=== PATIENT | female | born 1955 | race Asian ===

== ENCOUNTER 2021-03-16 08:28 | Outpatient (REF) | payer OTHER, SELFPAY ==
[2021-03-16 09:38] LABS: Alanine Aminotransferase 42 U/L (0-31); Albumin Level 4.1 g/dL (3.5-5.0); Alkaline Phosphatase 98 U/L (39-117); Anion Gap 12 (12-20); Aspartate Amino Transferase 25 U/L (5-31); Bilirubin Total 0.9 mg/dL (0.0-1.0); Blood Urea Nitrogen 12 mg/dL (9-16); Carbon Dioxide 26 mmol/L (22-29); Chloride 107 mmol/L (96-108); Estimated Glomerular Filt Rate > 60; Glucose Random 122 mg/dL (60-115); Sodium 141 mmol/L (135-145); Total Protein 7.2 g/dL (6.5-8.0)
== END 2021-03-16 08:29 | disposition home or self-care (01) ==
LOC: HO.LAB 08:28
PROVIDERS: PCP Internal Medicine; Visit Provider Internal Medicine
DX: E78.00 Pure hypercholesterolemia, unspecified (principal); Z68.27 Body mass index [BMI] 27.0-27.9, adult
CPT/HCPCS: 36415; 80053

== ENCOUNTER 2021-11-16 06:42 | Outpatient (REF) | payer OTHER, SELFPAY ==
[2021-11-16 07:27] LABS: COVID-19 Test Negative (Negative)
== END 2021-11-16 06:43 | disposition home or self-care (01) ==
LOC: HO.LAB 06:42
PROVIDERS: PCP Internal Medicine; Visit Provider Internal Medicine
DX: Z20.822 Contact with and (suspected) exposure to COVID-19 (principal)
CPT/HCPCS: 36415; 87635

== ENCOUNTER 2022-04-22 07:44 | Outpatient (REF) | payer OTHER, SELFPAY ==
[2022-04-22 08:05] LABS: MANUAL DIFF FLAG NO
[2022-04-22 08:18] LABS: Basophils Absolute Auto 0.1 X10*3/uL (0.0-0.2); Basophils Percent Auto 1.2 % (0-2); Eosinophils Absolute Auto 0.1 X10*3/uL (0.0-0.4); Eosinophils Percent Auto 1.4 % (0-4); Hematocrit 41.2 % (37.0-47.0); Hemoglobin 13.6 g/dl (12.0-16.0); Imm Gran Abs Auto 0.03 X10*3/uL (0.00-0.03); Imm Gran Pct Auto 0.3 % (0.0-0.4); Lymphocytes Absolute Auto 2.6 X10*3/uL (1.2-4.9); Lymphocytes Percent Auto 28.2 % (20-40); Mean Corpuscular Hemoglobin 30.5 pg (27.0-33.0); Mean Corpuscular Volume 92.4 fL (80.0-98.0); Monocytes Absolute Auto 0.7 X10*3/uL (0.1-1.2); Monocytes Percent Auto 7.6 % (2-11); Neutrophils Absolute Auto 5.6 x10*3/uL (2.0-8.3); Neutrophils Percent Auto 61.3 % (45-73); Platelet Count 310 X10*3/uL (160-400); Red Blood Count 4.46 X10*6/uL (4.20-5.50); Red Cell Distribution Width 12.7 % (11.0-16.0); White Blood Count 9.2 X10*3/uL (4.8-10.8)
[2022-04-22 08:46] LABS: Alanine Aminotransferase 19 U/L (0-31); Albumin Level 4.3 g/dL (3.5-5.0); Alkaline Phosphatase 87 U/L (39-117); Anion Gap 12 (12-20); Aspartate Amino Transferase 22 U/L (5-31); Bilirubin Total 0.9 mg/dL (0.0-1.0); Blood Urea Nitrogen 17 mg/dL (9-16); Calcium 9.9 mg/dL (8.4-10.2); Carbon Dioxide 31 mmol/L (22-29); Chloride 103 mmol/L (96-108); Cholesterol 149 mg/dL; Estimated Glomerular Filt Rate > 60; Glucose Random 111 mg/dL (60-115); HDL Cholesterol 51 mg/dL; LDL Cholesterol Calculated 87 mg/dl; Potassium 4.7 mmol/L (3.3-5.1); Sodium 141 mmol/L (135-145); Total Protein 7.7 g/dL (6.5-8.0); Triglycerides 59 mg/dL
== END 2022-04-22 07:45 | disposition home or self-care (01) ==
LOC: HO.LAB 07:44
PROVIDERS: PCP Internal Medicine; Visit Provider Internal Medicine
DX: E78.00 Pure hypercholesterolemia, unspecified (principal); K21.9 Gastro-esophageal reflux disease without esophagitis; R30.0 Dysuria; R35.0 Frequency of micturition
CPT/HCPCS: 36415; 80053; 80061; 85025

== ENCOUNTER 2022-10-07 09:57 | Outpatient (REF) | payer OTHER, SELFPAY ==
--- NOTE | ~2022-10-07 | MM_ITS ---
EXAMINATION: MM SCREENING DIGITAL BREAST TOMOSYNTHESIS, BILATERAL CLINICAL INFORMATION: Screening. Asymptomatic. COMPARISON: Outside mammography 02/18/2021, 09/11/2019, 08/07/2018, 08/02/2018 ([facility]). TECHNIQUE: Digital breast tomosynthesis is performed in both the craniocaudal and mediolateral oblique views along with computer-aided detection (CAD). Synthesized 2D images are generated from the tomosynthesis. Additional left MLO view is provided. FINDINGS: There are scattered areas of fibroglandular density (ACR BI-RADS breast composition Category b). There are no significant masses, abnormal calcifications, or other abnormalities. Parenchymal pattern is similar to prior studies. There is no developing density or architectural abnormality. The axilla and skin contours are unremarkable. No significant changes. MM/MM tomosynthesis screening BI IMPRESSION: No mammographic evidence of malignancy. ASSESSMENT: BI-RADS 1: Negative RECOMMENDATION: Routine annual mammography screening. This patient's information was entered into a reminder system with a target due date for their next mammogram.
== END 2022-10-07 09:58 | disposition home or self-care (01) ==
LOC: HO.MAMMO 09:57
PROVIDERS: PCP Internal Medicine; Visit Provider Internal Medicine
DX: Z12.31 Encounter for screening mammogram for malignant neoplasm of breast (principal)
CPT/HCPCS: 77063; 77067

== ENCOUNTER 2023-03-23 08:17 | Outpatient (REF) | payer OTHER, SELFPAY ==
[2023-03-23 08:50] LABS: Alanine Aminotransferase 22 U/L (0-31); Albumin Level 4.1 g/dL (3.5-5.0); Alkaline Phosphatase 88 U/L (39-117); Anion Gap 12 (12-20); Aspartate Amino Transferase 21 U/L (5-31); Bilirubin Total 0.9 mg/dL (0.0-1.0); Blood Urea Nitrogen 13 mg/dL (9-16); Calcium 9.1 mg/dL (8.4-10.2); Carbon Dioxide 28 mmol/L (22-29); Chloride 108 mmol/L (96-108); Estimated Glomerular Filt Rate > 60; Glucose Random 125 mg/dL (60-115); Potassium 4.5 mmol/L (3.3-5.1); Sodium 143 mmol/L (135-145); Total Protein 7.1 g/dL (6.5-8.0)
== END 2023-03-23 08:18 | disposition home or self-care (01) ==
LOC: HO.LAB 08:17
PROVIDERS: PCP Internal Medicine; Visit Provider Internal Medicine
DX: Z00.00 Encounter for general adult medical examination without abnormal findings (principal); E78.00 Pure hypercholesterolemia, unspecified; Z86.010 Personal history of colon polyps
CPT/HCPCS: 36415; 80053

== ENCOUNTER 2023-10-14 10:00 | Outpatient (REF) | payer OTHER, SELFPAY | END 2023-10-14 10:01 | disposition home or self-care (01) | LOC: HO.MAMMO 10:00 | PROVIDERS: PCP Internal Medicine; Visit Provider Internal Medicine | DX: Z12.31 Encounter for screening mammogram for malignant neoplasm of breast (principal) | CPT/HCPCS: 77063; 77067 ==

== ENCOUNTER → 2023-10-14 10:30 | Outpatient (BNV) | payer OTHER, SELFPAY | PROVIDERS: PCP Internal Medicine; Visit Provider Radiology Diagnostic Radiology | DX: Z12.31 Encounter for screening mammogram for malignant neoplasm of breast (principal) | CPT/HCPCS: 77063; 77067 ==

== ENCOUNTER 2024-03-13 07:42 | Outpatient (REF) | payer OTHER, SELFPAY ==
[2024-03-13 07:54] LABS: MANUAL DIFF FLAG NO
[2024-03-13 08:46] LABS: Basophils Absolute Auto 0.1 X10*3/uL (0.0-0.2); Basophils Percent Auto 1.4 % (0-2); Eosinophils Absolute Auto 0.1 X10*3/uL (0.0-0.4); Eosinophils Percent Auto 1.6 % (0-4); Hematocrit 42.6 % (37.0-47.0); Imm Gran Abs Auto 0.02 X10*3/uL (0.00-0.03); Imm Gran Pct Auto 0.3 % (0.0-0.4); Lymphocytes Percent Auto 28.2 % (20-40); Mean Corpuscular HGB Conc 32.9 g/dl (31.0-35.0); Mean Corpuscular Hemoglobin 29.7 pg (27.0-33.0); Mean Corpuscular Volume 90.4 fL (80.0-98.0); Mean Platelet Volume 8.9 fL (9.4-12.3); Monocytes Absolute Auto 0.5 X10*3/uL (0.1-1.2); Monocytes Percent Auto 7.5 % (2-11); Neutrophils Absolute Auto 4.3 x10*3/uL (2.0-8.3); Platelet Count 303 X10*3/uL (160-400); Red Blood Count 4.71 X10*6/uL (4.20-5.50); Red Cell Distribution Width 12.9 % (11.0-16.0); White Blood Count 7.1 X10*3/uL (4.8-10.8)
[2024-03-13 09:44] LABS: Alanine Aminotransferase 32 U/L (0-31); Albumin Level 4.4 g/dL (3.5-5.0); Alkaline Phosphatase 102 U/L (39-117); Anion Gap 12 (12-20); Aspartate Amino Transferase 32 U/L (5-31); Bilirubin Total 0.9 mg/dL (0.0-1.0); Blood Urea Nitrogen 12 mg/dL (9-16); Calcium 9.7 mg/dL (8.4-10.2); Carbon Dioxide 29 mmol/L (22-29); Chloride 105 mmol/L (96-108); Cholesterol 142 mg/dL (<200); Estimated Glomerular Filt Rate > 60; Glucose Random 118 mg/dL (60-115); HDL Cholesterol 54 mg/dL (>40); LDL Cholesterol Calculated 78 mg/dL (<100); Sodium 142 mmol/L (135-145); Total Protein 8.1 g/dL (6.5-8.0); Triglycerides 52 mg/dL (<150)
== END 2024-03-13 07:43 | disposition home or self-care (01) ==
LOC: HO.LAB 07:42
PROVIDERS: PCP Internal Medicine; Visit Provider Internal Medicine
DX: Z13.31 Encounter for screening for depression (principal); E78.00 Pure hypercholesterolemia, unspecified; R05.9 Cough, unspecified; Z86.010 Personal history of colon polyps
CPT/HCPCS: 36415; 80053; 80061; 85025

== ENCOUNTER 2024-09-19 07:45 | Outpatient (REF) | payer OTHER, SELFPAY ==
[2024-09-19 08:55] LABS: Estimated Average Glucose 143 mg/dL; Hemoglobin A1C 161.7742 umol/L; Hemoglobin A1c % 6.6 % (<6.0); Total Hemoglobin (HGBA1C) 3331.7713 umol/L
[2024-09-19 09:20] LABS: Alanine Aminotransferase 27 U/L (0-31); Albumin Level 3.9 g/dL (3.5-5.0); Alkaline Phosphatase 105 U/L (39-117); Anion Gap 10 (12-20); Aspartate Amino Transferase 27 U/L (5-31); Bilirubin Total 0.5 mg/dL (0.0-1.0); Blood Urea Nitrogen 10 mg/dL (9-16); Calcium 9.1 mg/dL (8.4-10.2); Carbon Dioxide 28 mmol/L (22-29); Chloride 109 mmol/L (96-108); Cholesterol 137 mg/dL (<200); Estimated Glomerular Filt Rate > 60; Glucose Random 117 mg/dL (60-115); HDL Cholesterol 48 mg/dL (>40); LDL Cholesterol Calculated 78 mg/dL (<100); Potassium 3.7 mmol/L (3.3-5.1); Sodium 143 mmol/L (135-145); Total Protein 7.4 g/dL (6.5-8.0); Triglycerides 57 mg/dL (<150)
== END 2024-09-19 07:46 | disposition home or self-care (01) ==
LOC: HO.LAB 07:45
PROVIDERS: PCP Internal Medicine; Visit Provider Internal Medicine
DX: E78.00 Pure hypercholesterolemia, unspecified (principal); R73.01 Impaired fasting glucose; Z68.26 Body mass index [BMI] 26.0-26.9, adult
CPT/HCPCS: 36415; 80053; 80061; 83036

== ENCOUNTER 2024-11-19 08:43 | Outpatient (REF) | payer OTHER, SELFPAY | END 2024-11-19 08:44 | disposition home or self-care (01) | LOC: HO.MAMMO 08:43 | PROVIDERS: Visit Provider Internal Medicine | DX: Z12.31 Encounter for screening mammogram for malignant neoplasm of breast (principal) | CPT/HCPCS: 77063; 77067 ==

== ENCOUNTER → 2024-11-19 08:45 | Outpatient (BNV) | payer OTHER, SELFPAY | PROVIDERS: Visit Provider Internal Medicine | DX: Z12.31 Encounter for screening mammogram for malignant neoplasm of breast (principal) | CPT/HCPCS: 77063; 77067 ==

== ENCOUNTER 2024-12-23 08:30 | Outpatient (REF) | payer OTHER, SELFPAY ==
[2024-12-23 09:27] LABS: Estimated Average Glucose 143 mg/dL; Hemoglobin A1C 173.8706 umol/L; Hemoglobin A1c % 6.6 % (<6.0); Total Hemoglobin (HGBA1C) 3616.3305 umol/L
[2024-12-23 09:40] LABS: Alanine Aminotransferase 27 U/L (0-31); Albumin Level 3.9 g/dL (3.5-5.0); Alkaline Phosphatase 95 U/L (39-117); Anion Gap 11 (12-20); Aspartate Amino Transferase 30 U/L (5-31); Bilirubin Total 0.8 mg/dL (0.0-1.0); Blood Urea Nitrogen 13 mg/dL (9-16); Calcium 9.1 mg/dL (8.4-10.2); Carbon Dioxide 25 mmol/L (22-29); Chloride 109 mmol/L (96-108); Estimated Glomerular Filt Rate > 60; Glucose Random 104 mg/dL (60-115); Potassium 3.9 mmol/L (3.3-5.1); Sodium 141 mmol/L (135-145)
[2024-12-23 10:02] LABS: Creatinine Urine 257.73 mg/dL; Microalbum/Creatinine Ratio Ur 5.8 ug/mg cr (<30)
--- OUTSIDE RECORDS SUMMARY | 2024-12-23 12:44 | XMS_ITS | Clinical Summary ---
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 Name Role Phone Unavailable Primary Care Provider Unavailabl e Social History Tobacco Use Types Packs/Day Years Used Date Smoking Tobacco: Never Assessed Sex and Gender Information Value Date Recorded Sex Assigned at Not on file Gender Identity Not on file Sexual Orientation Not on file Plan of Treatment Health Maintenance Due Date Last Done Comments DTaP,Tdap,and Td Vaccines (1 - Tdap) 1976 Zoster Vaccines (1 of 2) 2007 Pneumococcal Vaccine: 65+ Years (1 of 1 - PCV) 2022 Breast Cancer Screening 02/18/2023 02/19/20 21, 09/11/2019, 08/02/2018 COVID-19 Vaccine ( - 2023-2 5 season) 2024 Influenza Vaccine (#1) 2024 RSV Immunization Patients 60 + Years Old (1 - 1-dose 75+ series) 2032 HIB Vaccines Aged Out No longer eligi ble based on patient's age to complete this topic HPV Vaccines Aged Out No longer eligi ble based on patient's age to complete this topic Hepatitis A Vaccines Aged Out No long er eligible based on patient's age to complete this topic Hepatitis B Vaccines Aged Out No long er eligible based on patient's age to complete this topic IPV Vaccines Aged Out No longer eligi ble based on patient's age to complete this topic MMR Vaccines Aged Out No longer eligi ble based on patient's age to complete this topic Meningococcal ACWY Vaccine Aged Out N o longer eligible based on patient's age to complete this topic RSV Immunization Patients Under 20 months Aged Out No longer eligible b ased on patient's age to complete this topic Varicella Vaccines Aged Out No longer eligible based on patient's age to complete this topic Procedures Procedure Name Priority Date/Time Associated Diagnosis Comments [place] SCREENING DIGITAL Routine 02/18/2021 4:48 PM EDT Encounter for screening mammogram for malignant neoplasm of breast from Last 3 Months or Most Recently Relevant to Health Maintenance Results * [facility] [place] SCREENING DIGITAL (02/18/2021 4:48 PM EDT) Anatomical Region Laterality Modality Mammography 02/18/2021 3:13 PM EDT Narrative 02/18/2021 4:48 PM EDT [facility] Diagnostic Imaging Department [address] [place] [address] Patient: ??ADALNENA ?/Age/Sex: 1955 - 65 - F Unit#: ??[id number] ? Location/Status: ??SPDIMAM/REG CLI ? Mnemonic/Ordering Site: ??DIGSC/SPMAM Ordering Physician: ??KARLA GUERRERO MD [facility] Screening Digital - 02/18/21 - 9280 INDICATION: SCREENING COMPARISON: [facility] mammograms dating back to ?? 08/17/2015 TECHNIQUE: CC and MLO views of the breasts were obtained, using full field digital mammography with 3D tomosynthesis views in the MLO projection. Computer aided detection with the Network Game Interaction 7.2-H was employed. FINDINGS: The breasts contain scattered fibroglandular tissues. No suspicious masses, suspicious microcalcifications, or areas of architectural distortion are identified. ?? There are no secondary signs of breast malignancy. IMPRESSION: ??No specific mammographic evidence of breast malignancy. Lack of an imaging correlate should not deter or delay biopsy of a clinically significant palpable finding. BI-RADS ??- Category 1: Negative 3341F, 7025F Annual screening mammography is recommended. Patient entered into a reminder system with a target date for the next mammogram. (G0202 / [id number]) , ??[id number] Dictating Physician: ??GARY MANUEL MD Electronically Signed by: ??GARY MANUEL MD Dic Date/Time: ??02/18/211645 Sign date/Time: ??02/18/21 1648 Procedure Note Gary Manuel MD - 11/15/2022 [facility] Diagnostic Imaging Department [address] [place] [id number] Patient: ADALNENA /Age/Sex: 1955 - 65 - F Unit#: [id number] Location[facility] Mn[facility]onic/Ordering Site: [facility] Ordering Physician: KARLA GUERRERO MD [place] Screening Digital - 02/18/21 - 1550 INDICATION: SCREENING COMPARISON: [facility] mammograms dating back to 08/17/2015 TECHNIQUE: CC and MLO views of the breasts were obtained, using full field digital mammography with 3D tomosynthesis views in the MLO projection. Computer aided detection with the Network Game Interaction 7.2-H was employed. FINDINGS: The breasts contain scattered fibroglandular tissues. No suspicious masses, suspicious microcalcifications, or areas ofarchitectural distortion are identified. There are no secondary signs of breastmalignancy. IMPRESSION: No specific mammographic evidence of breast malignancy. Lack of an imaging correlate should not deter or delay biopsy of aclinically significant palpable finding. BI-RADS - Category 1: Negative 3341F, 7025F Annual screening mammography is recommended. Patient entered into a reminder system with a target date for the next mammogram. G0202 / [id number] , [id number] Dictating Physician: GARY MANUEL MD Electronically Signed by: GARY MANUEL MD Dic Date/Time: 02/18/21 1646 Sign date/Time: 02/18/21 1648 Karla Guerrero MD IMG BI PROCEDURES from Last 3 Months or Most Recently Relevant to Health Maintenance
== END 2024-12-23 08:31 | disposition home or self-care (01) ==
LOC: HO.LAB 08:30
PROVIDERS: PCP Internal Medicine; Visit Provider Internal Medicine
DX: Z00.00 Encounter for general adult medical examination without abnormal findings (principal); E11.9 Type 2 diabetes mellitus without complications; E78.00 Pure hypercholesterolemia, unspecified; Z86.0101 Personal history of adenomatous and serrated colon polyps
CPT/HCPCS: 36415; 80053; 82043; 82570; 83036

== ENCOUNTER 2024-12-29 18:55 | Inpatient (IN) | payer OTHER, SELFPAY ==
--- NOTE | ~2024-12-29 | CT_ITS ---
CLINICAL HISTORY: fevers, cough, crackles LLL CT chest without contrast Comparison: CR - XR CHEST 1V - 12/29/24 19:55 EST Findings: The heart size is normal. The visualized thyroid and mediastinum are unremarkable. There are small scattered opacities in both mid to lower lungs. Most evident in the anterior segment right upper lobe. No pleural effusion. Prior granulomatous disease. The upper abdomen is unremarkable. No acute fractures. IMPRESSION: Multifocal lung opacities suggesting pneumonia. This document has been electronically signed by: Sole Arenas MD on 12/30/2024 00:18:45
--- NOTE | ~2024-12-29 | XR_ITS ---
CLINICAL HISTORY: Coughing. Pneumonia? 1 view chest x-ray Comparison: CR/SR - CHEST 1 VIEW - 02/15/20 10:08 EDT Findings: No consolidation or effusion. Heart size is normal. No acute fracture. IMPRESSION: 1. No acute findings. This document has been electronically signed by: Andrés Bernabe MD on 12/29/2024 20:32:57
--- NOTE | 2024-12-29 18:58 | ECG_ITS ---
Test Reason : CP Blood Pressure : */* mmHG Vent. Rate : 120 BPM Atrial Rate : 120 BPM P-R Int : 130 ms QRS Dur : 78 ms QT Int : 320 ms P-R-T Axes : 74 39 43 degrees QTcB Int : 452 ms Sinus tachycardia Otherwise normal ECG When compared with ECG of 15-Feb-2020 10:02, No significant change was found Referred By: Generic ED Physician Electronically Signed By: Destin Mortesnen
[2024-12-29 19:38] VITALS: BP 125/39; PULSE 114; RESP 20; TEMP 37.7; O2SAT 95; BMI 24.0
--- NOTE | 2024-12-29 19:42 | ED_ITS ---
HPI - General Adult General Chief complaint: Upper Respiratory Symptoms Stated complaint: fever/coughing blood/congested/chest pain Time Seen by Provider: 12/29/24 22:41 Source: patient and family Mode of arrival: ambulatory Limitations: no limitations History of Present Illness ED Provider: NEMESIO KAT narrative: 69 yo female with PMH of HLD who has been sick for about 10 days with a cough that will not go away, poor appetite, nausea, weakness, BPs lower than usual at home, then for 48 hours persistent fevers to 101. She was around someone sick two weeks ago but her illness is much worse. She has no other PMH. She denies abdominal pain, dysuria, she does have loose stools. She traveled to [place] in October but was fine on returning. She came tonight as she does not seem to be getting better. MD complaint: fevers/cough Onset (ago): day(s) (10) Location: chest Radiation: non-radiation Severity: moderate Relieving factors: none Exacerbating factors: other (exertion, coughing) Associated symptoms: cough, fever/chills, headaches, loss of appetite, malaise, nausea/vomiting and weakness Treatments prior to arrival: none Related Data Home Medications ?Medication ?Instructions ?Recorded ?Confirmed benzonatate 100 mg capsule 100 mg PO TID 12/30/24 12/30/24 Allergies Allergy/AdvReac Type Severity Reaction Status Date / Time iron [IRON] Allergy Intermediate STOMACH Verified 12/29/24 19:41 UPSET ondansetron [From Zofran] Allergy Rash Verified 12/29/24 19:41 Review of Systems 2 Review of Systems: Constitutional : pos Fever, pos Chills ENT/Mouth : No Hoarseness, No sore throat, No Rhinorrhea Eyes: No Redness, No Discharge, No Vision Changes Cardiovascular : pos Chest Pain, positive SOB Respiratory : positive Cough, No Sputum, positive Wheezing, Gastrointestinal : No Nausea, No Vomiting, No Diarrhea, No abdominal Pain Genitourinary : No Dysuria, No Hematuria Musculoskeletal : No joint pain, pos Myalgias Skin : No rash Neuro : pos Weakness, No Numbness, No Headache All other systems reviewed and are negative PMFSH Past Medical History Attestation statement: The following information was validated with the patient. Source: old records reviewed Medical History Hyperlipidemia Social History Social History Patient Tobacco Use Status: Never used Tobacco Smoked in Last 30 Days: No Use of substances other than those prescribed or required for medical reasons: No Advance Directives: No Advance Directives Information Provided: Yes Nutrition Risks: No Nutritional Risk Physical Exam ED Vital Signs: Vital Signs - 24 hr 12/29/24 19:38 12/29/24 22:34 12/29/24 22:34 Temperature 99.9 F 98.5 F Pulse Rate 114 H 82 Respiratory Rate 20 16 Blood Pressure 125/39 L 90/43 L Pulse Oximetry 95 95 95 Oxygen Delivery Method Room Air Room Air Room Air 12/29/24 23:39 12/29/24 23:51 12/30/24 00:31 Temperature 98.0 F 98.1 F 97.9 F Pulse Rate 82 79 79 Respiratory Rate 18 20 18 Blood Pressure 114/56 L 112/61 116/62 Pulse Oximetry 96 96 96 Oxygen Delivery Method Room Air Room Air Room Air 12/30/24 01:02 12/30/24 01:11 Temperature Pulse Rate 86 89 Respiratory Rate 20 19 Blood Pressure 115/68 125/68 Pulse Oximetry 97 97 Oxygen Delivery Method Room Air Room Air BMI result Body Mass Index 24.0 Appearance: Alert. Oriented X3. No acute distress. Eyes: Pupils equal, round and reactive to light. ENT: Pharynx normal. Neck: Normal inspection. Neck supple. CVS: tachycardic heart rate and rhythm. Pulses normal. Respiratory: No respiratory distress. Breath sounds crackles right and left bases Abdomen: Soft and non-tender. Skin: Skin warm and dry. Normal skin color. Extremities: No lower extremity edema. Neuro: Oriented X 3. No motor deficit. No sensory deficit. CN2-12 intact Course Course Course Narrative: RmE: 69-year-old female presents to ED for cough, body aches, fever and chills. Patient also presents states lost voice. Symptoms for the past 3 days. Son Was sick 1st. SARs strep chest x-ray ordered. EKG ordered at triage. Medications Administered Generic Name Dose Route Start Last Admin Trade Name Freq PRN Reason Stop Dose Admin Benzonatate 100 mg 12/30/24 02:05 12/30/24 08:15 Benzonatate 100 Mg Capsule PO 100 mg TID RONA Administration Enoxaparin Sodium 40 mg 12/30/24 09:00 12/30/24 08:15 Enoxaparin Sodium 40 Mg/0.4 Ml Syringe SUBCUT 40 mg DAILY RONA Administration Guaifenesin/Dextromethorphan 1 tab 12/30/24 02:05 12/30/24 08:15 Guaifenesin Dm 600/30 1 Tab Tab.Er.12h PO 1 tab BID RONA Administration Sodium Chloride 3 ml 12/30/24 08:00 12/30/24 08:15 0.9 % Sodium Chloride Flush 3 Ml Syringe IVFLUSH 3 ml QSHIFT RONA Administration Discontinued Medications Generic Name Dose Route Start Last Admin Trade Name Freq PRN Reason Stop Dose Admin Acetaminophen 975 mg 12/29/24 19:42 12/29/24 19:44 Acetaminophen 325 Mg Tablet PO 12/29/24 19:43 975 mg ONCE ONE Administration Ceftriaxone Sodium 1 gm 12/29/24 22:58 12/29/24 23:22 Ceftriaxone Sodium 1 Gm Vial IVPUSH 12/29/24 22:59 1 gm ONCE ONE Administration Lactated Ringer's 1,564.89 mls @ 1,564.89 mls/hr 12/29/24 22:58 12/30/24 00:59 Lr 30 ml/kg infuse over 1 hr (1564.89 ml) 12/29/24 23:57 Infused IV Infusion .Q1H ONE Acetaminophen 1,000 mg in 100 mls @ 400 mls/hr 12/29/24 22:58 12/29/24 23:38 Ofirmev IV 12/29/24 23:12 Infused ONCE ONE Infusion Azithromycin 500 mg/ Sodium 250 mls @ 125 mls/hr 12/29/24 23:47 12/30/24 02:11 Chloride IV 12/30/24 01:46 Infused ONCE ONE Infusion Medical Decision Making Medical Decision Making MDM Narrative: 69 yo female with PMH of HLD here with c/o cough fevers, congestion and clinically I am concerned for pneumonia will obtain sepsis workup start on IVF 30cc/kg bolus, IV ceftriaxone and IV azithromycin, CT chest for better look of lungs, anticipate admission. Differential Diagnosis Differential Diagnoses: The differential diagnosis associated with the presentation includes viral panel, pneumonia, dehydration Admission/Observation Consideration of admission/observation: Escalation of care including admission/observation considered admit for further workup and treatment Consult Healthcare Provider Management of the patient was discussed with: Hospitalist will admit Lab Data MDM Lab Attestation statement: I reviewed the patient's lab results. 12/30/24 04:28 12/30/24 04:28 Labs: Lab Results 12/29/24 12/29/24 Range/Units 20:17 23:12 WBC 18.9 H (4.8-10.8) X10*3/uL RBC 4.34 (4.20-5.50) X10*6/uL Hgb 12.7 (12.0-16.0) g/dl Hct 37.5 (37.0-47.0) % MCV 86.4 (80.0-98.0) fL MCH 29.3 (27.0-33.0) pg MCHC 33.9 (31.0-35.0) g/dl RDW 13.0 (11.0-16.0) % Plt Count 341 (160-400) X10*3/uL MPV 8.6 L (9.4-12.3) fL Immature Gran % (Auto) 0.5 H (0.0-0.4) % Neut % (Auto) 84.4 H (45-73) % Lymph % (Auto) 8.2 L (20-40) % [place] % (Auto) 6.4 (2-11) % Eos % (Auto) 0.1 (0-4) % Baso % (Auto) 0.4 (0-2) % Lymph # (Auto) 1.6 (1.2-4.9) X10*3/uL [place] # (Auto) 1.2 (0.1-1.2) X10*3/uL Eos # (Auto) 0.0 (0.0-0.4) X10*3/uL Baso # (Auto) 0.1 (0.0-0.2) X10*3/uL Abs Immat Gran (auto) 0.09 H (0.00-0.03) X10*3/uL Absolute Neuts (auto) 16.0 H (2.0-8.3) x10*3/uL Absolute Nucleated RBC 0.000 (0.0-0.012) X10*3/uL Nucleated RBC % (auto) 0.0 (0.0-0.2) /100WBC Sodium 134 L (135-145) mmol/L Potassium 3.9 (3.3-5.1) mmol/L Chloride 101 (96-108) mmol/L Carbon Dioxide 22 (22-29) mmol/L Anion Gap 15 (12-20) BUN 8 L (9-16) mg/dL Creatinine 0.87 (0.5-1.4) mg/dL Estim Creat Clear Calc 45.0 Estimated GFR > 60 Random Glucose 228 H (60-115) mg/dL Lactic Acid 1.8 (0.5-2.0) mmol/L Calcium 9.1 (8.4-10.2) mg/dL Magnesium 1.9 (1.6-2.6) mg/dL Total Bilirubin 1.0 (0.0-1.0) mg/dL Direct Bilirubin 0.4 (0.0-0.5) mg/dL AST 99 H (5-31) U/L ALT 102 H (0-31) U/L Alkaline Phosphatase 141 H (39-117) U/L Troponin I High Sens < 2.7 (<3.5-17.0) ng/L C-Reactive Protein 12.17 H (< or = 0.50) mg/dL Total Protein 8.1 H (6.5-8.0) g/dL Albumin 3.7 (3.5-5.0) g/dL Lipase 14 (8-78) U/L Procalcitonin 1.36 ng/mL Urine Color Dark Yellow Urine Appearance Clear Urine pH 5.5 (5.0-9.0) Ur Specific [place] 1.025 (1.005-1.025) Urine Protein Trace (Neg-Trace) mg/dL Urine Glucose (UA) Negative (Negative) mg/dL Urine Ketones 40 (Negative) mg/dL Urine Blood Moderate (2+) H (Negative) Urine Nitrite Negative (Negative) Ur Leukocyte Esterase Trace H (Negative) Urine RBC >20 H (0-2) /HPF Urine WBC 0-5 (0-5) /HPF Ur Squamous Epith Cells 3-5 (0-2) /HPF Urine Bacteria None Seen (None Seen) Hyaline Casts 3-5 (0-2) /LPF Influenza Type A (PCR) NEGATIVE (Negative) Influenza Type B (PCR) NEGATIVE (Negative) RSV RNA Qual (PCR) NEGATIVE (Negative) SARS-CoV-2 RNA (RT-PCR) NEGATIVE (Negative) S. pyogenes GrpA NAMITA Negative (Negative) Independent Interpretation I performed an independent interpretation of an: EKG, Plain X-Ray (opacities noted) and CT Scan (multifocal pneumonia) Interpretation: Rate: Rhythm: [place]: Normal P waves. Normal CLIFF. Normal QRS complex. ST T wave : qTC: prior studies: The study has been interpreted contemporaneously by me. . Radiology Impression Discussion of test interpretation with radiology: I have reviewed the radiologist's reading. Independent Historian Clinical information obtained from an independent historian. History obtained from or confirmed by: Other (daughter) External Record Review External record reviewed: Outpatient record Discharge Plan Discharge Clinical Impression: Multifocal pneumonia, Nausea Elevated WBC count Qualifiers: Leukocytosis type: unspecified Qualified Code(s): D72.829 - Elevated white blood cell count, unspecified Patient Disposition: Admitted As Inpatient Interventions: Admission Worksheet (ED) Last Done: 12/30/24 09:07
[2024-12-29] MEDS: Acetaminophen 325 MG TABLET 975 MG PO (19:44)
[2024-12-29 20:35] LABS: IDNOW Serial# 08D9AD1C; Strep A Nucleic Acid Negative (Negative)
[2024-12-29 21:04] LABS: Influenza A PCR NEGATIVE (Negative); Influenza B PCR NEGATIVE (Negative); Resp Syncy Virus RNA Qual PCR NEGATIVE (Negative); SARS COV2 PCR INHOUSE NEGATIVE (Negative)
[2024-12-29 22:34] VITALS: BP 90/43; PULSE 82; RESP 16; TEMP 36.9; O2SAT 95
[2024-12-29 23:22] LABS: MANUAL DIFF FLAG NO
[2024-12-29] MEDS: cefTRIAXone sodium 1 GM VIAL IVPUSH (23:22)
[2024-12-29] MEDS: Lactated Ringers 1,564.89 ML 1564.89 ML IV (23:23)
[2024-12-29] MEDS: Acetaminophen 1,000 MG/100 ML PIGGYBACK 400 MG IV (23:23)
[2024-12-29 23:26] LABS: Appearance Urine Clear; Color Urine Dark Yellow; Glucose Urine UA Negative (Negative); Leukocyte Esterase Urine Trace (Negative); Nitrite Urine Negative (Negative); PH 5.5 (5.0-9.0); Specific Gravity - Urine 1.025 (1.005-1.025); UMIC TRIGGER UACC YES; Urine Blood Moderate (2+) (Negative); Urine Ketones 40 mg/dL (Negative); Urine Protein Trace mg/dL (Neg-Trace)
[2024-12-29 23:28] LABS: Bacteria Urine None Seen (None Seen); Basophils Absolute Auto 0.1 X10*3/uL (0.0-0.2); Basophils Percent Auto 0.4 % (0-2); Eosinophils Percent Auto 0.1 % (0-4); Hematocrit 37.5 % (37.0-47.0); Hemoglobin 12.7 g/dl (12.0-16.0); Imm Gran Abs Auto 0.09 X10*3/uL (0.00-0.03); Imm Gran Pct Auto 0.5 % (0.0-0.4); Lymphocytes Absolute Auto 1.6 X10*3/uL (1.2-4.9); Lymphocytes Percent Auto 8.2 % (20-40); Mean Corpuscular HGB Conc 33.9 g/dl (31.0-35.0); Mean Corpuscular Hemoglobin 29.3 pg (27.0-33.0); Mean Corpuscular Volume 86.4 fL (80.0-98.0); Mean Platelet Volume 8.6 fL (9.4-12.3); Monocytes Absolute Auto 1.2 X10*3/uL (0.1-1.2); Monocytes Percent Auto 6.4 % (2-11); Neutrophils Percent Auto 84.4 % (45-73); Platelet Count 341 X10*3/uL (160-400); RBC Urine >20 /HPF (0-2); Red Blood Count 4.34 X10*6/uL (4.20-5.50); WBC Urine 0-5 /HPF (0-5); White Blood Count 18.9 X10*3/uL (4.8-10.8)
[2024-12-29 23:39] VITALS: BP 114/56; PULSE 82; RESP 18; TEMP 36.7; O2SAT 96
[2024-12-29 23:39] LABS: Lactic Acid 1.8 mmol/L (0.5-2.0)
[2024-12-29 23:45] LABS: Alanine Aminotransferase 102 U/L (0-31); Albumin Level 3.7 g/dL (3.5-5.0); Alkaline Phosphatase 141 U/L (39-117); Anion Gap 15 (12-20); Aspartate Amino Transferase 99 U/L (5-31); Bilirubin Direct 0.4 mg/dL (0.0-0.5); Blood Urea Nitrogen 8 mg/dL (9-16); C Reactive Protein 12.17 mg/dL (< or = 0.50); Calcium 9.1 mg/dL (8.4-10.2); Carbon Dioxide 22 mmol/L (22-29); Chloride 101 mmol/L (96-108); Estimated Glomerular Filt Rate > 60; Glucose Random 228 mg/dL (60-115); Lipase 14 U/L (8-78); Magnesium 1.9 mg/dL (1.6-2.6); Potassium 3.9 mmol/L (3.3-5.1); Sodium 134 mmol/L (135-145); Total Protein 8.1 g/dL (6.5-8.0)
[2024-12-29 23:46] LABS: Troponin-I High Sensitivity < 2.7 ng/L (<3.5-17.0)
[2024-12-29 23:51] VITALS: BP 112/61; PULSE 79; RESP 20; TEMP 36.7; O2SAT 96
[2024-12-30] VITALS (8 sets, daily range): BP systolic 101–125; BP diastolic 50–68; PULSE 64–89; RESP 17–20; TEMP 36.6–37.3; O2SAT 93–97
[2024-12-30] LABS: Procalcitonin 1.36 ng/mL
[2024-12-30] MEDS: Azithromycin 500 MG in 0.9 % Sodium Chloride 250 ML 125 MG IV ×2 (00:11→20:57)
--- NOTE | 2024-12-30 00:30 | P.HPHOSP_ITS ---
History of Present Illness Date of Service: 12/30/24 Chief Complaint: weakness, SOB A 69 years old lady with PMH of HLD who presented to the hospital with shortness of breath, cough and fever for the last 2-3 days. The patient reports being sick for almost 10 days now with upper respiratory infection that did not resolved and for the last 2 days she started spiking fever and feels weak with no energy. No chest pain, palpitations, nausea, vomiting, diarrhea or urinary symptoms. In ED found to have low BP, elevated WBCs of 18k with CT scan showing multifocal pneumonia. Admitted for further work up and treatment. Review of Systems 2 Review of Systems: having fever, chills andweakness No chest pain, palpitation reporting shortness of breath or coughing No abdominal pain, nausea or vomiting No urinary symptoms No any rash or wounds PMFSH Medical History Hyperlipidemia Social History Patient Tobacco Use Status: Never used Tobacco Smoked in Last 30 Days: No Use of substances other than those prescribed or required for medical reasons: No Advance Directives: No Advance Directives Information Provided: Yes Meds Allergies Allergy/AdvReac Type Severity Reaction Status Date / Time iron [IRON] Allergy Intermediate STOMACH Verified 12/29/24 19:41 UPSET ondansetron [From Zofran] Allergy Rash Verified 12/29/24 19:41 Active Medications: Current Medications Azithromycin 500 mg/ Sodium (Chloride) 250 mls @ 125 mls/hr IV ONCE ONE Stop: 12/30/24 01:46 Last Admin: 12/30/24 00:11 Dose: 125 mls/hr Physical Exam 2 Vital Signs and Narrative: Vital Signs: Last Vital Signs Temp 98.1 F 12/29/24 23:51 Pulse 79 12/29/24 23:51 Resp 20 12/29/24 23:51 BP 112/61 12/29/24 23:51 Pulse Ox 96 12/29/24 23:51 O2 Del Method Room Air 12/29/24 23:51 BMI result Body Mass Index 24.0 Const: Other: Constitutional : Awake, interactive, not in distress Neck : Normal inspection, Supple Cardiovascular : RRR, no JVP, no lower extremity edema Respiratory : decreased bilateral air entry at basis with bilateral crackles, no wheezes Gastrointestinal: soft, lax, Normal bowel sounds, Non tender Skin : Warm, Dry Neurological : Alert & oriented x3, No focal deficit Results Labs 12/29/24 23:12 12/29/24 23:12 Labs: Laboratory Results - last 24 hr 12/29/24 12/29/24 20:17 23:12 MCV 86.4 MCH 29.3 MCHC 33.9 RDW 13.0 Plt Count 341 MPV 8.6 L Immature Gran % (Auto) 0.5 H Neut % (Auto) 84.4 H Lymph % (Auto) 8.2 L [place] % (Auto) 6.4 Eos % (Auto) 0.1 Baso % (Auto) 0.4 Lymph # (Auto) 1.6 [place] # (Auto) 1.2 Eos # (Auto) 0.0 Baso # (Auto) 0.1 Abs Immat Gran (auto) 0.09 H Absolute Neuts (auto) 16.0 H Absolute Nucleated RBC 0.000 Nucleated RBC % (auto) 0.0 Anion Gap 15 Estim Creat Clear Calc 45.0 Estimated GFR > 60 Random Glucose 228 H Lactic Acid 1.8 Calcium 9.1 Magnesium 1.9 Total Bilirubin 1.0 Direct Bilirubin 0.4 AST 99 H ALT 102 H Alkaline Phosphatase 141 H Troponin I High Sens < 2.7 C-Reactive Protein 12.17 H Total Protein 8.1 H Albumin 3.7 Lipase 14 Procalcitonin 1.36 Urine Color Dark Yellow Urine Appearance Clear Urine pH 5.5 Ur Specific [place] 1.025 Urine Protein Trace Urine Glucose (UA) Negative Urine Ketones 40 Urine Blood Moderate (2+) H Urine Nitrite Negative Ur Leukocyte Esterase Trace H Urine RBC >20 H Urine WBC 0-5 Ur Squamous Epith Cells 3-5 Urine Bacteria None Seen Hyaline Casts 3-5 Influenza Type A (PCR) NEGATIVE Influenza Type B (PCR) NEGATIVE RSV RNA Qual (PCR) NEGATIVE SARS-CoV-2 RNA (RT-PCR) NEGATIVE S. pyogenes GrpA NAMITA Negative Assessment and Plan (1) Elevated WBC count: Qualifiers: Leukocytosis type: unspecified Qualified Code(s): D72.829 - Elevated white blood cell count, unspecified Status: Acute (2) Multifocal pneumonia: Status: Acute (3) Sepsis: Status: Acute Plan A 69 years old lady with PMH of HLD who presented to the hospital with shortness of breath, cough and fever for the last 2-3 days. Sepsis 2/2 post viral multifocal pneumonia negative for Flu,RSV and Covid Has Leukocytosis, tachycardia and infx pending blood cultures Continue Azithromycin and Ceftriaxone Cough medicine Transaminitis likely 2/2 Sepsis or recent viral illness to monitor HLD continue Statin DVT PPx Lovenox The patient will need 2 overnight hospital stay for treatment of sepsis with IV antibiotics pending final blood cultures Quality Stroke Does the patient have a stroke diagnosis?: No VTE Prior VTE?: No VTE Risk Level:: Medical - moderate - high VTE Device Contraindication: Treatment Not Indicated VTE Drug Contraindication: N/A - Med Ordered
[2024-12-30] MEDS: Benzonatate 100 MG CAPSULE PO ×3 (02:40→20:57)
[2024-12-30] MEDS: guaiFENesin DM 600/30 1 TAB TAB.ER.12H PO ×3 (02:41→20:56)
[2024-12-30 05:00] LABS: Mean Corpuscular HGB Conc 34.4 g/dl (31.0-35.0); Mean Corpuscular Hemoglobin 29.7 pg (27.0-33.0); Mean Corpuscular Volume 86.5 fL (80.0-98.0); Mean Platelet Volume 8.7 fL (9.4-12.3); Platelet Count 304 X10*3/uL (160-400); White Blood Count 17.8 X10*3/uL (4.8-10.8)
[2024-12-30 05:14] LABS: Anion Gap 12 (12-20); Blood Urea Nitrogen 7 mg/dL (9-16); Calcium 8.6 mg/dL (8.4-10.2); Carbon Dioxide 23 mmol/L (22-29); Chloride 110 mmol/L (96-108); Creatinine Clr Calc Pharmacy 62.1; Estimated Glomerular Filt Rate > 60; Glucose Random 108 mg/dL (60-115); Potassium 3.8 mmol/L (3.3-5.1); Sodium 141 mmol/L (135-145)
[2024-12-30] MEDS: 0.9 % Sodium Chloride Flush 3 ML SYRINGE IVFLUSH ×2 (08:15→20:56)
[2024-12-30] MEDS: Enoxaparin Sodium 40 MG/0.4 ML SYRINGE SUBCUT (08:15)
--- NOTE | 2024-12-30 08:57 | PHA.MEDREC ---
Pharmacy Consult ? Medication Reconciliation Pharmacy has completed the medication reconciliation, spoke to patient at bedside with son. Pt said she used to take atorvastatin 20mg but had a visit with the prescriber and the provider took her off of it. Said she is only taking benzonatate scheduled, not prn.
--- NOTE | 2024-12-30 09:18 | P.PNIM_ITS ---
Subjective Subjective Date of Service: 12/30/24 Interval History: Improved Physical Exam 2 Vital Signs: Vital Signs: Last Vital Signs Temp 97.9 F 12/30/24 08:22 Pulse 64 12/30/24 08:22 Resp 20 12/30/24 08:22 BP 125/62 12/30/24 08:22 Pulse Ox 96 12/30/24 08:22 O2 Del Method Room Air 12/30/24 08:22 BMI result Body Mass Index 24.0 General: AO X 3, no acute distress Resp: CTA bilateral, no accessory muscles used CVS: S1,S2,RRR GI: soft, non tender, non distended Neuro: motor grossly intact, alert Psych: appropriate affect, appropriate insight Objective Data Active Medications Acetaminophen (Acetaminophen 325 Mg Tablet) 650 mg PO Q6H PRN PRN Reason: Pain, Mild 1-3,fever,headache Benzonatate (Benzonatate 100 Mg Capsule) 100 mg PO TID [facility] Last Admin: 12/30/24 08:15 Dose: 100 mg Documented By: JORGE Calcium Carbonate (Calcium Carbonate 750 Mg Tab.Chew) 750 mg PO Q4H PRN PRN Reason: Heartburn Ceftriaxone Sodium (Ceftriaxone Sodium 1 Gm Vial) 1 gm IVPUSH BEDTIME [facility] Enoxaparin Sodium (Enoxaparin Sodium 40 Mg/0.4 Ml Syringe) 40 mg SUBCUT DAILY [facility] Last Admin: 12/30/24 08:15 Dose: 40 mg Documented By: JORGE Guaifenesin/Codeine Phosphate (Guaifen/Codeine Sf 200/20/10ml 10 Ml Liquid) 10 ml PO Q6H PRN PRN Reason: Cough Guaifenesin/Dextromethorphan (Guaifenesin Dm 600/30 1 Tab Tab.Er.12h) 1 tab PO BID [facility] Last Admin: 12/30/24 08:15 Dose: 1 tab Documented By: JORGE Azithromycin 500 mg/ Sodium (Chloride) 250 mls @ 125 mls/hr IV BEDTIME [facility] Magnesium Hydroxide (Milk Of Magnesia 30 Ml Oral.Susp) 30 ml PO DAILY PRN PRN Reason: Constipation Melatonin (Melatonin 3 Mg Tablet) 6 mg PO BEDTIME PRN PRN Reason: Insomnia Ondansetron HCl (Ondansetron Hcl 4 Mg/2 Ml Vial) 4 mg IVPUSH Q8H PRN PRN Reason: Nausea and Vomiting Sodium Chloride (0.9 % Sodium Chloride Flush 3 Ml Syringe) 3 ml IVFLUSH QSHIFT [facility] Last Admin: 12/30/24 08:15 Dose: 3 ml Documented By: JORGE Labs 12/30/24 04:28 12/30/24 04:28 Labs: Laboratory Results - last 24 hr 12/29/24 12/29/24 12/30/24 20:17 23:12 04:28 MCV 86.4 86.5 MCH 29.3 29.7 MCHC 33.9 34.4 RDW 13.0 13.0 Plt Count 341 304 MPV 8.6 L 8.7 L Immature Gran % (Auto) 0.5 H Neut % (Auto) 84.4 H Lymph % (Auto) 8.2 L Dickens % (Auto) 6.4 Eos % (Auto) 0.1 Baso % (Auto) 0.4 Lymph # (Auto) 1.6 Dickens # (Auto) 1.2 Eos # (Auto) 0.0 Baso # (Auto) 0.1 Abs Immat Gran (auto) 0.09 H Absolute Neuts (auto) 16.0 H Absolute Nucleated RBC 0.000 0.000 Nucleated RBC % (auto) 0.0 0.0 Anion Gap 15 12 Estim Creat Clear Calc 45.0 62.1 Estimated GFR > 60 > 60 Random Glucose 228 H 108 Lactic Acid 1.8 Calcium 9.1 8.6 Magnesium 1.9 Total Bilirubin 1.0 Direct Bilirubin 0.4 AST 99 H ALT 102 H Alkaline Phosphatase 141 H Troponin I High Sens < 2.7 C-Reactive Protein 12.17 H Total Protein 8.1 H Albumin 3.7 Lipase 14 Procalcitonin 1.36 Urine Color Dark Yellow Urine Appearance Clear Urine pH 5.5 Ur Specific Sims 1.025 Urine Protein Trace Urine Glucose (UA) Negative Urine Ketones 40 Urine Blood Moderate (2+) H Urine Nitrite Negative Ur Leukocyte Esterase Trace H Urine RBC >20 H Urine WBC 0-5 Ur Squamous Epith Cells 3-5 Urine Bacteria None Seen Hyaline Casts 3-5 Influenza Type A (PCR) NEGATIVE Influenza Type B (PCR) NEGATIVE RSV RNA Qual (PCR) NEGATIVE SARS-CoV-2 RNA (RT-PCR) NEGATIVE S. pyogenes GrpA NAMITA Negative Assessment and Plan (1) Sepsis: Status: Acute Plan 69F PMH hyperlipidemia presented with shortness of breath Sepsis secondary to pneumonia Check viral swab, continue ceftriaxone azithromycin, follow up cultures DVT prophylaxis with Lovenox Full Code reason for continued hospitalization: Still short of breath and coughing Quality Stroke Does the patient have a stroke diagnosis?: No VTE Prior VTE?: No VTE Risk Level:: Medical - moderate - high VTE Device Contraindication: Treatment Not Indicated VTE Drug Contraindication: N/A - Med Ordered
--- NOTE | 2024-12-30 12:46 | MHC.CM.PN ---
pt lives with is independent had no previous services has own ride home dc plan home n/s
[2024-12-30] MEDS: guaiFEN/Codeine SF 200/20/10ML 10 ML LIQUID PO ×2 (15:16→22:17)
[2024-12-30] MEDS: Melatonin 3 MG TABLET 6 MG PO (20:56)
[2024-12-30] MEDS: cefTRIAXone sodium 1 GM VIAL IVPUSH (20:58)
[2024-12-31 03:05] VITALS: BP 117/56; PULSE 86; RESP 16; TEMP 36.9; O2SAT 95
[2024-12-31] MEDS: guaiFEN/Codeine SF 200/20/10ML 10 ML LIQUID PO ×3 (04:22→20:00)
[2024-12-31 07:59] VITALS: BP 110/51; PULSE 82; RESP 18; TEMP 36.2; O2SAT 97
[2024-12-31] MEDS: 0.9 % Sodium Chloride Flush 3 ML SYRINGE IVFLUSH ×3 (08:25→19:44)
[2024-12-31] MEDS: guaiFENesin DM 600/30 1 TAB TAB.ER.12H PO ×2 (08:26→19:43)
[2024-12-31] MEDS: Benzonatate 100 MG CAPSULE PO ×3 (08:26→19:43)
[2024-12-31] MEDS: Enoxaparin Sodium 40 MG/0.4 ML SYRINGE SUBCUT (08:26)
--- NOTE | 2024-12-31 08:26 | HO.PM.IMPN ---
Subjective Subjective Date of Service: 12/31/24 Interval History: Improved Physical Exam Vital Signs: Vital Signs: Last Vital Signs Temp 97.2 F 12/31/24 07:59 Pulse 82 12/31/24 07:59 Resp 18 12/31/24 07:59 BP 110/51 L 12/31/24 07:59 Pulse Ox 97 12/31/24 07:59 O2 Del Method Room Air 12/31/24 07:59 BMI result Body Mass Index 24.0 General: AO X 3, no acute distress Resp: CTA bilateral, no accessory muscles used CVS: S1,S2,RRR GI: soft, non tender, non distended Neuro: motor grossly intact, alert Psych: appropriate affect, appropriate insight Objective Data Active Medications Acetaminophen (Acetaminophen 325 Mg Tablet) 650 mg PO Q6H PRN PRN Reason: Pain, Mild 1-3,fever,headache Benzonatate (Benzonatate 100 Mg Capsule) 100 mg PO TID [facility] Last Admin: 12/30/24 20:57 Dose: 100 mg Documented By: DANA Calcium Carbonate (Calcium Carbonate 750 Mg Tab.Chew) 750 mg PO Q4H PRN PRN Reason: Heartburn Ceftriaxone Sodium (Ceftriaxone Sodium 1 Gm Vial) 1 gm IVPUSH BEDTIME [facility] Last Admin: 12/30/24 20:58 Dose: 1 gm Documented By: DANA Enoxaparin Sodium (Enoxaparin Sodium 40 Mg/0.4 Ml Syringe) 40 mg SUBCUT DAILY [facility] Last Admin: 12/30/24 08:15 Dose: 40 mg Documented By: JORGE Guaifenesin/Codeine Phosphate (Guaifen/Codeine Sf 200/20/10ml 10 Ml Liquid) 10 ml PO Q6H PRN PRN Reason: Cough Last Admin: 12/31/24 04:22 Dose: 10 ml Documented By: DANA Guaifenesin/Dextromethorphan (Guaifenesin Dm 600/30 1 Tab Tab.Er.12h) 1 tab PO BID [facility] Last Admin: 12/30/24 20:56 Dose: 1 tab Documented By: DANA Azithromycin 500 mg/ Sodium (Chloride) 250 mls @ 125 mls/hr IV BEDTIME [facility] Last Infusion: 12/30/24 22:57 Dose: Infused Documented By: DANA Magnesium Hydroxide (Milk Of Magnesia 30 Ml Oral.Susp) 30 ml PO DAILY PRN PRN Reason: Constipation Melatonin (Melatonin 3 Mg Tablet) 6 mg PO BEDTIME PRN PRN Reason: Insomnia Last Admin: 12/30/24 20:56 Dose: 6 mg Documented By: DANA Ondansetron HCl (Ondansetron Hcl 4 Mg/2 Ml Vial) 4 mg IVPUSH Q8H PRN PRN Reason: Nausea and Vomiting Sodium Chloride (0.9 % Sodium Chloride Flush 3 Ml Syringe) 3 ml IVFLUSH QSHIFT [facility] Last Admin: 12/30/24 20:56 Dose: 3 ml Documented By: DANA Labs 12/30/24 04:28 12/30/24 04:28 Microbiology Microbiology Results: Microbiology 12/29/24 23:22 Blood Culture - Preliminary Blood - Venous Prelim: GPC Gram Stain only 12/29/24 23:12 Blood Culture - Preliminary Blood - Venous Prelim: GPC Gram Stain only Assessment and Plan (1) Sepsis: Status: Acute Plan 69F PMH hyperlipidemia presented with shortness of breath Sepsis secondary to pneumonia complicated by GPC bacteremia continue ceftriaxone azithromycin, follow up cultures DVT prophylaxis with Lovenox Full Code reason for continued hospitalization: awaiting cultures Quality Stroke Does the patient have a stroke diagnosis?: No VTE Prior VTE?: No VTE Risk Level:: Medical - moderate - high VTE Device Contraindication: Treatment Not Indicated VTE Drug Contraindication: N/A - Med Ordered
[2024-12-31 11:48] VITALS: BP 130/65; PULSE 74; RESP 18; TEMP 36.7; O2SAT 96
[2024-12-31 15:17] VITALS: BP 105/52; PULSE 84; RESP 18; TEMP 37.4; O2SAT 97
[2024-12-31 19:01] VITALS: BP 129/60; PULSE 81; RESP 18; TEMP 36.8; O2SAT 94
[2024-12-31] MEDS: Azithromycin 500 MG in 0.9 % Sodium Chloride 250 ML 125 MG IV (19:43)
[2024-12-31] MEDS: cefTRIAXone sodium 1 GM VIAL IVPUSH (19:43)
[2024-12-31] MEDS: Melatonin 3 MG TABLET 6 MG PO (21:15)
[2024-12-31 23:41] VITALS: BP 104/59; PULSE 69; RESP 16; TEMP 36.3; O2SAT 93
[2025-01-01 03:35] VITALS: BP 116/60; PULSE 75; RESP 16; TEMP 36.2; O2SAT 93
[2025-01-01 06:23] LABS: Anion Gap 12 (12-20); Blood Urea Nitrogen 6 mg/dL (9-16); Calcium 8.8 mg/dL (8.4-10.2); Carbon Dioxide 25 mmol/L (22-29); Chloride 107 mmol/L (96-108); Creatinine Clr Calc Pharmacy 60.2; Estimated Glomerular Filt Rate > 60; Glucose Random 91 mg/dL (60-115); Hematocrit 34.8 % (37.0-47.0); Hemoglobin 11.3 g/dl (12.0-16.0); Mean Corpuscular HGB Conc 32.5 g/dl (31.0-35.0); Mean Corpuscular Hemoglobin 28.9 pg (27.0-33.0); Mean Platelet Volume 8.6 fL (9.4-12.3); Platelet Count 358 X10*3/uL (160-400); Potassium 3.9 mmol/L (3.3-5.1); Red Blood Count 3.91 X10*6/uL (4.20-5.50); Red Cell Distribution Width 13.2 % (11.0-16.0); Sodium 140 mmol/L (135-145); White Blood Count 7.9 X10*3/uL (4.8-10.8)
[2025-01-01] MEDS: Enoxaparin Sodium 40 MG/0.4 ML SYRINGE SUBCUT (07:44)
[2025-01-01] MEDS: 0.9 % Sodium Chloride Flush 3 ML SYRINGE IVFLUSH ×3 (07:44→20:15)
[2025-01-01] MEDS: guaiFENesin DM 600/30 1 TAB TAB.ER.12H PO ×2 (07:44→20:15)
[2025-01-01] MEDS: guaiFEN/Codeine SF 200/20/10ML 10 ML LIQUID PO ×2 (07:44→23:40)
[2025-01-01] MEDS: Benzonatate 100 MG CAPSULE PO ×3 (07:44→20:15)
[2025-01-01 07:51] VITALS: BP 138/62; PULSE 80; RESP 17; TEMP 36.3; O2SAT 96
--- NOTE | 2025-01-01 10:52 | P.PNIM_ITS ---
Subjective Subjective Date of Service: 01/01/25 Interval History: seen and evaluated this morning feels little better still coughing and dyspenic in short distances no other events Review of Systems Review of Systems: Yes all other systems are reviewed and are negative Physical Exam 2 Vital Signs: Vital Signs: Last Vital Signs Temp 97.4 F 01/01/25 07:51 Pulse 80 01/01/25 07:51 Resp 17 01/01/25 07:51 BP 138/62 01/01/25 07:51 Pulse Ox 96 01/01/25 07:51 O2 Del Method Room Air 01/01/25 07:51 BMI result Body Mass Index 24.0 Const: Other: Constitutional : Awake, interactive, not in distress Neck : Normal inspection, Supple Cardiovascular : RRR, no JVP, no lower extremity edema Respiratory : decreased bilateral air entry at basis with bilateral crackles, no wheezes Gastrointestinal: soft, lax, Normal bowel sounds, Non tender Skin : Warm, Dry Neurological : Alert & oriented x3, No focal deficit Objective Data Active Medications Acetaminophen (Acetaminophen 325 Mg Tablet) 650 mg PO Q6H PRN PRN Reason: Pain, Mild 1-3,fever,headache Benzonatate (Benzonatate 100 Mg Capsule) 100 mg PO TID [facility] Last Admin: 01/01/25 07:44 Dose: 100 mg Documented By: JONES Calcium Carbonate (Calcium Carbonate 750 Mg Tab.Chew) 750 mg PO Q4H PRN PRN Reason: Heartburn Ceftriaxone Sodium (Ceftriaxone Sodium 1 Gm Vial) 1 gm IVPUSH BEDTIME [facility] Last Admin: 12/31/24 19:43 Dose: 1 gm Documented By: DANA Enoxaparin Sodium (Enoxaparin Sodium 40 Mg/0.4 Ml Syringe) 40 mg SUBCUT DAILY [facility] Last Admin: 01/01/25 07:44 Dose: 40 mg Documented By: JONES Guaifenesin/Codeine Phosphate (Guaifen/Codeine Sf 200/20/10ml 10 Ml Liquid) 10 ml PO Q6H PRN PRN Reason: Cough Last Admin: 01/01/25 07:44 Dose: 10 ml Documented By: JONES Guaifenesin/Dextromethorphan (Guaifenesin Dm 600/30 1 Tab Tab.Er.12h) 1 tab PO BID [facility] Last Admin: 01/01/25 07:44 Dose: 1 tab Documented By: JONES Azithromycin 500 mg/ Sodium (Chloride) 250 mls @ 125 mls/hr IV BEDTIME [facility] Last Infusion: 12/31/24 21:47 Dose: Infused Documented By: DANA Magnesium Hydroxide (Milk Of Magnesia 30 Ml Oral.Susp) 30 ml PO DAILY PRN PRN Reason: Constipation Melatonin (Melatonin 3 Mg Tablet) 6 mg PO BEDTIME PRN PRN Reason: Insomnia Last Admin: 12/31/24 21:15 Dose: 6 mg Documented By: DANA Ondansetron HCl (Ondansetron Hcl 4 Mg/2 Ml Vial) 4 mg IVPUSH Q8H PRN PRN Reason: Nausea and Vomiting Sodium Chloride (0.9 % Sodium Chloride Flush 3 Ml Syringe) 3 ml IVFLUSH QSHIFT [facility] Last Admin: 01/01/25 07:44 Dose: 3 ml Documented By: JONES Labs 01/01/25 05:30 01/01/25 05:30 Labs: Laboratory Results - last 24 hr 01/01/25 05:30 MCV 89.0 MCH 28.9 MCHC 32.5 RDW 13.2 Plt Count 358 MPV 8.6 L Absolute Nucleated RBC 0.000 Nucleated RBC % (auto) 0.0 Anion Gap 12 Estim Creat Clear Calc 60.2 Estimated GFR > 60 Random Glucose 91 Calcium 8.8 Microbiology Microbiology Results: Microbiology 12/29/24 23:22 Blood Culture - Final Blood - Venous Streptococcus pneumoniae 12/29/24 23:12 Blood Culture - Final Blood - Venous Streptococcus pneumoniae Assessment and Plan (1) Sepsis: Status: Acute (2) Multifocal pneumonia: Status: Acute Plan A 69 years old lady with PMH of HLD who presented to the hospital with shortness of breath, cough and fever for the last 2-3 days. Sepsis 2/2 post viral multifocal pneumonia complicated with Strep pneumo bacteremia pending repeat negative blood cultures Continue Azithromycin and Ceftriaxone Cough medicine Transaminitis improved HLD continue Statin DVT PPx Lovenox The patient will need overnight hospital stay for treatment of sepsis with IV antibiotics pending repeat blood cultures Quality Stroke Does the patient have a stroke diagnosis?: No VTE Prior VTE?: No VTE Risk Level:: Medical - moderate - high VTE Device Contraindication: Treatment Not Indicated VTE Drug Contraindication: N/A - Med Ordered
[2025-01-01 12:00] VITALS: BP 121/69; PULSE 72; RESP 18; TEMP 36.4; O2SAT 97
[2025-01-01] MEDS: Acyclovir 5 % Oint 15 GM TUBE TOPICAL ×4 (12:50→20:42)
[2025-01-01] MEDS: diphenhydrAMINE HCl 2 % Cream 28 GM TUBE 1 APPL TOPICAL (12:50)
[2025-01-01 15:00] VITALS: BP 137/65; PULSE 74; RESP 18; TEMP 36.5; O2SAT 94
--- NOTE | 2025-01-01 15:37 | MHC.CM.PN ---
per rounds pt will dc dc plan remains home
[2025-01-01 19:24] VITALS: BP 137/65; PULSE 78; RESP 18; TEMP 36.7; O2SAT 96
[2025-01-01] MEDS: cefTRIAXone sodium 1 GM VIAL IVPUSH (20:15)
[2025-01-01] MEDS: Azithromycin 500 MG in 0.9 % Sodium Chloride 250 ML 125 MG IV (20:18)
[2025-01-01 23:31] VITALS: BP 131/70; PULSE 76; RESP 18; TEMP 36.6; O2SAT 98
[2025-01-01] MEDS: Melatonin 3 MG TABLET 6 MG PO (23:42)
[2025-01-02 04:00] VITALS: BP 116/62; PULSE 72; RESP 18; TEMP 36.3; O2SAT 93
[2025-01-02] MEDS: Acyclovir 5 % Oint 15 GM TUBE TOPICAL ×2 (06:00→09:42)
[2025-01-02 07:30] VITALS: BP 135/60; PULSE 66; RESP 16; TEMP 36.6; O2SAT 97
[2025-01-02] MEDS: Benzonatate 100 MG CAPSULE PO (08:44)
[2025-01-02] MEDS: guaiFENesin DM 600/30 1 TAB TAB.ER.12H PO (08:44)
--- NOTE | 2025-01-02 11:36 | PM.DS ---
DS: Providers Provider Date of Service: 01/02/25 Date of admission: 12/30/24 02:02 Date of discharge: 01/02/25 Primary care physician: Karla Jennings MD DS: Diagnosis Discharge Diagnosis (1) Sepsis: Status: Acute (2) Multifocal pneumonia: Status: Acute (3) Streptococcal bacteremia: Status: Acute DS: Summary Hospital Course Hospital Course: Admission note HPI A 69 years old lady with PMH of HLD who presented to the hospital with shortness of breath, cough and fever for the last 2-3 days. The patient reports being sick for almost 10 days now with upper respiratory infection that did not resolved and for the last 2 days she started spiking fever and feels weak with no energy. No chest pain, palpitations, nausea, vomiting, diarrhea or urinary symptoms. In ED found to have low BP, elevated WBCs of 18k with CT scan showing multifocal pneumonia. Admitted for further work up and treatment. Hospital course The patient was treated for Sepsis secondary to multifocal pneumonia complicated with Strep pneumo bacteremia treated with IV Azithromycin and Ceftriaxone as repeated blood cultures remained negative and the patient had significant improvement in her symptoms with no fever or chills. tolerating ambulating on room air with no dyspnea. leukocytosis resolved. To finish total of 2 weeks of antibiotics on Augmentin for 10 more days. Discharge plan Continue Antibiotics for 10 more days cough medicine as needed Time Attestation Discharge Coordination Time (in mins): 38 Quality: Safe Use of Opioids Does Pt have an Active Cancer Diagnosis on the Problem List?: No Quality: Stroke Does the patient have a stroke diagnosis?: No Physical Exam Vital Signs: Vital Signs: Last Vital Signs Temp 97.8 F 01/02/25 07:30 Pulse 66 01/02/25 07:30 Resp 16 01/02/25 07:30 BP 135/60 01/02/25 07:30 Pulse Ox 97 01/02/25 07:30 O2 Del Method Room Air 01/02/25 07:30 BMI result Body Mass Index 24.0 Const: Other: Constitutional : Awake, interactive, not in distress Neck : Normal inspection, Supple Cardiovascular : RRR, no JVP, no lower extremity edema Respiratory : good bilateral air entry, no crackles, no wheezes Gastrointestinal: soft, lax, Normal bowel sounds, Non tender Skin : Warm, Dry Neurological : Alert & oriented x3, No focal deficit DS: Data Data Completed and Pending Labs on day of discharge: Preliminary micro results at discharge 01/01/25 08:05 Blood Culture - Preliminary Blood - Venous No growth after 24 hours. 01/01/25 08:05 Blood Culture - Preliminary Blood - Venous No growth after 24 hours. Imaging Chest x-ray: Radiologist's impression: CT chest IMPRESSION: Multifocal lung opacities suggesting pneumonia. This document has been electronically signed by: Sole Arenas MD on 12/30/2024 00:18:45 Dictated By: Sole Arenas MD Discharge Plan Discharge Anticipated Discharge Date/Time: 01/02/25 11:32 Patient Disposition: Home, Self-Care Discharge Diagnosis: Pneumonia with bacteremia Referrals: Karla Jennings MD [Primary Care Provider] - 1 Week Discharge Medications: New amoxicillin-pot clavulanate 875-125 mg tablet 1 tab PO BID Qty: 20 0RF Continued benzonatate 100 mg capsule 100 mg PO TID Discharge Orders: Discharge Order (Routine); Ordered 01/02/25 Ordered By: Hafsa Harrington Diet: Advance to usual diet Activity on Discharge: As tolerated Stand Alone Forms: Patient Portal Discharge page, Work/School Release Print Language: Nigerien Care Plan Goals: Continue Antibiotics for 10 more days cough medicine as needed Health Concerns: Pneumonia with Streptococcus pneumonae bacteremia Plan of Treatment: Augmentin for 10 more days Assessment: as above Patient Instructions: Amoxicillin/Clavulanate Potassium (By mouth), Community Acquired Pneumonia (DC)
[2025-01-02 11:43] VITALS: BP 143/62; PULSE 73; RESP 18; TEMP 36.6; O2SAT 95
--- NOTE | 2025-01-02 11:44 | MHC.CM.PN ---
PT WILL DC HOME TODAY WITH NO SERVICES VIA PRIVATE TRANSPORT
== END 2025-01-02 12:39 | disposition home or self-care (01) | DRG 720 ==
LOC: HO.ED 12-30 00:23 → HO.EDOVER 12-30 02:10 → HO.S3 12-30 08:36
PROVIDERS: Internal Medicine; Physician Assistant; Admitting Provider Student in an Organized Health Care Education/Training Program; Emergency Provider Emergency Medicine; PCP Internal Medicine; Visit Provider Student in an Organized Health Care Education/Training Program
DX: A41.9 Sepsis, unspecified organism (principal); J18.9 Pneumonia, unspecified organism; B95.3 Streptococcus pneumoniae as the cause of diseases classified elsewhere; E78.5 Hyperlipidemia, unspecified; Z20.822 Contact with and (suspected) exposure to COVID-19; Z79.899 Other long term (current) drug therapy
CPT/HCPCS: 0241U; 36415; 71045; 71250; 80048; 80076; 81001; 83605; 83690; 83735; 84145; 84484; 85025; 85027; 86140; 87040; 87077; 87205; 87651; 93005; 99285; J0131; J0456; J0696; J1650; J7120

== ENCOUNTER → 2024-12-29 18:58 | Outpatient (BNV) | payer OTHER, SELFPAY | PROVIDERS: Admitting Provider Student in an Organized Health Care Education/Training Program; Emergency Provider Emergency Medicine; PCP Internal Medicine; Visit Provider Internal Medicine Cardiovascular Disease | DX: R00.0 Tachycardia, unspecified (principal) | CPT/HCPCS: 93010 ==

== ENCOUNTER → 2024-12-29 19:42 | Outpatient (BNV) | payer OTHER, SELFPAY | PROVIDERS: PCP Internal Medicine; Visit Provider Radiology Diagnostic Radiology | DX: R05.9 Cough, unspecified (principal); R09.89 Other specified symptoms and signs involving the circulatory and respiratory systems; R50.9 Fever, unspecified | CPT/HCPCS: 71045; 71250 ==

== ENCOUNTER → 2024-12-30 02:02 | Outpatient (BNV) | payer OTHER, SELFPAY | PROVIDERS: Admitting Provider Student in an Organized Health Care Education/Training Program; Emergency Provider Emergency Medicine; PCP Internal Medicine; Visit Provider Student in an Organized Health Care Education/Training Program | DX: A41.9 Sepsis, unspecified organism (principal); J18.9 Pneumonia, unspecified organism | CPT/HCPCS: 99222; 99232; 99239; 99499 ==

== ENCOUNTER 2025-02-06 14:52 | Outpatient (AMB) | payer OTHER, SELFPAY ==
[2025-02-06 14:56] VITALS: BP 127/62; PULSE 88; O2SAT 98; BMI 23.3
--- NOTE | 2025-02-06 14:56 | MHC.OFFVIS ---
Vital Signs 02/06/25 14:56 Height 4 ft 10 in Weight 111 lb 5.335 oz BMI 23.3 BP 127/62 Blood Pressure Location Rt brachial Position Sitting Pulse 88 Pulse Source Doppler Pulse Oximetry (%) 98 Oxygen Delivery Method Room Air Intake Visit Reasons: Shortness of breath Allergies iron [IRON] Allergy (Intermediate, Verified 02/06/25 15:01) STOMACH UPSET ondansetron [From Zofran] Allergy (Verified 02/06/25 15:01) Rash HPI HPI Shortness of breath: Details: 69-year-old, nonsmoker, referred for evaluation of dyspnea on exertion ongoing for months that worsened after recent hospitalization for what appears to be community-acquired pneumonia. patient states that she can walk sometimes up to 2 miles and experience dyspnea on exertion only then, however she does feel it significantly after climbing up ten steps on stairs. Patient denies prior personal or family history of lung disease. She does have mild seasonal allergies. Patient does have a dog as a pet. She also complains of progressive feeling like she has difficulty swallowing and/ or food has difficulty going down her esophagus. [facility] Medical History Hyperlipidemia Social History Household Members: [facility] Do you presently have visiting nurse or other home services: No Patient Tobacco Use Status: Never used Tobacco service: No Review of Systems Const Denies daytime sleepiness, Denies excessive sweating, Denies fatigue, Denies fever(s), Denies lethargy, Denies malaise, Denies night sweats, Denies snoring and Denies weight loss Eyes Denies blurry vision and Denies itchy eyes ENT Reports dysphagia, Denies nasal congestion, Denies post nasal drip, Denies sinus pain, Denies sinus pressure and Denies other ( Thrush) Card Denies chest pain, Denies pedal edema, Denies dyspnea, Reports dyspnea on exertion, Denies orthopnea and Denies paroxysmal nocturnal dyspnea Resp Denies cough, Denies hemoptysis, Denies excessive phlegm production, Denies dyspnea, Reports dyspnea on exertion, Denies snoring and Denies wheezing GI Denies abdominal pain, Reports dysphagia and Denies heartburn Musc Denies myalgias, Denies arthralgias and Denies joint swelling Skin/Breast Denies rash Neuro Denies memory loss and Denies seizure-like activity Psych Denies abnormal sleep pattern, Denies anxiety and Denies memory loss Endo Denies excessive sweating, Denies fatigue and Denies heat intolerance Kurt/Lymph Denies easy bruising Aller/Immun Denies itchy eyes, Denies seasonal rhinorrhea and Denies wheezing Physical Exam Vital Signs: Last Vital Signs Pulse 88 02/06/25 14:56 BP 127/62 02/06/25 14:56 Pulse Ox 98 02/06/25 14:56 Oxygen Delivery Method Room Air 02/06/25 14:56 BMI result Body Mass Index 23.3 Const General: no acute distress and alert Nutritional Appearance: not obese Orientation/consciousness: Other orientation findings ( oriented) HEENT Head: Yes atraumatic Eyes General: appearance normal, both eyes and all related structures Sclerae: sclerae normal EOM: EOMs intact bilaterally Neck Neck: Yes supple Lymphatic: no lymphadenopathy noted Resp Effort & Inspection: normal respiratory effort and no use of accessory muscles Auscultation: clear to auscultation bilaterally Cardio Rate: regular rate Rhythm: regular rhythm Heart sounds: no gallops, no murmurs and no rubs Skin General skin exam: other ( warm) Extrem General: No clubbing, No cyanosis and No edema Assessment & Plan Assessment & Plan (1) Abnormal CT scan, chest: Code(s): R93.89 - Abnormal findings on diagnostic imaging of other specified body structures Category: Medical Plan: With recent pneumonia and worsening dyspnea thereafter, will repeat CT chest for further evaluation. (2) Difficulty swallowing: Code(s): R13.10 - Dysphagia, unspecified Category: Medical Plan: Will obtain modified barium swallow. (3) Dyspnea on exertion: Code(s): R06.09 - Other forms of dyspnea Category: Medical Plan: Unclear etiology, may have pulmonary, cardiac, or hematologic component. To evaluate pulmonary component will obtain full PFT. Orders: Orders CT chest wo IV con Today R93.89 - Abnormal findings on diagnostic imaging of other specified body structures PFT pulmonary function test Today R06.09 - Other forms of dyspnea FL Modified Barium Swallow Today R13.10 - Dysphagia, unspecified Medications: Discontinued amoxicillin-pot clavulanate 875-125 mg Discontinued Reason: Patient Completed Course 1 tab PO BID 20 tabs 0RF Coding Level of Care Code New Pt Level 4 (06975) Diagnoses Abnormal CT scan, chest R93.89 Difficulty swallowing R13.10 Dyspnea on exertion R06.09
--- OUTSIDE RECORDS SUMMARY | 2025-02-06 18:39 | XMS_ITS ---
Author Organization [facility] Address [address] [place] [address] Care Team Providers Care Post Tensioning Ironworker Helper Name Role Phone Karla Jennings Primary Care Provider Marielena Herrera Jr, Crescencio Crum [phone] REASON FOR VISIT new pt appt Encounters Encounter Location Date Provider Diagnosis [facility] [address] [place] [address] 12/30/2024 Crescencio Gonzales Jr Plan Of Treatment Next Appt Details Provider Name:Crescencio dwyer Jr, 04/23/2025 09:40:00 AM, [address], [address], [place], [address], Progress Notes * CELIA GALEAS TDOB:[birth year] (69 yo F)Acc No.[id number]:12/30/2024 Patient:?CELIA GALEAS :1955???Age:69 Y???Sex:Female Address:[address] [place] [address] [address] , [place], [address] * true * Date:? Generated for Nikunj robert/Gwendolyn/eTransmitting on:?02/06/2025 06:39 PM EDT
--- OUTSIDE RECORDS SUMMARY | 2025-02-06 18:39 | XMS_ITS | Clinical Summary ---
Author Organization [facility] ity Address [address] [place] [address] Care Team Providers Care Shredding Machine Operator Name Role Phone Unavailable Primary Care Provider Unavailabl e Social History Tobacco Use Types Packs/Day Years Used Date Smoking Tobacco: Never Assessed Comments Unknown Sex and Gender Information Value Date Recorded Sex Assigned at Not on file Legal Sex Female 9:03 PM EST Gender Identity Not on file Sexual Orientation Not on file Plan of Treatment Health Maintenance Due Date Last Done Comments DTaP,Tdap,and Td Vaccines (1 - Tdap) 1976 Pneumococcal Vaccine: 50+ Years (1 of 1 - PCV) 2007 Zoster Vaccines (1 of 2) 2007 Breast Cancer Screening 02/18/2023 02/19/20 21, 09/11/2019, [...] patient's age to complete this topic Meningococcal B Vacine Aged Out No lo nger eligible based on patient's age to complete this topic RSV Immunization Patients Under 20 months Aged Out No longer eligible b ased on patient's age to complete this topic Varicella Vaccines Aged Out No longer eligible based on patient's age to complete this topic Procedures Procedure Name Priority Date/Time Associated Diagnosis Comments [facility] SCREENING DIGITAL Routine 02/18/2021 4:48 PM EDT Encounter for screening mammogram for malignant neoplasm of breast from Last 3 Months or Most Recently Relevant to Health Maintenance Results * [facility] SCREENING DIGITAL (02/18/2021 4:48 PM EDT) Anatomical Region Laterality Modality Mammography 02/18/2021 3:13 PM EDT Narrative 02/18/2021 4:[address] [facility] Diagnostic Imaging Department [address] [place] [address] Patient: ??NENA GALEAS ?/Age/Sex: 1955 - 65 - F Unit#: ??[id number] ? Location/Status: ??SPDIMAM/REG CLI ? Mnemonic/Ordering Site: ??[facility]SC/[facility] Ordering Physician: ??KARLA GUERRERO MD [facility] Screening Digital - 02/18/21 - 3200 INDICATION: SCREENING COMPARISON: [facility] mammograms dating back to ?? 08/17/2015 TECHNIQUE: CC and MLO views of the breasts were obtained, using full field digital mammography with 3D tomosynthesis views in the MLO projection. Computer aided detection with the [employer] 7.2-H was employed. FINDINGS: The breasts contain [...] date for the next mammogram. (G0202 / 43547) , ??05377 Dictating Physician: ??GARY MANUEL MD Electronically Signed by: ??GARY MANUEL MD Dic Date/Time: ??02/18/211645 Sign date/Time: ??02/18/211647 Procedure Note Gary Manuel MD - 11/15/2022 [facility] Diagnostic Imaging Department [address] [place] [address] Patient: NENA GALEAS /Age/Sex: 1955 - 65 - F Unit#: [id number] Location/Status: [facility] Mnemonic/Ordering Site: [facility] Ordering Physician: KARLA GUERRERO MD [place] Screening Digital - 02/18/21 - 5614 INDICATION: SCREENING COMPARISON: [facility] mammograms dating back to 08/17/2015 TECHNIQUE: CC and MLO views of the breasts were obtained, using full field digital mammography with 3D tomosynthesis views in the MLO projection. Computer aided detection with the [employer] 7.2-H was employed. FINDINGS: The breasts contain [...] a target date for the next mammogram. G0627 / [id number]) , [id number] Dictating Physician: GARY MANUEL MD Electronically Signed by: GARY MANUEL MD Dic Date/Time: 02/18/21 1640 Sign date/Time: 02/18/21 1645 us Karla Guerrero MD IMG BI PROCEDURES Final Resul t from Last 3 Months or Most Recently Relevant to Health Maintenance
--- OUTSIDE RECORDS SUMMARY | 2025-02-06 18:39 | XMS_ITS | Patient Health Record ---
Author Organization [facility] Address [address] [place] [address] Care Team Providers Care Shuttle Driver Name Role Phone Karla Jennings Primary Care Provider Marielena Herrera Jr, Crescencio Crum Reason For Referral No Information Encounters Encounter Location Date Provider Diagnosis [facility] [address] [place] [address] 12/30/2024 Crescencio Gonzales Jr Plan Of Treatment Next Appt Details Provider Name:Crescencio dwyer Jr, 04/23/2025 09:40:00 AM, [address], [address], [place], [address], Insurance Providers Payer Name Payer Address Payer Phone Subscriber Number Group Number Insured Name Patient Relationship to Insured Coverage Start Date Coverage End Date [employer] [address] [address] [place] [address] [id number] CELIA SIERRA Self - patient is the insured
--- OUTSIDE RECORDS SUMMARY | 2025-02-06 18:39 | XMS_ITS ---
Author Organization [facility] Address [address] [place] [address] Care Team Providers Care Upper And Bottom Lacer Hand Name Role Phone Karla Jennings Primary Care Provider Marielena Herrera Jr, Crescencio Crum [phone] REASON FOR VISIT Patient presents today for a colon screening Encounters Encounter Location Date Provider Diagnosis [facility] [address] [place] [address] 01/01/2025 Crescencio Gonzales Jr Plan Of Treatment Next Appt Details Provider Name:Crescencio dwyer Jr, 04/23/2025 09:40:00 AM, [address] [place] [address], [address], [place], [address], Progress Notes * LANREYVESCELIA ANTONIO TDOB:[birth year] (69 yo F)Acc No.[id number]:01/01/2025 Progress Notes Patient:?CELIA GALEAS Provider:?Crescencio Gonzales MD :1955???Age:69 Y???Sex:Female D ate:01/01/2025 Address:[address] [place] [address] , [facility] Pcp:Karla Jennings Subjective: * Chief Complaints: * ???1. Patient presents today for a colon screening. * Medical History:? Objective: * Vitals:? Assessment: Plan: * Treatment: * * The named appointment provid er may or may not be the originator of this progress note, and it is not deemed complete until electronically signed by the appointment provider. Sign off status: Pending * Provider:?Crescencio Gonzales MD Date:?0 01/01/2025 Generated for Nikunj robert/Gwendolyn/Monaitting on:?02/06/2025 06:39 PM EDT
== END 2025-02-06 15:16 | disposition home or self-care (01) ==
LOC: HO.HPS 14:53
PROVIDERS: PCP Internal Medicine; Referring Provider Internal Medicine; Visit Provider Internal Medicine Pulmonary Disease
DX: R93.89 Abnormal findings on diagnostic imaging of other specified body structures (principal); R13.10 Dysphagia, unspecified; R06.09 Other forms of dyspnea
CPT/HCPCS: 99204

== ENCOUNTER → 2025-02-12 14:00 | Outpatient (BNV) | payer OTHER, SELFPAY | PROVIDERS: PCP Internal Medicine; Visit Provider Internal Medicine | DX: R92.8 Other abnormal and inconclusive findings on diagnostic imaging of breast (principal) | CPT/HCPCS: 76642; 77061; 77065 ==

== ENCOUNTER 2025-02-12 14:07 | Outpatient (REF) | payer OTHER, SELFPAY ==
--- NOTE | ~2025-02-12 | US_ITS ---
EXAMINATION: MM DIAGNOSTIC DIGITAL BREAST TOMOSYNTHESIS, LEFT Limited left breast ultrasound. CLINICAL INFORMATION: Call back from screening for asymmetry in the lateral left breast posterior depth on CC view. COMPARISON: Mammography: Prior's in PACS. TECHNIQUE: Digital breast tomosynthesis is performed in both the craniocaudal and mediolateral oblique views along with computer-aided detection (CAD). Synthesized 2D images are generated from the tomosynthesis. FINDINGS: There are scattered areas of fibroglandular density (ACR BI-RADS breast composition Category b). Asymmetry in the lateral left breast posterior depth persist on additional imaging projections. No suspicious calcifications or other abnormal findings. Targeted color Doppler ultrasound scanning in the lateral breast from 1-5 o'clock demonstrates a hypoechoic oval circumference solid mass versus complicated cyst at 2:00 4 cm from the nipple measuring 3 x 3 x 4 mm which correlates with the asymmetry on mammography. There is no internal vascular flow. US/US breast LT limited mamm only IMPRESSION: Hypoechoic oval solid mass versus complicated cyst at 2:00 4 cm from nipple which correlates with the asymmetry on mammography CC view. Recommend 6 month follow-up ultrasound for further evaluation of stability. ASSESSMENT: BI-RADS BI-RADS 3 - Probably benign finding(s) - 6 month follow-up suggested RECOMMENDATION: 6 Month F/U Results were provided to the patient at time of visit by the technologist. This patient's information was entered into a reminder system with a target due date for their next mammogram. Electronically signed by: Tanya Roque DO 02/12/2025 02:47 PM EDT
== END 2025-02-12 14:08 | disposition home or self-care (01) ==
LOC: HO.MAMMO 14:07
PROVIDERS: PCP Internal Medicine; Visit Provider Internal Medicine
DX: N64.89 Other specified disorders of breast (principal)
CPT/HCPCS: 76642; 77061; 77065

== ENCOUNTER 2025-03-06 07:16 | Outpatient (REF) | payer OTHER, SELFPAY ==
--- NOTE | ~2025-03-06 | CT_ITS ---
EXAMINATION: CT CHEST WITHOUT CONTRAST CLINICAL INFORMATION: Follow-up from prior CT exam for multifocal opacities. COMPARISON: CT chest to 225. TECHNIQUE: Multidetector volumetric CT imaging of the chest was done. Axial MIP volume rendering provided. Sagittal and coronal reformatted images were obtained. This CT examination was performed using dose optimization techniques as appropriate, variously including the following: *Automated exposure control *Adjustment of mA and/or kV according to patient size (this includes techniques or standardized protocols for targeted exams where dose is matched to indication/reason for exam; i.e. extremities or head) *Use of iterative reconstruction technique FINDINGS: LUNGS: -Previously seen multifocal pulmonary opacities have resolved. Findings are consistent with resolved pneumonia. Lungs are now clear aside from mild hypoventilatory changes and mild gravity dependent atelectasis. -There are no effusions. There is no pneumothorax. -There are no suspicious nodules. -Stable calcified granuloma in the left anterior costophrenic sulcus. -Mild thickening of the small airways in the lower lobes noted, suggesting bronchitis. -The central airways are patent. MEDIASTINUM: -Normal thyroid. -No adenopathy or mass. -Aorta demonstrates minimal calcified atheromatous plaque. It is normal in caliber and course. -Main pulmonary artery is normal in size. -There is a calcified lymph node in the left inferior hilum. -No esophageal abnormality. -Heart size is normal. There is no pericardial effusion. CORONARY ARTERY CALCIFICATION: None visualized on this study. AXILLA/CHEST WALL: No lymphadenopathy. UPPER ABDOMEN: Normal in appearance. No abnormalities. OSSEOUS STRUCTURES: No suspicious lytic or blastic bone lesion. CT/CT chest wo IV con IMPRESSION: 1. Resolution of previously seen multifocal opacities consistent with resolved pneumonia. 2. Mild thickening of the lower lobe small airways suggesting chronic bronchitis. 3. Additional ancillary findings as discussed. Electronically signed by: Elpidio Cortez MD 03/06/2025 09:28 AM EDT
--- OUTSIDE RECORDS SUMMARY | 2025-03-06 07:18 | XMS_ITS | Patient Health Record ---
Author Organization [facility] Address [address] [place] [address] Care Team Providers Care Armament Mechanic Name Role Phone Karla Jennings Primary Care Provider Marielena Herrera Jr, Crescencio Crum Reason For Referral No Information Encounters Encounter Location Date Provider Diagnosis [facility] [address] [place] [address] 12/30/2024 Crescencio Gonzales Jr Plan Of Treatment Next Appt Details Provider Name:Crescencio dwyer Jr, 04/23/2025 09:40:00 AM, [address], [address], [place], [address], Insurance Providers Payer Name Payer Address Payer Phone Subscriber Number Group Number Insured Name Patient Relationship to Insured Coverage Start Date Coverage End Date [employer] [address] [address] [place] [address] [id number] CELIA SIERRA Self - patient is the insured
--- OUTSIDE RECORDS SUMMARY | 2025-03-06 07:19 | XMS_ITS | Clinical Summary ---
Author Organization [facility] ity Address [address] [place] [address] Care Team Providers Care Strategic Manager Name Role Phone Unavailable Primary Care Provider [...] - 2023-2 5 season) 2024 Influenza Vaccine (Season Ended) 2025 RSV Immunization Adult Patients (1 - 1-dose 75+ series) 2032 HIB [...] age to complete this topic Meningococcal B Vaccine Aged Out No l onger eligible based on patient's age to complete this topic RSV Immunization Patients Under 20 months Aged Out No longer eligible b ased on patient's age to complete this topic Varicella Vaccines Aged Out No longer eligible based on patient's age to complete this topic Procedures Procedure Name Priority Date/Time Associated Diagnosis Comments [facility] SCREENING DIGITAL Routine 02/18/2021 4:48 PM EDT Encounter for screening mammogram for malignant neoplasm of breast from Last 3 Months or Most Recently Relevant to Health Maintenance Results * [facility] SCREENING DIGITAL (02/18/2021 4:48 PM EDT) Anatomical Region Laterality Modality Mammography 02/18/2021 3:13 PM EDT Narrative 02/18/2021 4:48 PM EDT [facility] Diagnostic Imaging Department [address] [place] [address] Patient: ??NENA GALEAS ?/Age/Sex: 1955 - 65 - F Unit#: ??[id number] ? Location/Status: ??SPDIMAM/REG CLI ? [facility] Ordering Physician: ??KARLA GUERRERO MD [facility] Screening Digital - 02/18/210 INDICATION: SCREENING COMPARISON: [facility] mammograms dating back to ?? 08/17/2015 TECHNIQUE: CC and MLO views of the breasts were obtained, using full field digital mammography with 3D tomosynthesis views in the MLO projection. Computer aided detection with the [employer] 7.2-H was employed. FINDINGS: The breasts contain [...] date for the next mammogram. (G0202 / 83590) , ??65850 Dictating Physician: ??GARY MANUEL MD Electronically Signed by: ??GARY MANUEL MD Dic Date/Time: ??02/18/211645 Sign date/Time: ??02/18/21 164 Procedure Note Gary aMnuel MD - 11/15/2022 [facility] Diagnostic Imaging Department [address] [place] [address] Patient: NENA GALEAS /Age/Sex: 1955 - 65 - F Unit#: [id number] Location/Status: [facility] Mnemonic/Ordering Site: [facility] Ordering Physician: KARLA GUERRERO MD [place] Screening Digital - 02/18/21 - 3292 INDICATION: SCREENING COMPARISON: [facility] mammograms dating back to 08/17/2015 TECHNIQUE: CC and MLO views of the breasts were obtained, using full field digital mammography with 3D tomosynthesis views in the MLO projection. Computer aided detection with the [employer] 7.2-H was employed. FINDINGS: The breasts contain [...] target date for the next mammogram. G0202 12563 , 57843 Dictating Physician: GARY MANUEL MD Electronically Signed by: GARY MANUEL MD Dic Date/Time: 02/18/21 1646 Sign date/Time: 02/18/21 1648 Karla Guerrero MD IMG BI PROCEDURES Final Resul t from Last 3 Months or Most Recently Relevant to Health Maintenance
--- OUTSIDE RECORDS SUMMARY | 2025-03-06 07:19 | XMS_ITS ---
Author Organization [facility] Address [address] [place] [address] Care Team Providers Care Tank Refinisher Name Role Phone Karla Jennings Primary Care Provider Marielena Herrera Jr, Crescencio Crum [phone] REASON FOR VISIT Patient presents today for a colon screening Encounters Encounter Location Date Provider Diagnosis [facility] [address] [place] [address] 01/01/2025 Crescencio Gonzales Jr Plan Of Treatment Next Appt Details Provider Name:Crescencio dwyer Jr, 04/23/2025 09:40:00 AM, [address] [place] [address], [address], [place], [address], Progress Notes * LANREGLADYSCELIA TDOB:[birth year] (69 yo F)Acc No.[id number]:01/01/2025 Progress Notes Patient:?CELIA GALEAS Provider:?Crescencio Gonzales MD :1955???Age:69 Y???Sex:Female D ate:01/01/2025 Address:[address] [place] [address] , [facility] Pcp:Karla Jennings Subjective: * Chief Complaints: * [...] Gonzales MD Date:?0 01/01/2025 Generated for Nikunj robert/Gwendolyn/Alma Rosasmitting on:?03/06/2025 07:18 AM EDT
--- OUTSIDE RECORDS SUMMARY | 2025-03-06 07:19 | XMS_ITS ---
Author Organization [facility] Address [address] [place] [address] Care Team Providers Care Breaker Up Name Role Phone Karla Jennings Primary Care Provider Marielena Herrera Jr, Crescencio Crum REASON FOR VISIT new pt appt Encounters Encounter Location Date Provider Diagnosis [facility] [address] [place] [address] 12/30/2024 Crescencio Gonzales Jr Plan Of Treatment Next Appt Details Provider Name:Crescencio dwyer Jr, 04/23/2025 09:40:00 AM, [address], [address], [place], [address], Progress Notes * CELIA GALEAS TDOB:[birth year] (69 yo F)Acc No.[id number]:12/30/2024 Patient:?CELIA GALEAS :1955???Age:69 Y???Sex:Female Address:[address] [place] [address] [address] , [place], [address] * true * Date:? Generated for Nikunj robert/Gwendolyn/eTransmitting on:?03/06/2025 07:18 AM EDT
== END 2025-03-06 07:17 | disposition home or self-care (01) ==
LOC: HO.CT 07:16
PROVIDERS: PCP Internal Medicine; Visit Provider Internal Medicine Pulmonary Disease
DX: R93.89 Abnormal findings on diagnostic imaging of other specified body structures (principal)
CPT/HCPCS: 71250

== ENCOUNTER → 2025-03-06 07:18 | Outpatient (BNV) | payer OTHER, SELFPAY | PROVIDERS: PCP Internal Medicine; Visit Provider Radiology Diagnostic Radiology | DX: R91.8 Other nonspecific abnormal finding of lung field (principal); J98.09 Other diseases of bronchus, not elsewhere classified | CPT/HCPCS: 71250 ==

== ENCOUNTER 2025-03-14 14:54 | Outpatient (REF) | payer OTHER, SELFPAY ==
--- NOTE | 2025-03-14 14:56 | PFT_ITS ---
Indication: Dyspnea Spirometry [FEV1 to FVC 81%; FEV1 1.61 L; FVC 1.99 L. No significant response to bronchodilators noted.] Lung Volumes [Total lung capacity 84% predicted; expiratory reserve volume 34% predicted] Diffusion Capacity [DLCO 72% predicted] Comparisons [none] Interpretation [No obstructive nor restrictive ventilatory defects identified. No significant response to bronchodilators noted. Low normal lung volumes. The patient does have a mild diffusion impairment. Should correct for hemoglobin. Clinical correlation warranted.] MTDD
--- OUTSIDE RECORDS SUMMARY | 2025-03-14 15:02 | XMS_ITS | Patient Health Record ---
Author Organization [facility] Address [address] [place] [address] Care Team Providers Care Day Porter Name Role Phone Karla Jennings Primary Care Provider Marielena Herrera Jr, Crescencio Crum Reason For Referral No Information Encounters Encounter Location Date Provider Diagnosis [facility] [address] [place] [address] 12/30/2024 Crescencio Gonzales Jr Plan Of Treatment Next Appt Details Provider Name:Crescencio dwyer Jr, 04/23/2025 09:40:00 AM, [address], [address], [place], [address], Insurance Providers Payer Name Payer Address Payer Phone Subscriber Number Group Number Insured Name Patient Relationship to Insured Coverage Start Date Coverage End Date [employer] [address] [address] [place] [address] [id number] CELIA SIERRA Self - patient is the insured
--- OUTSIDE RECORDS SUMMARY | 2025-03-14 15:02 | XMS_ITS ---
Author Organization [facility] Address [address] [place] [address] Care Team Providers Care Intermediate Card Tender Name Role Phone Karla Jennings Primary Care Provider Marielena Herrera Jr, Crescencio Crum [phone] REASON FOR VISIT Patient presents today for a colon screening Encounters Encounter Location Date Provider Diagnosis [facility] [address] [place] [address] 01/01/2025 Crescencio Gonzales Jr Plan Of Treatment Next Appt Details Provider Name:Crescencio dwyer Jr, 04/23/2025 09:40:00 AM, [address] [place] [address], [address], [place], [address], Progress Notes * LANREYVSECELIA ANTONIO TDOB:[birth year] (69 yo F)Acc No.[id number]:01/01/2025 Progress Notes Patient:?CELIA GALEAS Provider:?Crescencio Gonzales MD :1955???Age:69 Y???Sex:Female D ate:01/01/2025 Address:[address] [place] [address] , [facility] Pcp:Karla Jennings Subjective: * Chief Complaints: * [...] MD Date:?0 01/01/2025 Generated for Nikunj robert/Gwendolyn/Monaitting on:?03/14/2025 03:02 PM EDT
--- OUTSIDE RECORDS SUMMARY | 2025-03-14 15:02 | XMS_ITS | Clinical Summary ---
Author Organization [facility] it[facility] Address [address] [place] [address] Care Team Providers Care Hog Operator Name Role Phone Unavailable Primary Care [...] Procedure Name Priority Date/Time Associated Diagnosis Comments [facility] SCREENING DIGITAL Routine 02/18/2021 4:48 PM EDT Encounter for screening mammogram for malignant neoplasm of breast from Last 3 Months or Most Recently Relevant to Health Maintenance Results * [facility] SCREENING DIGITAL (02/18/2021 4:48 PM EDT) Anatomical Region Laterality Modality Mammography 02/18/2021 3:13 PM EDT Narrative 02/18/2021 4:48 PM EDT [facility] Diagnostic Imaging Department [address] [place] [address] Patient: ??NENA GALEAS ?/Age/Sex: 1955 - 65 - F Unit#: ??[id number] ? Location/Status: ??SPDIMAM/REG CLI ? Mn[facility] Ordering Physician: ??KARLA GUERRERO MD [facility] Screening Digital - 02/18/210 INDICATION: SCREENING COMPARISON: [facility] mammograms dating back to ?? 08/17/2015 TECHNIQUE: CC and MLO views of the breasts were obtained, using full field digital mammography with 3D tomosynthesis views in the MLO projection. Computer aided detection with the [employer] 7.2-H was employed. FINDINGS: The breasts contain [...] date for the next mammogram. (G0202 / 33752) , ??95215 Dictating Physician: ??GARY MANUEL MD Electronically Signed by: ??GARY MANUEL MD Dic Date/Time: ??02/18/211645 Sign date/Time: ??02/18/21 164 Procedure Note Gary Manuel MD - 11/15/2022 [facility] Diagnostic Imaging Department [address] [place] [address] Patient: NENA GALEAS /Age/Sex: 1955 - 65 - F Unit#: [id number] Location/Status: [facility] Mnemonic/Ordering Site: [facility] Ordering Physician: KARLA GUERRERO MD [facility] Screening Digital - 02/18/21 - 4027 INDICATION: SCREENING COMPARISON: [facility] mammograms dating back to 08/17/2015 TECHNIQUE: CC and MLO views of the breasts were obtained, using full field digital mammography with 3D tomosynthesis views in the MLO projection. Computer aided detection with the [employer] 7.2-H was employed. FINDINGS: The breasts contain [...] target date for the next mammogram. G0202 65403 , 68903 Dictating Physician: GARY MANUEL MD Electronically Signed by: GARY MANUEL MD Dic Date/Time: 02/18/21 1646 Sign date/Time: 02/18/21 1648 Karla Guerrero MD IMG BI PROCEDURES Final Resul t from Last 3 Months or Most Recently Relevant to Health Maintenance
--- OUTSIDE RECORDS SUMMARY | 2025-03-14 15:02 | XMS_ITS ---
Author Organization [facility] Address [address] [place] [address] Care Team Providers Care Electric Sealing Machine Operator Name Role Phone Karla Jennings Primary Care Provider Marielena Herrera Jr, Crescencio Crum REASON FOR VISIT new pt appt Encounters Encounter Location Date Provider Diagnosis [facility] [address] [place] [address] 12/30/2024 Crescencio Gonzales Jr Plan Of Treatment Next Appt Details Provider Name:Crescencio dwyer Jr, 04/23/2025 09:40:00 AM, [address], [address], [place], [address], Progress Notes * CELIA GALEAS TDOB:[birth year] (69 yo F)Acc No.[id number]:12/30/2024 Patient:?CELIA GALEAS :1955???Age:69 Y???Sex:Female Address:[address] [place] [address] [address] , [place], [address] * true * Date:? Generated for Nikunj robert/Gwendolyn/eTransmitting on:?03/14/2025 03:02 PM EDT
[2025-03-14 15:36] VITALS: PULSE 65; O2SAT 98
== END 2025-03-14 14:55 | disposition home or self-care (01) ==
LOC: HO.RESP 14:54
PROVIDERS: PCP Internal Medicine; Visit Provider Internal Medicine Pulmonary Disease
DX: R06.09 Other forms of dyspnea (principal)
CPT/HCPCS: 94010; 94640; 94727; 94729

== ENCOUNTER → 2025-03-14 14:56 | Outpatient (BNV) | payer OTHER, SELFPAY | PROVIDERS: PCP Internal Medicine; Visit Provider Hospitalist | DX: R06.09 Other forms of dyspnea (principal) | CPT/HCPCS: 94060; 94727; 94729 ==

== ENCOUNTER 2025-04-01 04:55 | Inpatient (IN) | payer OTHER, SELFPAY ==
[2025-04-01] VITALS (23 sets, daily range): BP systolic 84–130; BP diastolic 45–69; PULSE 86–117; RESP 16–20; TEMP 36.7–39; O2SAT 92–97; BMI 23.4
--- NOTE | ~2025-04-01 | FL_ITS ---
EXAMINATION: XR BARIUM SWALLOW CLINICAL INFORMATION: Dysphagia and concern for aspiration. COMPARISON: None available. TECHNIQUE: Routine modified barium swallow was performed under lateral fluoroscopy in presence of speech therapist and administration of various consistencies of food coated with barium. FINDINGS: On administration of thick barium, semisolid food coated barium and saltine crackers with barium there is normal mastication with normal propagation of food from the oral cavity through the pharynx into the esophagus. No obstruction, narrowing seen. No retention of food in the valleculae or piriform sinuses. No laryngeal penetration and aspiration. FLUOROSCOPY TIME: 1 minute 47 seconds DOSE AREA PRODUCT: 1311 uGy-m2 (microgray-meter squared) FL/FL Modified Barium Swallow IMPRESSION: Unremarkable modified barium swallow exam. Please correlate with speech therapy report. Electronically signed by: Inocente El MD 04/04/2025 01:55 PM EDT
--- NOTE | ~2025-04-01 | XR_ITS ---
EXAMINATION: XR CHEST 2 VIEWS HISTORY: fever, productive cough COMPARISON: Comparison is made with the prior examination dated 12/29/2024. FINDINGS: PA and lateral views of the chest are submitted. There is airspace opacity in the right middle lobe, consistent with pneumonia. The left lung is clear. There is no pleural effusion, pneumothorax, or pulmonary vascular congestion. The heart is normal in size. The aorta is tortuous. The bones are intact. XR/XR chest 2V IMPRESSION: Right middle lobe pneumonia. Follow-up is recommended to document resolution. Electronically signed by: Sanjay Ortiz MD 04/01/2025 08:42 AM EDT
[2025-04-01 05:39] LABS: IDNOW Serial# 6674DD1D; Strep A Nucleic Acid Negative (Negative)
[2025-04-01 06:07] LABS: Influenza A PCR NEGATIVE (Negative); Influenza B PCR NEGATIVE (Negative); Resp Syncy Virus RNA Qual PCR NEGATIVE (Negative); SARS COV2 PCR INHOUSE NEGATIVE (Negative)
--- OUTSIDE RECORDS SUMMARY | 2025-04-01 06:12 | XMS_ITS | Clinical Summary ---
Author Organization [facility] Address [address] [place] [address] Care Team Providers Care Candy Rolling Machine Operator Name Role Phone Unavailable Primary [...] Procedure Name Priority Date/Time Associated Diagnosis Comments [facility] SCREEN[facility]IG[facility] Routine 02/18/2021 4:48 PM EDT Encounter for screening mammogram for malignant neoplasm of breast from Last 3 Months or Most Recently Relevant to Health Maintenance Results * [facility] S[facility] (02/18/2021 4:48 PM EDT) Anatomical Region Laterality Modality Mammography 02/18/2021 3:13 PM EDT Narrative 02/18/2021 4:48 PM EDT [facility] Diagnostic Imaging Department [address] [place] [address] Patient: ??NENA GALEAS ?/Age/Sex: 1955 - 65 - F Unit#: ??[id number] ? Location/Status: ??SPDIMAM/REG CLI ? Mnemonic[facility]ing [facility] Order[facility] Physician: ??KARLA GUERRERO MD [facility] Screening Digital - 02/18/210 INDICATION: SCREENING COMPARISON: [facility] mammograms dating back to ?? 08/17/2015 TECHNIQUE: CC and MLO views of the breasts were obtained, using full field digital mammography with 3D tomosynthesis views in the MLO projection. Computer aided detection with the coComment 7.2-H was employed. FINDINGS: The breasts contain [...] date for the next mammogram. (G0202 / [id number]) , ??[id number] Dictating Physician: ??GARY MANUEL MD Electronically Signed by: ??GAYR MANUEL MD Dic Date/Time: ??02/18/211645 Sign date/Time: ??02/18/21 164 Procedure Note Gary Manuel MD - 11/15/2022 [facility] Diagnostic Imaging Department [address] [place] [address] Patient: NENA GALEAS /Age/Sex: 1955 - 65 - F Unit#: [id number] Location/Status: [facility] Mnemonic/Ordering Site: [facility] Ordering Physician: KARLA GUERRERO MD [place] Screening Digital - 02/18/21 - 3788 INDICATION: SCREENING COMPARISON: [facility] mammograms dating back to 08/17/2015 TECHNIQUE: CC and MLO views of the breasts were obtained, using full field digital mammography with 3D tomosynthesis views in the MLO projection. Computer aided detection with the coComment 7.2-H was employed. FINDINGS: The breasts contain [...] target date for the next mammogram. G0202 [id number] , [id number] Dictating Physician: GARY MANUEL MD Electronically Signed by: GARY MANUEL MD Dic Date/Time: 02/18/21 1646 Sign date/Time: 02/18/21 1648 Karla Guerrero MD IMG BI PROCEDURES Final Resul t from Last 3 Months or Most Recently Relevant to Health Maintenance
--- OUTSIDE RECORDS SUMMARY | 2025-04-01 06:12 | XMS_ITS ---
Author Organization [facility] Address [address] [place] [address] Care Team Providers Care Truck Mechanic Name Role Phone Karla Jennings Primary Care Provider Marielena Herrera Jr, Crescencio Crum [phone] REASON FOR VISIT Patient presents today for a colon screening Encounters Encounter Location Date Provider Diagnosis [facility] [address] [place] [address] 01/01/2025 Crescencio Gonzales Jr Plan Of Treatment Next Appt Details Provider Name:Crescencio dwyer Jr, 04/23/2025 09:40:00 AM, [address] [place] [address], [address], [place], [address], Progress Notes * LANREYVESCELIA ANTONIO TDOB:[birth year] (69 yo F)Acc No.[id number]:01/01/2025 Progress Notes Patient:?CELIA GALEAS Provider:?Crescencio Gonzales MD :1955???Age:69 Y???Sex:Female D ate:01/01/2025 Address:[address] [place] [address] , [facility] Pcp:Karla Jennings Subjective: * Chief Complaints: * [...] MD Date:?0 01/01/2025 Generated for Nikunj robert/Gwendolyn/Monaitting on:?04/01/2025 06:11 AM EDT
--- OUTSIDE RECORDS SUMMARY | 2025-04-01 06:12 | XMS_ITS ---
Author Organization [facility] Address [address] [place] [address] Care Team Providers Care Technician Helper Instrument Name Role Phone Karla Jennings Primary Care Provider Marielena Herrera Jr, Crescencio Crum REASON FOR VISIT new pt appt Encounters Encounter Location Date Provider Diagnosis [facility] [address] [place] [address] 12/30/2024 Crescencio Gonzales Jr Plan Of Treatment Next Appt Details Provider Name:Crescencio dwyer Jr, 04/23/2025 09:40:00 AM, [address], [address], [place], [address], Progress Notes * CELIA GALEAS TDOB:[birth year] (69 yo F)Acc No.[id number]:12/30/2024 Patient:?CELIA GALEAS :1955???Age:69 Y???Sex:Female Address:[address] [place] [address] [address] , [place], [address] * true * Date:? Generated for Nikunj robert/Gwendolyn/eTransmitting on:?04/01/2025 06:11 AM EDT
--- NOTE | 2025-04-01 08:27 | ED.URI ---
HPI - URI/Sore Throat General Chief Complaint: Upper Respiratory Symptoms Stated Complaint: gen med Time Seen by Provider: 04/01/25 07:57 Source: patient and family ([id number]) Mode of arrival: ambulatory Limitations: no limitations History of Present Illness ED Provider: LUPIS DELVALLE PA-C HPI Narrative: 69-year-old healthy female presents to the ED today for evaluation of hoarse voice, sore throat, and productive cough x3 days. Reports having chills early this morning while working on the [employer] unit. She took her temperature and it was noted to be 100.7. Reports taking Tylenol around this time. On arrival to ED this morning she is noted to be febrile to 101.6. Reports cough is productive of yellow/green sputum. States her brzfwxmg-vl-xox was ill with strep throat approximately 2 and half weeks ago. She also reports multiple sick contacts at work. Admits she was ill with sepsis/pneumonia in December of this year (3 months ago). States this feels similar. Denies headache, dizziness, vision changes, chest pain, sore throat, nausea, vomiting, diarrhea, abdominal pain. No recent travel or long car rides. Related Data Home Medications ?Medication ?Instructions ?Recorded ?Confirmed benzonatate 100 mg capsule 100 mg PO TID 12/30/24 12/30/24 Allergies Allergy/AdvReac Type Severity Reaction Status Date / Time iron [IRON] Allergy Intermediate STOMACH Verified 04/01/25 05:17 UPSET ondansetron [From Zofran] Allergy Rash Verified 04/01/25 05:17 Review of Systems Review of Systems: Yes all other systems are reviewed and are negative PMFSH Past Medical History Attestation statement: The following information was validated with the patient. Source: old records reviewed, obtained from family and nursing notes reviewed Medical History Hyperlipidemia Social History Social History Household Members: Family Housing: Condominium Do you presently have visiting nurse or other home services: No Patient Tobacco Use Status: Never used Tobacco Smoked in Last 30 Days: No Use of substances other than those prescribed or required for medical reasons: No Advance Directives: No Advance Directives Information Provided: Yes service: No Physical Exam Vital Signs: Vital Signs: Last Vital Signs Temp 98.2 F 04/01/25 10:12 Pulse 101 H 04/01/25 10:12 Resp 18 04/01/25 10:12 BP 118/53 L 04/01/25 10:12 Pulse Ox 94 04/01/25 10:12 O2 Del Method Room Air 04/01/25 10:12 BMI result Body Mass Index 23.4 Febrile, tachy General: ill appearing Skin: Warm, dry, intact. No rashes or lesions. Head: Normocephalic, atraumatic. EENT: Hearing is intact b/l. Conjunctiva clear. PERRLA. EOM intact. Moist mucous membranes.? Neck: Supple without LAD Cardiac: Chest wall symmetric. RRR Lungs: Normal respiratory effort without accessory muscle use. CTA bilaterally Ext: Upper and lower extremities atraumatic, without tenderness, deformity, swelling or erythema. no pitting edema, no calf tenderness b/l. Neuro: AOx3. Normal speech. Ambulating with steady gait. Course Course Course Narrative: 831 -- negative COVID, flu, RSV, strep throat. Temp improved to 100.2. Chest x-ray pending. Will continue to monitor. 919 -- chest x-ray showing opacity to right middle lobe consistent with pneumonia. No effusion, pneumothorax. Left lung clear. > will repeat vitals, check basic labs, lactate, blood cultures. Azithromycin and ceftriaxone ordered for coverage 1044 -- Received critical lactic of 3.2. Patient meets SIRS criteria for sepsis at this time. IVF ordered. 1117 -- delay in obtaining CMP due to hemolyzation. Chemistry without acute electrolyte abnormality requiring intervention. No JUAN PABLO. Random glucose 163. Liver function around baseline. > given sepsis likely secondary to pneumonia, discussed admission with both patient and hospitalist. Patient agreeable. Hospitalist has accepted patient admission to medicine for continued treatment. Medications Administered Generic Name Dose Route Start Last Admin Trade Name Freq PRN Reason Stop Dose Admin Sodium Chloride 1,000 mls @ 999 mls/hr 04/01/25 11:00 04/01/25 11:19 Ns IV 04/01/25 12:00 999 mls/hr .Q1H1M RONA Administration Discontinued Medications Generic Name Dose Route Start Last Admin Trade Name Freq PRN Reason Stop Dose Admin Ceftriaxone Sodium 1 gm 04/01/25 09:03 04/01/25 10:21 Ceftriaxone Sodium 1 Gm Vial IVPUSH 04/01/25 09:04 1 gm ONCE ONE Administration Azithromycin 500 mg/ Sodium 250 mls @ 125 mls/hr 04/01/25 09:03 04/01/25 10:33 Chloride IV 04/01/25 11:02 125 mls/hr ONCE ONE Administration Medical Decision Making Medical Decision Making [facility] Narrative: 69-year-old healthy female presents to the ED today for evaluation of hoarse voice, sore throat, and productive cough x3 days. Vital signs notable for fever of 101.6, tachycardia to 117. O2 saturation 93%. She is nontoxic-appearing and in no acute distress. On exam, no respiratory distress or tripoding. Lungs are CTA bilaterally. No adventitious breath sounds. Hoarse voice, posterior oropharynx without erythema or edema. No tonsillar exudates or peritonsillar masses. Uvula midline. Controlling secretions and speaking complete sentences. Differential diagnosis includes viral syndrome, strep throat, bronchitis, pneumonia, anemia, electrolyte abnormality. 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 Plan for viral swabs, strep swab, chest x-ray and re-evaluation. Differential Diagnosis Differential Diagnoses: The differential diagnosis associated with the presentation includes As above Admission/Observation Consideration of admission/observation: Escalation of care including admission/observation considered Patient admitted to medicine for sepsis secondary to pneumonia Consult Healthcare Provider Management of the patient was discussed with: Hospitalist (ina rosales) Lab Data [facility] Lab Attestation statement: I reviewed the patient's lab results. As above 04/01/25 10:02 04/01/25 10:51 Labs: Lab Results 04/01/25 04/01/25 04/01/25 Range/Units 05:24 10:02 10:51 WBC 12.4 H (4.8-10.8) X10*3/uL RBC 4.33 (4.20-5.50) X10*6/uL Hgb 13.2 (12.0-16.0) g/dl Hct 39.2 (37.0-47.0) % MCV 90.5 (80.0-98.0) fL MCH 30.5 (27.0-33.0) pg MCHC 33.7 (31.0-35.0) g/dl RDW 13.4 (11.0-16.0) % Plt Count 259 D (160-400) X10*3/uL MPV 8.8 L (9.4-12.3) fL Immature Gran % (Auto) 0.3 (0.0-0.4) % Neut % (Auto) 82.3 H (45-73) % Lymph % (Auto) 8.9 L (20-40) % [place] % (Auto) 7.5 (2-11) % Eos % (Auto) 0.2 (0-4) % Baso % (Auto) 0.8 (0-2) % Lymph # (Auto) 1.1 L (1.2-4.9) X10*3/uL [place] # (Auto) 0.9 (0.1-1.2) X10*3/uL Eos # (Auto) 0.0 (0.0-0.4) X10*3/uL Baso # (Auto) 0.1 (0.0-0.2) X10*3/uL Abs Immat Gran (auto) 0.04 H (0.00-0.03) X10*3/uL Absolute Neuts (auto) 10.2 H (2.0-8.3) x10*3/uL Absolute Nucleated RBC 0.000 (0.0-0.012) X10*3/uL Nucleated RBC % (auto) 0.0 (0.0-0.2) /100WBC Sodium 141 (135-145) mmol/L Potassium 3.9 (3.3-5.1) mmol/L Chloride 106 (96-108) mmol/L Carbon Dioxide 27 (22-29) mmol/L Anion Gap 12 (12-20) BUN 14 (9-16) mg/dL Creatinine 0.82 (0.5-1.4) mg/dL Estim Creat Clear Calc 47.1 Estimated GFR > 60 Random Glucose 163 H (60-115) mg/dL Lactic Acid 3.2 H* (0.5-2.0) mmol/L Calcium 9.0 (8.4-10.2) mg/dL Total Bilirubin 0.6 (0.0-1.0) mg/dL AST 95 H (5-31) U/L ALT 65 H (0-31) U/L Alkaline Phosphatase 93 (39-117) U/L Total Protein 6.9 (6.5-8.0) g/dL Albumin 3.5 (3.5-5.0) g/dL Influenza Type A (PCR) NEGATIVE (Negative) Influenza Type B (PCR) NEGATIVE (Negative) RSV RNA Qual (PCR) NEGATIVE (Negative) SARS-CoV-2 RNA (RT-PCR) NEGATIVE (Negative) S. pyogenes GrpA NAMITA Negative (Negative) Independent Interpretation I performed an independent interpretation of an: Plain X-Ray Interpretation: Chest x-ray showing opacity to right middle lobe Radiology Impression Discussion of test interpretation with radiology: I have reviewed the radiologist's reading. Radiologist Impression: Procedure(s): XR chest 2V Accession Number(s): [id number] cc: Physician,Unknown ; Lupis Delvalle PA~ EXAMINATION: XR CHEST 2 VIEWS HISTORY: fever, productive cough COMPARISON: Comparison is made with the prior examination dated 12/29/2024. FINDINGS: PA and lateral views of the chest are submitted. There is airspace opacity in the right middle lobe, consistent with pneumonia. The left lung is clear. There is no pleural effusion, pneumothorax, or pulmonary vascular congestion. The heart is normal in size. The aorta is tortuous. The bones are intact. XR/XR chest 2V IMPRESSION: Right middle lobe pneumonia. Follow-up is recommended to document resolution. Independent Historian Clinical information obtained from an independent historian. History obtained from or confirmed by: Other ([id number]) External Record Review External record reviewed: Inpatient record Prescription Management I considered prescription management with: Pain Medication Social Determinants Patient?s care significantly limited by Social Determinants of Health including: Other Social Determinant of Health Critical Care Time Critical Care Time Critical Care Time: Yes Total Critical Care Time: 31 Attestation: Critical care time in the amount of 31 minutes has been provided to the patient in terms of direct patient care, frequent reevaluation, consultation with hospitalist, review and interpretation of medical data and results, and management of potentially life-threatening conditions. This is all outside of any medical procedures. Discharge Plan Discharge Clinical Impression: CAP (community acquired pneumonia), Sepsis Patient Disposition: Admitted As Inpatient Print Language: Jordanian
[2025-04-01 10:07] LABS: Basophils Absolute Auto 0.1 X10*3/uL (0.0-0.2); Basophils Percent Auto 0.8 % (0-2); Eosinophils Percent Auto 0.2 % (0-4); Hematocrit 39.2 % (37.0-47.0); Hemoglobin 13.2 g/dl (12.0-16.0); Imm Gran Abs Auto 0.04 X10*3/uL (0.00-0.03); Imm Gran Pct Auto 0.3 % (0.0-0.4); Lymphocytes Absolute Auto 1.1 X10*3/uL (1.2-4.9); Lymphocytes Percent Auto 8.9 % (20-40); MANUAL DIFF FLAG NO; Mean Corpuscular HGB Conc 33.7 g/dl (31.0-35.0); Mean Corpuscular Hemoglobin 30.5 pg (27.0-33.0); Mean Corpuscular Volume 90.5 fL (80.0-98.0); Mean Platelet Volume 8.8 fL (9.4-12.3); Monocytes Absolute Auto 0.9 X10*3/uL (0.1-1.2); Monocytes Percent Auto 7.5 % (2-11); Neutrophils Absolute Auto 10.2 x10*3/uL (2.0-8.3); Neutrophils Percent Auto 82.3 % (45-73); Platelet Count 259 X10*3/uL (160-400); Red Blood Count 4.33 X10*6/uL (4.20-5.50); Red Cell Distribution Width 13.4 % (11.0-16.0); White Blood Count 12.4 X10*3/uL (4.8-10.8)
[2025-04-01] MEDS: cefTRIAXone sodium 1 GM VIAL IVPUSH (10:21)
[2025-04-01] MEDS: Azithromycin 500 MG in 0.9 % Sodium Chloride 250 ML 125 MG IV (10:33)
[2025-04-01 10:40] LABS: Lactic Acid 3.2 mmol/L (0.5-2.0)
[2025-04-01 11:12] LABS: Alanine Aminotransferase 65 U/L (0-31); Albumin Level 3.5 g/dL (3.5-5.0); Alkaline Phosphatase 93 U/L (39-117); Anion Gap 12 (12-20); Aspartate Amino Transferase 95 U/L (5-31); Bilirubin Total 0.6 mg/dL (0.0-1.0); Blood Urea Nitrogen 14 mg/dL (9-16); Carbon Dioxide 27 mmol/L (22-29); Chloride 106 mmol/L (96-108); Creatinine Clr Calc Pharmacy 47.1; Estimated Glomerular Filt Rate > 60; Glucose Random 163 mg/dL (60-115); Potassium 3.9 mmol/L (3.3-5.1); Sodium 141 mmol/L (135-145); Total Protein 6.9 g/dL (6.5-8.0)
[2025-04-01] MEDS: 0.9 % Sodium Chloride 1,000 ML 999 ML IV (11:19)
--- NOTE | 2025-04-01 11:41 | PM.IMHP ---
History of Present Illness Date of Service: 04/01/25 Attending physician on admission: Nikhil Cooley [facility] Chief Complaint: PNA, Fever 69-year-old female presents to the ED today for evaluation of hoarse voice, sore throat, and productive cough x3 days. She started feeling ill over the weekend, developed a fever and temp this morning and presented to ED for further evaluation. She has a productive cough, denies SOB, chest pain or pain with inspiration. 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 Daughter was sick with strep, that was negative, She had sepsis/pneumonia in December of this year (3 months ago). Follow[address] by Dr. Hernandez for SOB that developed last year. She is also followed by Samantha ABERNATHY for dysphagia, EGD was negative, Barium swallow pending. She denies any episodes of coughing or choking prior to feeling ill. In the ED States this feels similar. In the ED she was found to have WBC 12.4. Lactic acid 3.2. Viral panel negative, strep negative. She received Normal saline, ceftriaxone and azithromycin in ED. Denies headache, dizziness, vision changes, chest pain, sore throat, nausea, vomiting, diarrhea, abdominal pain. No recent travel or long car rides. Review of Systems Constitutional: Constitutional: Denies body ache(s), Reports chills, Denies fatigue, Reports fever(s) and Denies night sweats ENT: Reports system reviewed and no additional complaints, except as documented Cardiovascular: Cardiovascular: Denies chest pain, Denies dyspnea, Denies dyspnea on exertion and Denies orthopnea Respiratory: Respiratory: Reports cough, Denies pain on inspiration, Denies dyspnea, Denies dyspnea on exertion and Denies wheezing Gastrointestinal: Gastrointestinal: Denies abdominal pain and Reports nausea Genitourinary: Genitourinary: Denies difficulty voiding Musculoskeletal: Musculoskeletal: Reports no additional musculoskeletal complaints Integumentary/Breasts: Skin/Breast: Reports system reviewed and no additional complaints, except as docu Endocrine: Endocrine: Denies fatigue Allergic/Immunologic: Allergic/Immunologic: Denies wheezing [facility] Medical History Hyperlipidemia Cognitive capacity: CAP Dysphagia Dyspnea on exertion History of Strep bacteremia Functional capacity: independent ambulation Pertinent family history: father COPD Mother Healthy Social History Household Members: Family Housing: Condominium Do you presently have visiting nurse or other home services: No Patient Tobacco Use Status: Never used Tobacco Smoked in Last 30 Days: No Use of substances other than those prescribed or required for medical reasons: No Advance Directives: No Advance Directives Information Provided: Yes service: No Ebola Risk: Travel/Contact With Anyone From Affected Area/s: No History of recent travel: No Recent Travel in [place] Within the Last 8 Weeks: No Recent Out of Country Travel Within the Last 8 Weeks: No Meds Allergies Allergy/AdvReac Type Severity Reaction Status Date / Time iron [IRON] Allergy Intermediate STOMACH Verified 04/01/25 05:17 UPSET ondansetron [From Zofran] Allergy Rash Verified 04/01/25 05:17 Active Medications: Current Medications Acetaminophen (Acetaminophen 325 Mg Tablet) 650 mg PO Q6H PRN PRN Reason: Pain, Mild 1-3,fever,headache Calcium Carbonate (Calcium Carbonate 750 Mg Tab.Chew) 750 mg PO Q4H PRN PRN Reason: Heartburn Ceftriaxone Sodium (Ceftriaxone Sodium 1 Gm Vial) [address] [facility] Sodium Chloride (Ns) 1,000 mls @ 999 mls/hr IV .Q1H1M RONA Stop: 04/01/25 12:00 Last Admin: 04/01/25 11:19 Dose: 999 mls/hr Azithromycin 500 mg/ Sodium (Chloride) 250 mls @ 125 mls/hr IV Q24H [facility] Magnesium Hydroxide (Milk Of Magnesia 30 Ml Oral.Susp) 30 ml PO DAILY PRN PRN Reason: Constipation Melatonin (Melatonin 3 Mg Tablet) 6 mg PO BEDTIME PRN PRN Reason: Insomnia Metoclopramide HCl (Metoclopramide Hcl 10 Mg/2 Ml Vial) 5 mg IVPUSH Q6H PRN PRN Reason: Nausea and Vomiting Ondansetron HCl (Ondansetron Hcl 4 Mg/2 Ml Vial) 4 mg IVPUSH Q8H PRN PRN Reason: Nausea and Vomiting Sodium Chloride (0.9 % Sodium Chloride Flush 3 Ml Syringe) [facility] Home Medications ?Medication ?Instructions ?Recorded ?Confirmed ?Last Taken ?Type cetirizine 10 mg tablet (Zyrtec) 10 mg PO DAILY 04/01/25 04/01/25 03/31/25 History vpnecfas-cvg-IU 0.4 mg-calcium 162 1 tab PO DAILY 04/01/25 04/01/25 03/31/25 History mg-iron 18 nl-zlehjvf-zjvlll tablet multivitamin 1 tab PO DAILY 04/01/25 04/01/25 03/31/25 History Physical Exam Vital Signs and Narrative: Vital Signs: Last Vital Signs Temp 98.2 F 04/01/25 10:12 Pulse 101 H 04/01/25 10:12 Resp 18 04/01/25 10:12 BP 118/53 L 04/01/25 10:12 Pulse Ox 94 04/01/25 10:12 O2 Del Method Room Air 04/01/25 10:12 BMI result Body Mass Index 23.4 Alert and oriented X3, able to give good history. Neuro: CN II-X11 intact, no deficits, visual acuity intact EYES: PERRLA, EOM intact ENT: hearing intact, uvula midline, lips moist, nares patent no epistaxis Cardiac: S1 S2 RRR, no murmur, no JVD, no edema in Lower ext Pulmonary: lungs clear to auscultation, No increased WOB. Abdominal: BS active in all 4 quadrants, no guarding, tenderness, rebounding, obesity MSK: Strength 5/5 upper and lower extremities : no CVA tenderness no bladder distension Extremities: no edema in lower extremities, PT and DP pulses palpable +2 Psych: mood stable, judgement and insight good Skin: Warm and dry, Intact Results Labs 04/01/25 10:02 04/01/25 10:51 Labs: Laboratory Results - last 24 hr 04/01/25 04/01/25 04/01/25 05:24 10:02 10:51 MCV 90.5 MCH 30.5 MCHC 33.7 RDW 13.4 Plt Count 259 D MPV 8.8 L Immature Gran % (Auto) 0.3 Neut % (Auto) 82.3 H Lymph % (Auto) 8.9 L [place] % (Auto) 7.5 Eos % (Auto) 0.2 Baso % (Auto) 0.8 Lymph # (Auto) 1.1 L [place] # (Auto) 0.9 Eos # (Auto) 0.0 Baso # (Auto) 0.1 Abs Immat Gran (auto) 0.04 H Absolute Neuts (auto) 10.2 H Absolute Nucleated RBC 0.000 Nucleated RBC % (auto) 0.0 Anion Gap 12 Estim Creat Clear Calc 47.1 Estimated GFR > 60 Random Glucose 163 H Lactic Acid 3.2 H* Calcium 9.0 Total Bilirubin 0.6 AST 95 H ALT 65 H Alkaline Phosphatase 93 Total Protein 6.9 Albumin 3.5 Influenza Type A (PCR) NEGATIVE Influenza Type B (PCR) NEGATIVE RSV RNA Qual (PCR) NEGATIVE SARS-CoV-2 RNA (RT-PCR) NEGATIVE S. pyogenes GrpA NAMITA Negative Imaging Radiologist's Impressions: Impressions Chest X-Ray 04/01/25 08:06 IMPRESSION: Right middle lobe pneumonia. Follow-up is recommended to document resolution. Electronically signed by: Sanjay Ortiz MD 04/01/2025 08:42 AM EDT RP Assessment and Plan (1) CAP (community acquired pneumonia): Qualifiers: Laterality: right Lung location: middle lobe of lung Qualified Code(s): J18.9 - Pneumonia, unspecified organism Status: Acute Plan 69-year-old female presents to the ED today for evaluation of hoarse voice, sore throat, and productive cough x3 days. Found to have Right midlobe PNA. Sepsis secondary to Right middle lobe PNA Initial WBC 12.4 Lactic Acid 3.2 Continue Azithromax and Ceftriaxone Normal saline times 2 liter Repeat Lactic acid level Labs in am Nausea Treat with reglan due to Zofran allergy. Dysphagia Followed by [facility] outpatient 2 episodes of PNA possibly related to dysphagia Will have DOUBLER HELPER see. Hypotension BP reported 89/55 Additional 1000 CC Bolus Recheck Lactic acid Quality Stroke Does the patient have a stroke diagnosis?: No VTE Prior VTE?: No VTE Risk Level:: Medical - moderate - high VTE Device Contraindication: Treatment Not Indicated VTE Drug Contraindication: N/A - Med Ordered
[2025-04-01 12:05] LABS: Reflex Lactate? Lactic Acid Added
--- NOTE | 2025-04-01 12:23 | PHA.MEDREC ---
Addendum entered by Leigh Monahan RPh 04/01/25 12:30: [facility] reviewed Original Note: Pharmacy Consult ? Medication Reconciliation Pharmacy has completed the medication reconciliation. Spoke to patient to confirm med list. Patient states she is no longer taking Atorvastatin 20 mg.
[2025-04-01] MEDS: Metoclopramide HCl 10 MG/2 ML VIAL 5 MG IVPUSH (12:53)
[2025-04-01] MEDS: Acetaminophen 325 MG TABLET 650 MG PO (13:03)
[2025-04-01 13:27] LABS: ~Lactic Acid-LAB USE ONLY 1.5 mmol/L (0.5-2.0)
--- NOTE | 2025-04-01 13:52 | PC.NURSE ---
Hospitalist provider Tonio notified of PT's blood pressure of 89/55 and aware of the other BP'S taken, new orders placed for 1000cc bolus and a recheck of Lactic Acid.
[2025-04-01] MEDS: 0.9 % Sodium Chloride 1,000 ML 999 ML IVCONT ×2 (14:25→15:41)
[2025-04-01] MEDS: Loratadine 10 MG TABLET PO (14:41)
[2025-04-01] MEDS: Multivitamin TABLET 1 TAB PO (14:41)
[2025-04-01 16:42] LABS: Lactic Acid 2.1 mmol/L (0.5-2.0)
[2025-04-01] MEDS: Lactated Ringers 1,000 ML 150 ML IVCONT (17:07)
[2025-04-01 18:08] LABS: Reflex Lactate? Lactic Acid Added
[2025-04-01 19:26] LABS: ~Lactic Acid-LAB USE ONLY 2.1 mmol/L (0.5-2.0)
[2025-04-01 20:50] LABS: Reflex Lactate? 2 Y
[2025-04-01 21:36] LABS: ~Lactic Acid-LAB USE ONLY 1.1 mmol/L (0.5-2.0)
[2025-04-02] MEDS: Lactated Ringers 1,000 ML 150 ML IVCONT ×3 (00:36→16:59)
[2025-04-02 03:29] VITALS: BP 105/52; PULSE 75; RESP 16; TEMP 37.1; O2SAT 93
[2025-04-02 07:11] LABS: Hematocrit 31.4 % (37.0-47.0); Hemoglobin 10.4 g/dl (12.0-16.0); Mean Corpuscular HGB Conc 33.1 g/dl (31.0-35.0); Mean Corpuscular Volume 90.5 fL (80.0-98.0); Mean Platelet Volume 8.8 fL (9.4-12.3); Platelet Count 210 X10*3/uL (160-400); Red Blood Count 3.47 X10*6/uL (4.20-5.50); Red Cell Distribution Width 13.5 % (11.0-16.0); White Blood Count 16.4 X10*3/uL (4.8-10.8)
[2025-04-02 07:14] VITALS: BP 99/61; PULSE 88; RESP 18; TEMP 36.6; O2SAT 94
[2025-04-02 07:32] LABS: Anion Gap 9 (12-20); Blood Urea Nitrogen 8 mg/dL (9-16); Calcium 8.2 mg/dL (8.4-10.2); Carbon Dioxide 23 mmol/L (22-29); Chloride 113 mmol/L (96-108); Creatinine Clr Calc Pharmacy 65.5; Estimated Glomerular Filt Rate > 60; Glucose Random 90 mg/dL (60-115); Potassium 3.4 mmol/L (3.3-5.1); Sodium 142 mmol/L (135-145)
[2025-04-02] MEDS: Loratadine 10 MG TABLET PO (08:00)
[2025-04-02] MEDS: Multivitamin TABLET 1 TAB PO (08:00)
[2025-04-02 11:13] VITALS: BP 97/62; PULSE 86; RESP 18; TEMP 36.2; O2SAT 93
[2025-04-02] MEDS: cefTRIAXone sodium 1 GM VIAL IVPUSH (11:40)
[2025-04-02] MEDS: Azithromycin 500 MG in 0.9 % Sodium Chloride 250 ML 125 MG IV (11:41)
--- NOTE | 2025-04-02 11:59 | MHC.SL.SWA ---
Speech Pathologist Impression: Moderate pharyngeal dysphagia, undiagnosed Risk of Aspiration Due to: History of Pneumonia Poor PO Intake Weak Voice Dysphasia Diet Status: Liquid Consistency and Strategies for Safe Swallow: Liquid Intake Recommendation: Thin Liquid Intake Strategies: Solid Food Consistency: Dietary Recommendations: Regular Additional Modifications to Solid Foods: Oral Medication Intake: Whole with Liquid Please contact the pharmacy regarding appropriate crushable or liquid drug formulations that are available whenever modified delivery is recommended. Compensatory Strategies and Precautions to be Taken for Safe Swallow: Sitting Upright (90 deg) Chin Tuck Double Swallow Alternate Liquids/Solids Rate of Ingestion Change Supervision While Eating and Drinking for Safe Swallow: Intermittent Supervision Foods to Avoid: Swallowing Recommended Treatments: Compens. Strategy Educat. Recommendation for Speech: Outpatient Speech Therapy Modified Barium Swallow Study - Inpatient Comment: Pt presents with adequate oropharyngeal coordination and timing. Coughing occurs intermittently s/p deglution variably with any consistency. Pt has MBSS scheduled at this time with OP, caregivers questioned if MBSS can be conducted while she is inpatient. BUSINESS SYSTEMS LEAD provided education and review of recommended diet, safety, compensatory strategies (i.e upright positioning, slow pacing, alternating consistencies, chin tuck, double swallow), and likelihood for skilled ST s/p MBSS to address dysphagia management and/or to strengthen pharyngeal swallow. Pt and caregivers verbalized understanding and agreed with recommendations/POC. RN consulted, hospitalist notified of findings. BUSINESS SYSTEMS LEAD continues to follow. Frequency/Duration: Date Range for Service Req: Timeline to reassess: Electrical Technician Instructor Clinican/Clinical Fellow: No Supervisory Statement: I have reviewed and agree with the student/clinical fellow's documentation: N/A Speech Language Pathologist: Daija Argueta M.S., [facility]-[employer]
--- NOTE | 2025-04-02 12:34 | HO.PM.IMPN ---
Subjective Subjective Date of Service: 04/02/25 Interval History: Pt seen and evaluated for f/u for pneumonia meeting sepsis criteria Reports he is feeling much better Has been coughing up brownish sputum No acute events overnight Denies fever, chills, nausea, vomiting Family at bedside report concern for dysphagia andaspiration Review of Systems Review of Systems: Yes all other systems are reviewed and are negative Physical Exam Vital Signs: Vital Signs: Last Vital Signs Temp 97.2 F 04/02/25 11:13 Pulse 86 04/02/25 11:13 Resp 18 04/02/25 11:13 BP 97/62 04/02/25 11:13 Pulse Ox 93 04/02/25 11:13 O2 Del Method Room Air 04/02/25 11:13 BMI result Body Mass Index 23.4 General: AOx3, no acute distress Resp: CTA bilaterally CVS: S1, S2, RRR GI: +BS, NT, no distention Skin: Warm, dry Neuro: Cranial nerves II-XII grossly intact bilaterally. Motor grossly intact bilaterally Extremities: No edema Psych: Appropriate affect Objective Data Active Medications Acetaminophen (Acetaminophen 325 Mg Tablet) 650 mg PO Q6H PRN PRN Reason: Pain, Mild 1-3,fever,headache Last Admin: 04/01/25 13:03 Dose: 650 mg Documented By: GUNNAR Comments: Tylenol for fever of 102.2f Calcium Carbonate (Calcium Carbonate 750 Mg Tab.Chew) 750 mg PO Q4H PRN PRN Reason: Heartburn Ceftriaxone Sodium (Ceftriaxone Sodium 1 Gm Vial) 1 gm IVPUSH Q24H [facility] Last Admin: 04/02/25 11:40 Dose: 1 gm Documented By: CRIS Enoxaparin Sodium (Enoxaparin Sodium 40 Mg/0.4 Ml Syringe) 40 mg SUBCUT Q12H [facility] Last Admin: 04/02/25 00:36 Dose: Not Given Documented By: CRUZ Non-Admin Reason: Patient Refused Azithromycin 500 mg/ Sodium (Chloride) 250 mls @ 125 mls/hr IV Q24H [facility] Last Infusion: 04/02/25 12:10 Dose: 0 mls/hr Documented By: CRIS Lactated Ringer's (Lr) 1,000 mls @ 150 mls/hr IVCONT .Q6H40M [facility] Last Infusion: 04/02/25 12:10 Dose: 0 mls/hr Documented By: CRIS Loratadine (Loratadine 10 Mg Tablet) 10 mg PO DAILY [facility] Last Admin: 04/02/25 08:00 Dose: 10 mg Documented By: CRIS Magnesium Hydroxide (Milk Of Magnesia 30 Ml Oral.Susp) 30 ml PO DAILY PRN PRN Reason: Constipation Melatonin (Melatonin 3 Mg Tablet) 6 mg PO BEDTIME PRN PRN Reason: Insomnia Metoclopramide HCl (Metoclopramide Hcl 10 Mg/2 Ml Vial) 5 mg IVPUSH Q6H PRN PRN Reason: Nausea and Vomiting Last Admin: 04/01/25 12:53 Dose: 5 mg Documented By: GUNNAR Multivitamins/Vitamin C (Multivitamin Tablet) 1 tab PO DAILY [facility] Last Admin: 04/02/25 08:00 Dose: 1 tab Documented By: CRIS Multivitamins/Vitamin C (Multivitamin Tablet) 1 tab PO DAILY [facility] Last Admin: 04/02/25 08:06 Dose: Not Given Documented By: CRIS Non-Admin Reason: Duplicate Order Ondansetron HCl (Ondansetron Hcl 4 Mg/2 Ml Vial) 4 mg IVPUSH Q8H PRN PRN Reason: Nausea and Vomiting Sodium Chloride (0.9 % Sodium Chloride Flush 3 Ml Syringe) 3 ml IVFLUSH QSHIFT [facility] Last Admin: 04/02/25 08:03 Dose: Not Given Documented By: CRIS Non-Admin Reason: IV Running Labs 04/02/25 06:56 04/02/25 06:56 Labs: Laboratory Results - last 24 hr 04/01/25 04/01/25 04/01/25 12:51 16:04 18:32 MCV MCH MCHC RDW Plt Count MPV Absolute Nucleated RBC Nucleated RBC % (auto) Anion Gap Estim Creat Clear Calc Estimated GFR Random Glucose Lactic Acid 2.1 H* Lactic Acid F/U @ 2Hr 1.5 2.1 H* Lactic Acid F/U @ 4Hr Calcium 04/01/25 04/02/25 21:06 06:56 MCV 90.5 MCH 30.0 MCHC 33.1 RDW 13.5 Plt Count 210 MPV 8.8 L Absolute Nucleated RBC 0.000 Nucleated RBC % (auto) 0.0 Anion Gap 9 L Estim Creat Clear Calc 65.5 Estimated GFR > 60 Random Glucose 90 Lactic Acid Lactic Acid F/U @ 2Hr Lactic Acid F/U @ 4Hr 1.1 Calcium 8.2 L D Microbiology Microbiology Results: Microbiology 04/01/25 10:10 Blood Culture - Preliminary Blood - Venous No growth after 24 hours. 04/01/25 10:02 Blood Culture - Preliminary Blood - Venous No growth after 24 hours. Assessment and Plan (1) CAP (community acquired pneumonia): Status: Acute (2) Sepsis: Status: Acute Plan 69-year-old female presents to the ED today for evaluation of hoarse voice, sore throat, and productive cough x3 days. Found to have Right midlobe PNA. Sepsis secondary to Right middle lobe PNA Initial WBC 12.4 Lactic Acid 3.2 Leukocytosis increased 16.4, lactic acid resolved at 1.1 Continue ceftriaxone and azithromycin Follow CBC Hemoglobin and hematocrit Patient's H&H dropped to 10.4/31.4 from 13.2/39.2 Likely delutional from IVF No signs of bleeding Follow CBC Dysphagia w/concern for aspiration Family report pt with difficulties swallowing, 2 episodes of PNA possibly related to dysphagia [facility] Speech and swallow eval recommend regular solids, thin liquids with intermittent supervision Will get inpatient modified barium swallow study per speech therapy Hypotension, resolved BP as low as 84/55 Pt given 2L IVF bolus and placed on maintenance fluids Currently normotensive at 123/60 Faheem stop IVF at this time Pt will continue to require hospitalization for administration of IV abx and close monitoring of labs and BP. Quality Stroke Does the patient have a stroke diagnosis?: No VTE Prior VTE?: No VTE Risk Level:: Medical - moderate - high VTE Device Contraindication: Treatment Not Indicated VTE Drug Contraindication: N/A - Med Ordered
--- NOTE | 2025-04-02 13:52 | MHC.CM.PN ---
Pt self-care, lives at home with her son and his family. Pts family will transport her home at discharge. Pt states her mac is her HCP, they have a copy at home, copy requested. PCP: Karla Jennings
[2025-04-02 15:08] VITALS: BP 123/60; PULSE 86; RESP 17; TEMP 36.1; O2SAT 97
[2025-04-02 19:54] VITALS: BP 119/63; PULSE 87; RESP 20; TEMP 36.8; O2SAT 97
[2025-04-02] MEDS: 0.9 % Sodium Chloride Flush 3 ML SYRINGE IVFLUSH (20:25)
[2025-04-02 23:35] VITALS: BP 119/61; PULSE 89; RESP 20; TEMP 37.1; O2SAT 95
[2025-04-03 03:58] VITALS: BP 113/56; PULSE 80; RESP 18; TEMP 37.3; O2SAT 92
[2025-04-03 07:32] VITALS: BP 122/60; PULSE 80; RESP 14; TEMP 37.2; O2SAT 96
[2025-04-03 07:49] LABS: Hematocrit 30.2 % (37.0-47.0); Hemoglobin 10.4 g/dl (12.0-16.0); Mean Corpuscular HGB Conc 34.4 g/dl (31.0-35.0); Mean Corpuscular Hemoglobin 30.2 pg (27.0-33.0); Mean Corpuscular Volume 87.8 fL (80.0-98.0); Mean Platelet Volume 8.8 fL (9.4-12.3); Platelet Count 223 X10*3/uL (160-400); Red Blood Count 3.44 X10*6/uL (4.20-5.50); Red Cell Distribution Width 13.6 % (11.0-16.0); White Blood Count 14.3 X10*3/uL (4.8-10.8)
[2025-04-03] MEDS: Loratadine 10 MG TABLET PO (08:00)
[2025-04-03] MEDS: Multivitamin TABLET 1 TAB PO (08:00)
[2025-04-03] MEDS: 0.9 % Sodium Chloride Flush 3 ML SYRINGE IVFLUSH ×2 (08:40→17:23)
[2025-04-03 11:50] VITALS: BP 123/61; PULSE 80; RESP 19; TEMP 36.9; O2SAT 95
--- NOTE | 2025-04-03 11:59 | HO.PM.IMPN ---
Subjective Subjective Date of Service: 04/03/25 Interval History: Seen and examined, report feeling better, no chocking with food Review of Systems Review of Systems: Yes all other systems are reviewed and are negative Physical Exam Vital Signs: Vital Signs: Last Vital Signs Temp 98.4 F 04/03/25 11:50 Pulse 80 04/03/25 11:50 Resp 19 04/03/25 11:50 BP 123/61 04/03/25 11:50 Pulse Ox 95 04/03/25 11:50 O2 Del Method Room Air 04/03/25 11:50 BMI result Body Mass Index 23.4 General: AOx3, no acute distress Resp: CTA bilaterally CVS: S1, S2, RRR GI: +BS, NT, no distention Skin: Warm, dry Neuro: Cranial nerves II-XII grossly intact bilaterally. Motor grossly intact bilaterally Extremities: No edema Psych: Appropriate affect Objective Data Active Medications Acetaminophen (Acetaminophen 325 Mg Tablet) 650 mg PO Q6H PRN PRN Reason: Pain, Mild 1-3,fever,headache Last Admin: 04/01/25 13:03 Dose: 650 mg Documented By: GUNNAR Comments: Tylenol for fever of 102.2f Calcium Carbonate (Calcium Carbonate 750 Mg Tab.Chew) 750 mg PO Q4H PRN PRN Reason: Heartburn Ceftriaxone Sodium (Ceftriaxone Sodium 1 Gm Vial) 1 gm IVPUSH Q24H [facility] Last Admin: 04/02/25 11:40 Dose: 1 gm Documented By: CRIS Enoxaparin Sodium (Enoxaparin Sodium 40 Mg/0.4 Ml Syringe) 40 mg SUBCUT Q12H [facility] Last Admin: 04/03/25 02:28 Dose: Not Given Documented By: ANTOINC Non-Admin Reason: Patient Refused Guaifenesin/Codeine Phosphate (Guaifen/Codeine Sf 200/20/10ml 10 Ml Liquid) 5 ml PO Q4H PRN PRN Reason: Cough Azithromycin 500 mg/ Sodium (Chloride) 250 mls @ 125 mls/hr IV Q24H [facility] Last Infusion: 04/02/25 14:31 Dose: Infused Documented By: CRIS Loratadine (Loratadine 10 Mg Tablet) 10 mg PO DAILY [facility] Last Admin: 04/03/25 08:00 Dose: 10 mg Documented By: PRADEEP Magnesium Hydroxide (Milk Of Magnesia 30 Ml Oral.Susp) 30 ml PO DAILY PRN PRN Reason: Constipation Melatonin (Melatonin 3 Mg Tablet) 6 mg PO BEDTIME PRN PRN Reason: Insomnia Metoclopramide HCl (Metoclopramide Hcl 10 Mg/2 Ml Vial) 5 mg IVPUSH Q6H PRN PRN Reason: Nausea and Vomiting Last Admin: 04/01/25 12:53 Dose: 5 mg Documented By: GUNNAR Multivitamins/Vitamin C (Multivitamin Tablet) 1 tab PO DAILY [facility] Last Admin: 04/03/25 08:00 Dose: 1 tab Documented By: PRADEEP Multivitamins/Vitamin C (Multivitamin Tablet) 1 tab PO DAILY [facility] Last Admin: 04/03/25 08:47 Dose: Not Given Documented By: PRADEEP Non-Admin Reason: Duplicate Order Ondansetron HCl (Ondansetron Hcl 4 Mg/2 Ml Vial) 4 mg IVPUSH Q8H PRN PRN Reason: Nausea and Vomiting Sodium Chloride (0.9 % Sodium Chloride Flush 3 Ml Syringe) 3 ml IVFLUSH QSHIFT [facility] Last Admin: 04/03/25 08:40 Dose: 3 ml Documented By: PRADEEP Labs 04/03/25 07:33 04/02/25 06:56 Labs: Laboratory Results - last 24 hr 04/03/25 07:33 MCV 87.8 MCH 30.2 MCHC 34.4 RDW 13.6 Plt Count 223 MPV 8.8 L Absolute Nucleated RBC 0.000 Nucleated RBC % (auto) 0.0 Microbiology Microbiology Results: Microbiology 04/01/25 10:10 Blood Culture - Preliminary Blood - Venous No growth after 24 hours. 04/01/25 10:02 Blood Culture - Preliminary Blood - Venous No growth after 24 hours. Assessment and Plan (1) CAP (community acquired pneumonia): Status: Acute (2) Sepsis: Status: Acute Plan 69-year-old female presents to the ED today for evaluation of hoarse voice, sore throat, and productive cough x3 days. Found to have Right midlobe PNA. Sepsis secondary to Right middle lobe PNA Initial WBC 12.4 Lactic Acid 3.2 Leukocytosis down to 14 lactic acidosis Continue ceftriaxone and azithromycin Follow CBC Hemoglobin and hematocrit Patient's H&H dropped to 10.4/31.4 from 13.2/39.2 Likely delutional from IVF and is stable today No signs of bleeding Follow CBC Dysphagia w/concern for aspiration Family report pt with difficulties swallowing, 2 episodes of PNA possibly related to dysphagia [facility]s [facility] Speech and swallow eval recommend regular solids, thin liquids with intermittent supervision Will get inpatient modified barium swallow study per speech therapy HypOtension, resolved BP as low as 84/55 Pt given 2L IVF bolus and placed on maintenance fluids Currently normotensive at 123/60 Faheem stop IVF at this time Pt will continue to require hospitalization for administration of IV abx and close monitoring of labs and BP. Quality Stroke Does the patient have a stroke diagnosis?: No VTE Prior VTE?: No VTE Risk Level:: Medical - moderate - high VTE Device Contraindication: Treatment Not Indicated VTE Drug Contraindication: N/A - Med Ordered
[2025-04-03] MEDS: Azithromycin 500 MG in 0.9 % Sodium Chloride 250 ML 125 MG IV (12:06)
[2025-04-03] MEDS: cefTRIAXone sodium 1 GM VIAL IVPUSH (12:07)
[2025-04-03] MEDS: guaiFEN/Codeine SF 200/20/10ML 10 ML LIQUID 5 ML PO ×2 (12:07→22:15)
[2025-04-03 15:23] VITALS: BP 148/60; PULSE 83; RESP 16; TEMP 36.9; O2SAT 96
[2025-04-03 20:00] VITALS: BP 135/88; PULSE 83; RESP 20; TEMP 36.8; O2SAT 95
[2025-04-04] VITALS: BP 123/62; PULSE 89; RESP 16; TEMP 36.7; O2SAT 97
[2025-04-04 03:16] VITALS: BP 132/67; PULSE 87; RESP 16; TEMP 37.1; O2SAT 95
[2025-04-04 07:25] VITALS: BP 126/56; PULSE 76; RESP 18; TEMP 37.4; O2SAT 95
[2025-04-04 08:00] VITALS: BP 127/59; PULSE 76; RESP 14; TEMP 37.7; O2SAT 93
[2025-04-04 08:29] LABS: Mean Corpuscular HGB Conc 33.3 g/dl (31.0-35.0); Mean Corpuscular Hemoglobin 29.9 pg (27.0-33.0); Mean Corpuscular Volume 89.8 fL (80.0-98.0); Mean Platelet Volume 9.1 fL (9.4-12.3); Platelet Count 293 X10*3/uL (160-400); Red Blood Count 4.01 X10*6/uL (4.20-5.50); Red Cell Distribution Width 13.3 % (11.0-16.0); White Blood Count 9.9 X10*3/uL (4.8-10.8)
[2025-04-04 08:45] LABS: Anion Gap 13 (12-20); Blood Urea Nitrogen 7 mg/dL (9-16); Carbon Dioxide 27 mmol/L (22-29); Chloride 105 mmol/L (96-108); Creatinine Clr Calc Pharmacy 59.4; Estimated Glomerular Filt Rate > 60; Glucose Random 95 mg/dL (60-115); Sodium 141 mmol/L (135-145)
[2025-04-04] MEDS: 0.9 % Sodium Chloride Flush 3 ML SYRINGE IVFLUSH (09:44)
[2025-04-04] MEDS: cefTRIAXone sodium 1 GM VIAL IVPUSH (11:05)
[2025-04-04] MEDS: Multivitamin TABLET 1 TAB PO (11:05)
[2025-04-04] MEDS: Loratadine 10 MG TABLET PO (11:05)
[2025-04-04] MEDS: Azithromycin 500 MG in 0.9 % Sodium Chloride 250 ML 125 MG IV (11:09)
--- NOTE | 2025-04-04 11:41 | MHC.CM.PN ---
Per MD rounds patient is ready to discharge today. She has completed MBS today. She will discharge to home with family. A family member will provide transportation home.
--- NOTE | 2025-04-04 11:54 | PM.DS ---
DS: Providers Provider Date of Service: 04/04/25 Date of admission: 04/01/25 10:52 Date of discharge: 04/04/25 Primary care physician: Karla Jennings MD DS: Diagnosis Discharge Diagnosis (1) CAP (community acquired pneumonia): Status: Acute (2) Sepsis: Status: Acute DS: Summary Hospital Course Hospital Course: admission hpi Chief Complaint: PNA, Fever 69-year-old female presents to the ED today for evaluation of hoarse voice, sore throat, and productive cough x3 days. She started feeling ill over the weekend, developed a fever and temp this morning and presented to ED for further evaluation. She has a productive cough, denies SOB, chest pain or pain with inspiration. 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 Daughter was sick with strep, that was negative, She had sepsis/pneumonia in December of this year (3 months ago). Follow[address] by Dr. Hernandez for SOB that developed last year. She is also followed by [facility] for dysphagia, EGD was negative, Barium swallow pending. She denies any episodes of coughing or choking prior to feeling ill. In the ED States this feels similar. In the ED she was found to have WBC 12.4. Lactic acid 3.2. Viral panel negative, strep negative. She received Normal saline, ceftriaxone and azithromycin in ED. Denies headache, dizziness, vision changes, chest pain, sore throat, nausea, vomiting, diarrhea, abdominal pain. No recent travel or long car rides. hospital course: 69-year-old female presented to the ED with a 3-day history of hoarse voice, sore throat, and productive cough. She has a history of pneumonia and prior streptococcal bacteremia. Imaging revealed right middle lobe pneumonia, and she met criteria for sepsis on admission. Blood cultures have remained negative for 48 hours. She was started on ceftriaxone and azithromycin. Her initial WBC was 12, increased to 16 on day two, then trended down to 14, and is now 9. She has remained afebrile. Her oxygen saturation is 93% on room air. She continues to have a mild cough with betty sputum, but overall reports clinical improvement. There was concern for dysphagia and possible aspiration. Family reports prior swallowing difficulties and two prior episodes of pneumonia potentially related to dysphagia. She follows with [facility] as an outpatient. Speech and swallow evaluation recommended regular solids and thin liquids with intermittent supervision. A modified barium swallow study was also recommended by speech therapy. Overall, the patient is improving clinically, sepsis has resolved, and she will be transitioned to oral cefuroxime to complete a 10-day total course, and to complete 5 days of azithromycin. Hemoglobin and hematocrit Patient's H&H dropped to 10.4/31.4 from 13.2/39.2 Likely delutional from IVF, presently hemoglobin 12 and hematocrit 36. HypOtension, on presentation, BP as low as 84/55 Pt given 2L IVF bolus and placed on maintenance fluids Final diagnoses: Sepsis pneumonia Hypotension Time Attestation Discharge Coordination Time (in mins): 45 Quality: Safe Use of Opioids Does Pt have an Active Cancer Diagnosis on the Problem List?: No Quality: Stroke Does the patient have a stroke diagnosis?: No Physical Exam Vital Signs: Vital Signs: Last Vital Signs Temp 99.8 F 04/04/25 08:00 Pulse 76 04/04/25 08:00 Resp 14 04/04/25 08:00 BP 127/59 L 04/04/25 08:00 Pulse Ox 93 04/04/25 08:00 O2 Del Method Room Air 04/04/25 08:00 BMI result Body Mass Index 23.4 General: AOx3, no acute distress Resp: CTA bilaterally CVS: S1, S2, RRR GI: +BS, NT, no distention Skin: Warm, dry Neuro: Cranial nerves II-XII grossly intact bilaterally. Motor grossly intact bilaterally Extremities: No edema Psych: Appropriate affect DS: Data Data Completed and Pending Labs on day of discharge: Laboratory Results - last 24 hr 04/04/25 06:59 WBC 9.9 RBC 4.01 L Hgb 12.0 Hct 36.0 L MCV 89.8 MCH 29.9 MCHC 33.3 RDW 13.3 Plt Count 293 D MPV 9.1 L Absolute Nucleated RBC 0.000 Nucleated RBC % (auto) 0.0 Sodium 141 Potassium 4.0 Chloride 105 Carbon Dioxide 27 Anion Gap 13 BUN 7 L Creatinine 0.65 Estim Creat Clear Calc 59.4 Estimated GFR > 60 Random Glucose 95 Calcium 9.0 D Preliminary micro results at discharge 04/01/25 10:10 Blood Culture - Preliminary Blood - Venous No growth after 48 hours. 04/01/25 10:02 Blood Culture - Preliminary Blood - Venous No growth after 48 hours. Discharge Plan Discharge Anticipated Discharge Date/Time: 04/04/25 12:07 Patient Disposition: Home, Self-Care Discharge Diagnosis: Sepsis, pneumonia Referrals: Karla Jennings MD [Primary Care Provider] - 1 Week Discharge Medications: New azithromycin 250 mg tablet 250 mg PO DAILY 1 Days Qty: 1 0RF Rx Instructions: next dose tomorrow cefuroxime axetil 500 mg tablet 500 mg PO BID 6 Days Qty: 12 0RF codeine-guaifenesin 10-100 mg/5 mL Liquid 5 ml PO Q4H PRN (Reason: Cough) Qty: 120 0RF Continued multivitamin Tablet 1 tab PO DAILY cetirizine [Zyrtec] 10 mg Tablet 10 mg PO DAILY [id number] 0.4-162-18 mg Tablet 1 tab PO DAILY Discharge Orders: Discharge Order (Routine); Ordered 04/04/25 Ordered By: Nikhil Rodriguez Diet: Advance to usual diet Activity on Discharge: As tolerated Stand Alone Forms: Patient Portal Discharge page, Work/School Release Print Language: Maltese Care Plan Goals: recovery from pneumonia, and sepsis Health Concerns: Pneumonia sepsis concern for aspiration Plan of Treatment: take azithromycin and Cefuroxime as recommended and follow up with your doctor and GI doctor Assessment: see above Patient Instructions: Cefuroxime (By mouth) (Ceftin), Azithromycin (By mouth) Discharge Date/Time: 04/04/25 16:41
[2025-04-04 12:00] VITALS: BP 110/57; PULSE 85; RESP 16; TEMP 37.4; O2SAT 93
--- NOTE | 2025-04-07 09:15 | MHC.SL.IMP ---
Date of Plan of Treatment: 04/04/25 Onset of Symptoms/Illness: 04/04/24 Date Treatment Started: 04/04/25 Admitting Diagnosis: CAP, sepsis Primary Speech & Language Diagnosis: R13.11 Oral Phase Dysphagia Secondary Speech & Language Diagnosis: R49.9 Unspecified voice Reason for Today's Visit: 28794 Modified Barium Swallow Study Pre-evaluation Dietary Consistencies: Regular Pre-evaluation Liquid Consistency: Thin Pre-evaluation Medication Administration: Whole with Liquid Medical History: Modified Barium Swallow Study Fluoroscopic Evaluation of Swallowing Function CPT Code 49790 Evaluation Year: 2024 Reason for Study: Difficulty swallowing Referring Physician: Nikhil Rodriguez MD Evaluating Clinician: Rossy Foster MA, CCC-MANAGER LOSS PREVENTION Study Number: 1 Patient Name: Nena Neri Status: Inpatient, Wheelchair Age: 69 Gender: Female Medical History Medical History Hyperlipidemia Current (pre-evaluation) Intake/Diet: Route: PO Diet Grade: Regular Liquid Consistencies: Thin Pre-Study Functional Oral Intake Scale (FOIS): 7- Total oral intake with no restrictions Pain: None reported at time of study SUBJECTIVE: Patient is a 69 year old female brought to the ED with hoarse voice, sore throat, productive cough x 3 days, found to have R-midlobe PNA. Family reports patient has been having difficulty swallowing noting 2 episodes of PNA. She is reportedly followed by Dr. Hernandez for SOB and by GI at [facility] for dysphagia. Patient reports onset of dysphagia one year ago. She denied pain and coughing/choking. She reports feeling globus sensation and discomfort with solids only at the mid-chest. She denies having difficulty swallowing liquids. Patient is scheduled for MBSS as outpatient in April, patient inquired about having exam done during this hospitalization. Oral Motor Exam Facial Symmetry: Symmetrical Mouth Occlusion: Normal Oral-Facial Teeth Characteristics: Partially Missing Spaces Oral-Facial Lip Pucker Description: Normal Oral-Facial Smile (Lips) Description: Normal Oral-Facial Puff Cheeks Description: Normal Tongue Size: Normal Tongue Excursion Description: Normal Tongue Range of Movement Description: Normal Tongue Speed of Movement Description: Normal Tongue Strength of Movement (against opposing pressure): Normal Tongue Movement Characteristics: Normal/Absent Is patient able to manage secretions?: Yes Is patient able to produce volitional cough?: Yes Food and Liquid Trials: Oral Impairment: Lip Closure: 0=No labial escape Oral Impairment: Tongue Control During Bolus Hold: 0=Cohesive bolus between tongue to palatal seal Oral Impairment: Bolus Preparation/Mastication: 2=Disorganized chewing/mashing with solid pieces of bolus Oral Impairment: Bolus Transport/Lingual Motion: 1= Delayed initiation of tongue motion Oral Impairment: Oral Residue: 2=Residue collection on oral structures Oral Impairment:Initiation of Pharyngeal Swallow: 1=Bolus head in valleculae Pharyngeal Impairment: Soft Palate Elevation: 0=No bolus between soft palate (SP)/pharyngeal wall (PW) Pharyngeal Impairment: Laryngeal Elevation: 1=Partial thyroid cartilage/arytenoids to epiglottic petiole movement Pharyngeal Impairment: Anterior Hyoid Excursion: 1=Partial anterior movement Pharyngeal Impairment: Epiglottic Movement: 1=Partial inversion Pharyngeal Impairment: Laryngeal Vestibular Closure:: 0=Complete: no air/contrast in laryngeal vestibule Pharyngeal Impairment: Pharyngeal Stripping Wave: 0=Present: complete Pharyngeal Impairment: Pharyngeal Contraction: Did not test Pharyngeal Impairment: Pharyngoesophageal Segment Openin=Partial distention/partial duration: partial obstruction of flow Pharyngeal Impairment: Tongue Base (TB) Retraction: 2=Narrow column of contrast/air between TB and posterior PW Pharyngeal Impairment: Pharyngeal Residue: 1=Trace residue within or on pharyngeal structures Pharyngeal Impairment: Esophageal Clearance Upright Position: Did not test Impressions and Recommendations OBJECTIVE: Time-out: performed at 10:45 Evaluation Start: 10:30; Stop: 10:35 Patient Positioning: Seated 70-90 degrees Viewing Planes: LATERAL ONLY Contrast: MBSImP? Standardized Protocol using commercially prepared, standardized Barium viscosities, including: Varibar? THIN LIQUID (40% w/v, <15 cps) , Varibar? PUDDING (40% w/v, <2475-8800 cps) , 1/2 Shortbread Cookie (1 x1 x.25 ) MBSImP ID: [id number] MBSImP Results: Lip closure for intraoral bolus containment resulted in no labial escape. Tongue control during bolus hold maintained a cohesive bolus held between tongue to palate seal. Bolus preparation and mastication demonstrated disorganized chewing/mashing with solid pieces of the bolus unchewed. Bolus transport/lingual motion demonstrated delayed initiation of tongue motion. Oral residue was a collection on oral structures. Initiation of the pharyngeal swallow occurred when the bolus head was in the valleculae. Soft palate elevation resulted in no bolus between the soft palate and the pharyngeal wall. Laryngeal elevation was decreased, with partial superior movement of the thyroid cartilage/partial approximation of the arytenoids to the epiglottic petiole. Anterior hyoid excursion demonstrated partial anterior movement. Epiglottic movement resulted in partial inversion. Laryngeal vestibular closure was complete, as indicated by no air or contrast within the laryngeal vestibule at the height of the swallow. Pharyngeal stripping wave was present and complete. Pharyngeal contraction could not be determined due to logistical reasons not related to physiologic impairment. Pharyngoesophageal segment opening demonstrated partial distension/partial duration, with partial obstruction of bolus flow. Tongue base retraction allowed a narrow column of contrast or air between the retracted tongue base and the posterior pharyngeal wall. Pharyngeal residue was a trace within or on pharyngeal structures. Esophageal clearance in the upright position could not be assessed due to logistical reasons not related to physiologic impairment. Oral Impairment Score: 6 Pharyngeal Impairment Score: 6 (absence of score, component 13) Esophageal Impairment Score: --- (absence of score, component 17) Laryngeal Penetration and Aspiration: Neither penetration nor aspiration was observed in today's study with Cookie, Pudding-thick, Thin. ASSESSMENT: Exam was performed by the radiologist and the speech pathologist. Patient was sitting upright in a wheelchair for lateral view only. She fed herself without difficulty and trialed the following consistencies: thin liquids (via individual cup sips, rapid cup sips), puree, and regular solid. Good lip closure with no anterior escape. Patient demonstrated good tongue control, maintaining cohesive bolus between tongue to palatal seal. There was no premature posterior escape. Mastication was significantly prolonged, characterized by anterior chewing pattern, likely due to poor dentition, and piece meal pattern. Patient chewed and swallowed 5-8 times to clear bolus from the oral cavity. Note delayed AP transit. There was minimal lingual residue, which subsequently cleared. Pharyngeal swallow trigger initiated as the bolus head reached the valleculae. No evidence of nasopharyngeal reflux. Partial laryngeal elevation with partial epiglottic inversion. Complete laryngeal vestibular closure. No evidence of aspiration or penetration during this exam. There was trace residue on the tongue base, but complete clearing of the valleculae and pyriforms on solids. There was trace pooling in the valleculae and pyriforms with liquids. Liquid Intake Recommendation: Thin Liquid Intake Strategies: Dietary Recommendations: Regular Medication Administration: Whole with Liquid Please contact the pharmacy regarding appropriate crushable or liquid drug formulations that are available whenever modified delivery is recommended. Compensatory Strategies Recommended: Sitting Upright (90 deg), Double Swallow, Small Bites and Sips, Alternate Liquids/Solids, Rate of Ingestion Change, Avoid Specific Foods Supervision during eating and or drinking: Intermittent Supervision Recommended Treatments: Compens. Strategy Educat. Recommendation for Speech Therapy: NA:Typical Evaluation Text Comment: Intake Recommendations: Route: PO Diet Grade: Regular Liquid Consistencies: Thin Post-Study Functional Oral Intake Scale (FOIS): 6- Total oral intake with no special preparation, but must avoid specific foods or liquid items No evidence of aspiration or penetration during this exam. Patient presents with mild oral phase dysphagia, characterized by significantly prolonged and disorganized mastication pattern, seems at least partially attributed to poor dentition, delayed AP transit, and reduced tongue base retraction. There is good oral and pharyngeal clearance. Therapy Recommendations: Further ST intervention is not warranted at this time. Recommend patient avoid overly hard or difficult to chew solids due to poor dentition and disorganized mastication pattern. Recommend continue workup w/ GI as outpatient for complaints of globus sensation. MBSS shows overall good oral and pharyngeal clearance. Clinician - Supplemental, Miscellaneous Communication: It is important to note MBSS objective studies are snapshots in time and Patient function might vary with factors such as time of day or concomitant medical conditions. For this reason, the final treatment plan for this patient should rest with their medical care team. Additional recommendations should be considered with the totality of the Patient in mind. Thank for the opportunity to participate in the care of this patient. If you have any questions about the content of this report, please contact the [facility] at [facility]. Education: Education regarding findings from today's study and plans for therapy were provided to Patient only through Verbal Instruction. Understanding was expressed by the Patient only. Area Counselor Clinician/Clinical Fellow: No Supervisory Statement: N/A Speech Language Pathologist: Rossy Foster M.A., CCC-MANAGER LOSS PREVENTION
== END 2025-04-04 16:41 | disposition home or self-care (01) | DRG 720 ==
LOC: HO.ED 11:20 → HO.EDOVER 11:32 → HO.IMC 17:01
PROVIDERS: Nurse Practitioner Family; Physician Assistant Medical; Student in an Organized Health Care Education/Training Program; Admitting Provider Nurse Practitioner Acute Care; Emergency Provider Emergency Medicine Emergency Medical Services; PCP Internal Medicine; Visit Provider Internal Medicine
DX: A41.9 Sepsis, unspecified organism (principal); J18.9 Pneumonia, unspecified organism; I95.9 Hypotension, unspecified; R13.10 Dysphagia, unspecified; Z20.822 Contact with and (suspected) exposure to COVID-19; Z87.01 Personal history of pneumonia (recurrent); Z79.899 Other long term (current) drug therapy
CPT/HCPCS: 0241U; 36415; 71046; 74230; 80048; 80053; 83605; 85025; 85027; 87040; 87651; 92610; 92611; 99285; J0456; J0696; J2765; J7120

== ENCOUNTER → 2025-04-01 08:06 | Outpatient (BNV) | payer OTHER, SELFPAY | PROVIDERS: Emergency Provider Emergency Medicine Emergency Medical Services; Visit Provider Radiology Diagnostic Radiology | DX: J18.9 Pneumonia, unspecified organism (principal) | CPT/HCPCS: 71046 ==

== ENCOUNTER 2025-04-01 10:52 | Outpatient (BNV) | payer OTHER, SELFPAY | END 2025-04-04 10:00 | PROVIDERS: Admitting Provider Nurse Practitioner Acute Care; Emergency Provider Emergency Medicine Emergency Medical Services; PCP Internal Medicine; Visit Provider Radiology Diagnostic Radiology | DX: R13.10 Dysphagia, unspecified (principal) | CPT/HCPCS: 74230 ==

== ENCOUNTER → 2025-04-01 10:52 | Outpatient (BNV) | payer OTHER, SELFPAY | PROVIDERS: Admitting Provider Nurse Practitioner Acute Care; Emergency Provider Emergency Medicine Emergency Medical Services; Visit Provider Nurse Practitioner Family | DX: J18.9 Pneumonia, unspecified organism (principal); A41.9 Sepsis, unspecified organism | CPT/HCPCS: 99232 ==

== ENCOUNTER 2025-05-19 13:08 | Outpatient (AMB) | payer OTHER, SELFPAY ==
[2025-05-19 13:29] VITALS: BP 127/67; PULSE 69; O2SAT 96; BMI 22.6
--- NOTE | 2025-05-19 13:29 | MHC.OFFVIS ---
Vital Signs 05/19/25 13:29 Height 4 ft 10 in Weight 108 lb BMI 22.6 BP 127/67 Blood Pressure Location Rt brachial Position Sitting Pulse 69 Pulse Source Pulse Oximeter Pulse Oximetry (%) 96 Oxygen Delivery Method Room Air Intake Visit Reasons: Shortness of breath Allergies iron (IRON) Allergy (Intermediate, Verified 05/19/25 13:33) STOMACH UPSET ondansetron (From Zofran) Allergy (Verified 05/19/25 13:33) Rash HPI HPI Shortness of breath: Details: 69-year-old, nonsmoker, referred for evaluation of dyspnea on exertion ongoing for months that worsened after recent hospitalization for what appears to be community-acquired pneumonia. patient states that she can walk sometimes up to 2 miles and experience dyspnea on exertion only then, however she does feel it significantly after climbing up ten steps on stairs. Patient denies prior personal or family history of lung disease. She does have mild seasonal allergies. Patient does have a dog as a pet. She also complains of progressive feeling like she has difficulty swallowing and/ or food has difficulty going down her esophagus. After the last office visit patient had follow-up CT chest that showed resolution of her previously noted multifocal infiltrates. Her modified barium swallow was normal and similarly her pulmonary function test was essentially normal to. She denies any symptoms at this time. [facility] Medical History Hyperlipidemia Social History Household Members: [facility] Do you presently have visiting nurse or other home services: No Comment: family staying bedside. Patient Tobacco Use Status: Never used Tobacco service: No Review of Systems Const Denies daytime sleepiness, Denies excessive sweating, Denies fatigue, Denies fever(s), Denies lethargy, Denies malaise, Denies night sweats, Denies snoring and Denies weight loss Eyes Denies blurry vision and Denies itchy eyes ENT Denies nasal congestion, Denies post nasal drip, Denies sinus pain, Denies sinus pressure and Denies other ( Thrush) Card Denies chest pain, Denies pedal edema, Denies dyspnea, Denies orthopnea and Denies paroxysmal nocturnal dyspnea Resp Denies cough, Denies hemoptysis, Denies excessive phlegm production, Denies dyspnea, Denies snoring and Denies wheezing GI Denies abdominal pain and Denies heartburn Musc Denies myalgias, Denies arthralgias and Denies joint swelling Skin/Breast Denies rash Neuro Denies memory loss and Denies seizure-like activity Psych Denies abnormal sleep pattern, Denies anxiety and Denies memory loss Endo Denies excessive sweating, Denies fatigue and Denies heat intolerance Kurt/Lymph Denies easy bruising Aller/Immun Denies itchy eyes, Denies seasonal rhinorrhea and Denies wheezing Physical Exam Vital Signs: Last Vital Signs Pulse 69 05/19/25 13:29 BP 127/67 05/19/25 13:29 Pulse Ox 96 05/19/25 13:29 Oxygen Delivery Method Room Air 05/19/25 13:29 BMI result Body Mass Index 22.6 Const General: no acute distress and alert Nutritional Appearance: not obese Orientation/consciousness: Other orientation findings ( oriented) HEENT Head: Yes atraumatic Eyes General: appearance normal, both eyes and all related structures Sclerae: sclerae normal EOM: EOMs intact bilaterally Neck Neck: Yes supple Lymphatic: no lymphadenopathy noted Resp Effort & Inspection: normal respiratory effort and no use of accessory muscles Auscultation: clear to auscultation bilaterally Cardio Rate: regular rate Rhythm: regular rhythm Heart sounds: no gallops, no murmurs and no rubs Skin General skin exam: other ( warm) Extrem General: No clubbing, No cyanosis and No edema Assessment & Plan Assessment & Plan (1) Abnormal CT scan, chest: Code(s): R93.89 - Abnormal findings on diagnostic imaging of other specified body structures Category: Medical Plan: Results of follow-up CT chest reviewed, resolved previously not multifocal infiltrates. (2) CAP (community acquired pneumonia): Code(s): J18.9 - Pneumonia, unspecified organism Category: Medical Qualifiers: Laterality: right Lung location: middle lobe of lung Qualified Code(s): J18.9 - Pneumonia, unspecified organism Plan: Resolved. (3) Difficulty swallowing: Code(s): R13.10 - Dysphagia, unspecified Category: Medical Plan: Results of modified barium swallow reviewed and are normal. Medications: Discontinued azithromycin next dose tomorrow Discontinued Reason: Patient Completed Course 250 mg PO DAILY 1 day 1 tab 0RF cefuroxime axetil Discontinued Reason: Patient Completed Course 500 mg PO BID 6 days 12 tabs 0RF Coding Level of Care Code Est Pt Level 3 (33850) Diagnoses Abnormal CT scan, chest R93.89 Community acquired pneumonia of right middle lobe of lung J18.9 Laterality: right Lung location: middle lobe of lung Difficulty swallowing R13.10
== END 2025-05-19 13:44 | disposition home or self-care (01) ==
LOC: HO.HPS 13:09
PROVIDERS: PCP Internal Medicine; Visit Provider Internal Medicine Pulmonary Disease
DX: R93.89 Abnormal findings on diagnostic imaging of other specified body structures (principal); J18.9 Pneumonia, unspecified organism; R13.10 Dysphagia, unspecified
CPT/HCPCS: 99213

== ENCOUNTER 2025-05-23 10:32 | Day surgery (SDC) | payer OTHER, SELFPAY ==
--- OUTSIDE RECORDS SUMMARY | 2025-04-23 11:42 | XMS_ITS | Patient Health Record ---
Author Organization [facility] Address [address] [place] [address] Care Team Providers Care Senior Assistant Manager Name Role Phone Karla Jennings Primary Care Provider Crescencio Soliman Jr Unavailable [phone] Allergies Allergen (clinical drug ingredient) Drug/Non Drug Allergy documented on EMR Reaction Allergy Type Onset Date Status iron Iron Unknown Drug Allergy Active Zofran Unknown Drug Allergy Active Reason For Referral No Information Medications Medication SIG (Take, Route, Fr equency, Duration) Notes Start Date End Date Status Multi Adult Gummies - as directed Orally 5 Active ZyrTEC 10 MG 1 tablet Orally Once a day for 30 day(s) 04/23/2025 Active Immunizations Vaccine Route Administration Date Status Comme nts Influenza Unknown 08/13/2024 Administered Social History Tobacco Use: Social History Observation Description Date Details (start date - stop date) Never Smoker NA - NA Tobacco Control (Standard) Question Answer Notes Tobacco use: Nonsmoker AUDIT-C (Standard) Question Answer Notes Did you have a drink containing alcohol in the p ast year? No Points 0 Interpretation Negative Problems Problem Type SNOMED Code ICD Code Onset Dates Problem Status W/U Status Risk Notes Problem Colon cancer screening (426753436) Colon cancer screening (Z12.11) Active confirmed Problem Pre-procedure evaluation check (629279961) Encounter for other preprocedural examination (Z01.818) Active confirmed Problem History of adenomatous polyp of colon (Z86.0101) Active confirmed Vital Signs Temperature 98.6 degrees Fahrenheit 04/23/2025 Blood pressure diastolic 01 mm Hg 04/23/2025 Height 58 in 04/23/2025 Blood pressure systolic 001 mm Hg 04/23/2025 Weight 107.2 lbs 04/23/2025 BMI 22.4 kg/m2 04/23/2025 Encounters Encounter Location Date Provider Diagnosis [facility] [address] [facility] [address] [place] [id number] 04/23/2025 Crescencio Gonzales Jr Colon cancer screening Z12.11 ; Encounter for other preprocedural examination Z01.818 and History of adenomatous polyp of colon Z86.0101 [facility] [address] [place] [id number] 12/30/2024 Crescencio Gonzales Jr Assessments Encounter Date Diagnosis (ICD Code) Assessment Notes Treatment Notes Treatment Clinical Notes Section Notes 04/23/2025 Colon cancer screening (ICD-10 - Z12.11) We discussed colonoscopy today. We discussed risks and benefits of the procedure today. She understands these and agrees to proceed. This will be scheduled at her convenience 04/23/2025 Encounter for other preprocedural examination (ICD-10 - Z01.818) We discussed colonoscopy today. We discussed risks and benefits of the procedure today. She understands these and agrees to proceed. This will be scheduled at her convenience 04/23/2025 History of adenomatous polyp of colon (ICD-10 - Z86.0101) We discussed colonoscopy today. We discussed risks and benefits of the procedure today. She understands these and agrees to proceed. This will be scheduled at her convenience Plan Of Treatment Future Test Test Name Order Date COLONOSCOPY 04/23/2025 Next Appt Details Provider Name:Crescencio dwyer Jr, 05/23/2025 12:00:00 PM, [address] [place] [address] , [place], [place], [id number], Insurance Providers Payer Name Payer Address Payer Phone Subscriber Number Group Number Insured Name Patient Relationship to Insured Coverage Start Date Coverage End Date [employer] [place] [address] [address] [place] [address] [id number] CELIA SIERRA Self - patient is the insured Medical (General) History Medical History History ICD Code Elevated blood sugar Colonoscopy 2019, tubular adenoma, 5-yea r follow-up Iron deficiency anemia Abnormal Pap smear, ASCUS, negative HPV Esophageal dysmotility
[2025-05-21 10:52] VITALS: BMI 22.4
--- NOTE | 2025-05-21 14:20 | HO.ANESPROP2 ---
Documented by User: Kelsie Asif NP 05/21/25 14:20 HPI - Anesthesia Eval Consult details Narrative: 70yo F for Colonoscopy PMFSH Active Problems Active Problems: All Active Problems CAP (community acquired pneumonia) (Acute) Abnormal CT scan, chest (Acute) Difficulty swallowing (Acute) Dyspnea on exertion (Acute) Streptococcal bacteremia (Acute) Past Medical History Medical History Pneumonia Esophageal dysmotility Iron deficiency anemia Hyperlipidemia Surgical History Surgical History H/O colonoscopy Social History Social History Household Members: [facility] Do you presently have visiting nurse or other home services: No Comment: family staying bedside. Patient Tobacco Use Status: Never used Tobacco service: No Meds Allergies Allergy/AdvReac Type Severity Reaction Status Date / Time ondansetron (From Zofran) Allergy Intermediate Rash Verified 05/21/25 10:52 iron (IRON) AdvReac Intermediate STOMACH Verified 05/21/25 10:52 UPSET Home Medications ?Medication ?Instructions ?Recorded ?Confirmed ?Last Taken ?Type cetirizine 10 mg tablet (Zyrtec) 10 mg PO DAILY 04/01/25 05/21/25 03/31/25 History oewmaeaz-eyw-UZ 0.4 mg-calcium 162 1 tab PO DAILY 04/01/25 05/21/25 03/31/25 History mg-iron 18 mu-rgqdvxe-pathlt tablet Exam Height,Weight and Vital Signs: Height 4 ft 10 in Weight 48.625 kg Assessment and Plan Assessment Anesthesia Assessment: Chart Reviewed Documented by User: Madan Reyes MD 05/23/25 12:09 PMFSH Past Medical History Medical History Pneumonia Esophageal dysmotility Iron deficiency anemia Hyperlipidemia Cognitive capacity: normal Family History Family history of problems with anesthesia: No Surgical History Surgical History H/O colonoscopy History of Problems with Anesthesia: No Social History Social History Household Members: Family Housing: Condominium Do you presently have visiting nurse or other home services: No Comment: family staying bedside. Patient Tobacco Use Status: Never used Tobacco service: No Meds Allergies Allergy/AdvReac Type Severity Reaction Status Date / Time ondansetron (From Zofran) Allergy Intermediate Rash Verified 05/21/25 10:52 iron (IRON) AdvReac Intermediate STOMACH Verified 05/21/25 10:52 UPSET Home Medications ?Medication ?Instructions ?Recorded ?Confirmed ?Last Taken ?Type cetirizine 10 mg tablet (Zyrtec) 10 mg PO DAILY 04/01/25 05/21/25 03/31/25 History jepvycnx-ziz-IH 0.4 mg-calcium 162 1 tab PO DAILY 04/01/25 05/21/25 03/31/25 History mg-iron 18 vh-hktjhun-qghjdx tablet Exam Exam Date and Time: 05/23/2025 Airway Mallampati Class: II TM Dist: >3cm Neck ROM: Full Loose/Missing/Broken Teeth: No Heart: rrr Lungs: cta Other: oriented Assessment and Plan Assessment Anesthesia Assessment: Anesthesia Plan Discussed Final Anesthetic Review Family History of Problems with Anesthesia: No History of Problems with Anesthesia: No NPO: Yes ASA Class: II Final Preanesthetic Review: No Changes in Pt Med Stat, Meds/Allgs Chart Reviewed and Consent Obtained/Reviewed Patient Risk: Low Procedure Risk: Low Anesthetic Plan Anesthetic Plan: MAC: Disposition: Standard PACU
[2025-05-23 10:39] VITALS: BMI 19.7
[2025-05-23 10:55] VITALS: BP 140/69; PULSE 77; RESP 16; TEMP 36.8; O2SAT 96
[2025-05-23] MEDS: Lactated Ringers 1,000 ML 100 ML IVCONT (10:57)
--- NOTE | 2025-05-23 12:06 | P.HPSUR_ITS ---
Pre-Procedural Eval Section A - 24 Hr Update-Section A only Date of Service: 05/23/25 Section B - Complete if H&P > 30 days Chief Complaint: screening Details of Present Illness: see H&P no changes Relevant Family History (Specify if Yes): No Relevant Social History: None Present Medications: see Short Stay Collaborative assessment Medical History: No relevant PMH History of Previous Operations: No relevant previous surgery Allergies: Allergies Allergy/AdvReac Type Severity Reaction Status Date / Time ondansetron (From Zofran) Allergy Intermediate Rash Verified 05/21/25 10:52 iron (IRON) AdvReac Intermediate STOMACH Verified 05/21/25 10:52 UPSET Review of Systems Sugical H&P ROS: Negative: Constitution, Cardiovascular, Respiratory, Neurological, Psychiatric, Hem-Onc, Allergic/Immunologic, Gastrointestinal, Genitourinary, Musculoskeletal, Integumentary, Endocrine and Eyes/Ears/Nose/Throat Exam Surgical H&P Exam: Normal: HEENT, Normal: Heart, Normal: Lungs, Normal: Ex tremities, Normal: Abdomen, Normal: Skin and Normal: Neurological Plan Diagnosis/Plan: Unchanged I have reviewed the history and physical and performed a pertinent physical examination on my patient. No changes have occurred unless specified. Time Spent With Patient Time: Total time managing care of this patient today ____ minutes.
[2025-05-23 12:41] VITALS: BP 110/70; PULSE 66; RESP 16; TEMP 36.3; O2SAT 97
[2025-05-23 12:45] VITALS: BP 94/46; PULSE 61; RESP 16; O2SAT 97
--- NOTE | 2025-05-23 12:47 | P.BOP_ITS ---
Brief Operative Note Date of Service: 05/23/25 Pre-op diagnosis: screening Post-op diagnosis: same Procedure: colo Surgeon: Crescencio Gonzales MD Anesthesia: MAC Was an Business Intelligence Engineer used for this Procedure?: No Estimated blood loss (mL): 2 Pathology: other Condition: stable Disposition: PACU
[2025-05-23 13:00] VITALS: BP 122/60; PULSE 65; RESP 16; O2SAT 97
[2025-05-23 13:12] VITALS: BP 131/61; PULSE 67; RESP 16; TEMP 36.6; O2SAT 97
--- NOTE | 2025-05-23 21:35 | OP_ITS ---
DATE OF SERVICE: 05/23/2025 SURGEON: Crescencio Gonzales MD INDICATIONS: Colon cancer screening and personal history of colon polyps. PREOPERATIVE DIAGNOSIS: POSTOPERATIVE DIAGNOSIS: PROCEDURE PERFORMED: Colonoscopy to the terminal ileum. ESTIMATED BLOOD LOSS: COMPLICATIONS: ANESTHESIA: Monitored anesthesia care. ASSISTANTS: SPECIMENS: DESCRIPTION OF PROCEDURE: A history and physical was performed. The risks and benefits of the procedure were explained to the patient, and informed consent was obtained. The patient was placed in the left lateral decubitus position. A digital rectal exam was performed and was found to be normal. The Olympus pediatric video colonoscope was introduced into the rectum and advanced to the cecum. The cecum was identified by transillumination, palpation, and identification of ileocecal valve. Examination was performed. The scope was removed. She tolerated the procedure well was returned to the recovery area in stable condition. FINDINGS: The terminal ileum was examined and appeared normal. The visualized colonic mucosa was normal. The quality of the prep was good. No polyps were identified. There was mild nonspecific erythema in the rectum and random rectal biopsies were obtained to evaluate for any evidence of proctitis or colitis. IMPRESSION: Normal colonoscopy. RECOMMENDATION: 1. Follow up the biopsy results. 2. Repeat colonoscopy is recommended in 10 years for average-risk individuals. MD DINA Stanley/NAVEENL / [id number]
== END 2025-05-23 13:30 | disposition home or self-care (01) ==
PROVIDERS: PCP Internal Medicine; Visit Provider Internal Medicine Gastroenterology
PROC: 0DJD8ZZ Inspection of Lower Intestinal Tract, Via Natural or Artificial Opening Endoscopic (ICD-10-PCS; CPT 45378; principal; 2025-05-23 12:00)
DX: Z12.11 Encounter for screening for malignant neoplasm of colon (principal); Z86.0101 Personal history of adenomatous and serrated colon polyps; E78.5 Hyperlipidemia, unspecified; D50.9 Iron deficiency anemia, unspecified
CPT/HCPCS: 45380; 88305; J2003; J2704; J3010

== ENCOUNTER 2025-07-09 09:03 | Outpatient (REF) | payer MEDICARE, SELFPAY ==
--- OUTSIDE RECORDS SUMMARY | 2025-07-09 09:26 | XMS_ITS | Clinical Summary ---
Author Organization [facility] ity Address [address] [place] [address] Care Team Providers Care Rental Coordinator Name Role Phone Unavailable Primary Care Provider [...] Vaccine ( - 2023-2 5 season) 2024 Depression Screening 11/27/2024 Influenza Vaccine (#1) 2025 RSV Immunization Adult Patients (1 - [...] Procedure Name Priority Date/Time Associated Diagnosis Comments [facility] SCREENING DIGITAL Routine 02/18/2021 4:48 PM EDT Encounter for screening mammogram for malignant neoplasm of breast from Last 3 Months or Most Recently Relevant to Health Maintenance Results * [facility] SCREENING DIGITAL (02/18/2021 4:48 PM EDT) Anatomical Region Laterality Modality Mammography 02/18/2021 3:13 PM EDT Narrative 02/18/2021 4:48 PM EDT [facility] Diagnostic Imaging Department [address] [place] [address] Patient: ADALNENA /Age/Sex: 1955 - 65 - F Unit#: [id number] Location/Status: [facility] Mnemonic/Ordering Site: [facility] Ordering Physician: KARLA GUERRERO MD [facility] Screening Digital - 02/18/21 - 1550 INDICATION: SCREENING COMPARISON: [facility] mammograms dating back to 08/17/2015 TECHNIQUE: CC and MLO views of the breasts were obtained, using full field digital mammography with 3D tomosynthesis views in the MLO projection. Computer aided detection with the [employer] 7.2-H was employed. FINDINGS: The breasts contain scattered fibroglandular tissues. No suspicious masses, suspicious microcalcifications, or areas of architectural distortion are identified. There are no secondary signs of breast malignancy. IMPRESSION: No specific mammographic evidence of breast malignancy. Lack of an imaging correlate should not deter or delay biopsy of a clinically significant palpable finding. BI-RADS - Category 1: Negative 3341F, 7025F Annual screening mammography is recommended. Patient entered into a reminder system with a target date for the next mammogram. G0674 / 08696) , [id number] Dictating Physician: GARY MANUEL MD Electronically Signed by: GARY MANUEL MD Dic Date/Time: 02/18/211645 Sign date/Time: 02/18/21 1648 Procedure Note Gary Manuel MD - 11/15/2022 [facility] Diagnostic Imaging Department [address] [place] [address] Patient: NENA GALEAS /Age/Sex: 1955 - 65 - F Unit#: [id number] [facility] Mnemonic/Ordering Site: [facility] Ordering Physician: KARLA GUERRERO MD [place] Screening Digital - 02/18/21 - 8812 INDICATION: SCREENING COMPARISON: [facility] mammograms dating back to 08/17/2015 TECHNIQUE: CC and MLO views of the breasts were obtained, using full field digital mammography with 3D tomosynthesis views in the MLO projection. Computer aided detection with the [employer] 7.2-H was employed. FINDINGS: The breasts contain [...] date for the next mammogram. G0202 / 99034 , [id number] Dictating Physician: GARY MANUEL MD Electronically Signed by: GARY MANUEL MD Dic Date/Time: 02/18/21 1646 Sign date/Time: 02/18/21 1648 us Karla Guerrero MD IMG BI PROCEDURES Final Resul t from Last 3 Months or Most Recently Relevant to Health Maintenance
[2025-07-09 10:37] LABS: Alanine Aminotransferase 19 U/L (0-31); Albumin Level 4.2 g/dL (3.5-5.0); Alkaline Phosphatase 79 U/L (39-117); Anion Gap 11 (12-20); Aspartate Amino Transferase 27 U/L (5-31); Blood Urea Nitrogen 15 mg/dL (9-16); Calcium 9.1 mg/dL (8.4-10.2); Carbon Dioxide 30 mmol/L (22-29); Chloride 107 mmol/L (96-108); Cholesterol 208 mg/dL (<200); Estimated Glomerular Filt Rate > 60; HDL Cholesterol 49 mg/dL (>40); Potassium 4.6 mmol/L (3.3-5.1); Sodium 143 mmol/L (135-145); Total Protein 7.7 g/dL (6.5-8.0); Triglycerides 96 mg/dL (<150)
[2025-07-09 11:28] LABS: Hemoglobin A1C 231.0830 umol/L; Total Hemoglobin (HGBA1C) 5477.1736 umol/L
== END 2025-07-09 09:04 | disposition home or self-care (01) ==
LOC: HO.LAB 09:03
PROVIDERS: PCP Internal Medicine; Visit Provider Internal Medicine
DX: I10 Essential (primary) hypertension (principal); E11.9 Type 2 diabetes mellitus without complications; E78.00 Pure hypercholesterolemia, unspecified; K22.4 Dyskinesia of esophagus
CPT/HCPCS: 36415; 80053; 80061; 83036

== ENCOUNTER 2025-08-20 11:36 | Outpatient (REF) | payer MEDICARE, SELFPAY ==
--- OUTSIDE RECORDS SUMMARY | 2025-01-01 07:20 | XMS_ITS ---
Author Organization [facility] Address [address] [place] [phone] Care Team Providers Care Support Service Tech Name Role Phone Karla Jennings Primary Care Provider Crescencio Soliman Jr [phone] REASON FOR VISIT Patient presents today for a colon screening Encounters Encounter Location Date Provider Diagnosis [facility] [address] [place] [phone] 01/01/2025 Crescencio Gonzales Jr Plan Of Treatment No Information Progress Notes * CELIA GALEAS TDOB:[birth year] (70 yo F)Acc No.[id number]:01/01/2025 Progress Notes Patient: CELIA WILEY Provider: Jovita Gonzales MD :1955 A ge:69 Y S ex:Female Date:01/01/2025 Address:[address] [place] [address] [address] , [id number] Pcp:Karla Jennings Subjective: * Chief Complaints: * [...] Pending * Provider: Jovita Gonzales MD Date: 01/01/2025 Generated for Nikunj robert/Gwendolyn/eTsergeismitting on: 0 08/20/2025 02:40 PM EDT
--- OUTSIDE RECORDS SUMMARY | 2025-05-23 08:00 | XMS_ITS ---
Author Organization [facility] Address [address] [place] [address] Care Team Providers Care Chemical Test Engineer Name Role Phone Karla Jennings Primary Care Provider Crescencio Soliman Jr REASON FOR VISIT screening Encounters Encounter Location Date Provider Diagnosis [facility] [place] [address] [place], [place] [phone] 05/23/2025 Crescencio Gonzales Jr Colon cancer screening Z12.11 Assessments Encounter Date Diagnosis (ICD Code) Assessment Notes Treatment Notes Treatment Clinical Notes Section Notes 05/23/2025 Colon cancer screening (ICD-10 - Z12.11) Plan Of Treatment No Information Progress Notes * ADALCELIA TDOB:[birth year] (70 yo F)Acc No.[id number]:05/23/2025 COLON WITH MAC Patient: CELIA WILEY Provider: Jovita Gonzales MD :1955 A ge:70 Y S ex:Female Date:05/23/2025 Address:[address] [place] [address] [address] , [place], [id number] Pcp:Karla Jennings Subjective: * Chief Complaints: * [...] MD Date: 0 05/23/2025 Generated for Nikunj robert/Gwendolyn/Monaitting on: 0 08/20/2025 02:40 PM EDT
--- NOTE | ~2025-08-20 | US_ITS ---
EXAMINATION: US DIAGNOSTIC ULTRASOUND BREAST, LEFT CLINICAL INFORMATION: 6 month follow-up for solid mass versus complicated cyst left breast at 2:00 4 cm from the nipple.. COMPARISON: Comparison is made with relevant prior imaging. TECHNIQUE: Ultrasound of the breast is performed with real-time perez scale imaging and color Doppler. FINDINGS: Targeted color Doppler ultrasound at 2:00 4 7 m from the nipple again demonstrates a hypoechoic oval circumscribed solid mass versus complicated cyst measuring 4 x 3 x 4 mm not significantly changed from prior. There is an additional adjacent solid mass versus compensated cyst at 2:00 4 cm from the nipple measuring 3 x 2 x 2 mm. Results are discussed with the patient at time of visit. US/US Breast LT Limited Mamm Only IMPRESSION: 2 solid masses versus complicated cysts in the left breast at 2:00 4 7 m from the nipple. Recommend 6 month follow-up ultrasound for further evaluation of stability, at that time the patient will be due for bilateral mammography and evaluation on mammography can be obtained. ASSESSMENT: BI-RADS 3: Probably Benign RECOMMENDATION: Diagnostic mammography and ultrasound in 6 months. This patient's information was entered into a reminder system with a target due date for their next mammogram. Electronically signed by: Tanya Roque DO 08/20/2025 12:16 PM EDT
--- OUTSIDE RECORDS SUMMARY | 2025-08-20 14:40 | XMS_ITS | Patient Health Record ---
Author Organization [facility] Address [address] [place] [address] Care Team Providers Care Scientific Technical Writer Name Role Phone Karla Jennings Primary Care Provider Crescencio Soliman Jr Unavailable [phone] Allergies Allergen (clinical drug ingredient) Drug/Non Drug Allergy documented on EMR Reaction Allergy Type Onset Date Status iron Iron Unknown Drug Allergy Active Zofran Unknown Drug Allergy Active Results Component Value Reference Range Notes Pathology Reviewed date:05/27/2025 03:46:56 PM Interpretation: Performing Lab:[facility], [address] [place] [phone] Notes/Report: Reason For Referral No Information Medications Medication SIG (Take, Route, Fr equency, Duration) Notes Start Date End Date Status Multi Adult Gummies - as directed Orally Active ZyrTEC 10 MG 1 tablet Orally [...] Status Risk Notes Problem Colon cancer screening (393475716) Colon cancer screening (Z12.11) Active confirmed Problem Pre-procedure evaluation check (942273069) Encounter for other preprocedural examination (Z01.818) Active confirmed Problem History of adenomatous polyp of colon (420018566) History of adenomatous polyp of colon (Z86.0101) Active confirmed Vital Signs Temperature 98.6 degrees Fahrenheit 04/23/2025 Blood pressure diastolic 01 mm Hg 04/23/2025 Height 58 in 04/23/2025 Blood pressure systolic 001 mm Hg 04/23/2025 Weight 107.2 lbs 04/23/2025 BMI 22.4 kg/m2 04/23/2025 Encounters Encounter Location Date Provider Diagnosis [facility] [place] Out[place] [address] [place] [id number] 05/23/2025 Crescencio Gonzales Jr Colon cancer screening Z12.11 [facility] [address] [place] [phone] 04/23/2025 Crescencio Gonzales Jr Colon cancer screening Z12.11 ; Encounter for other preprocedural examination Z01.818 and History of adenomatous polyp of colon Z86.0101 [facility] [address] [place] [phone] 12/30/2024 Crescencio Gonzales Jr [facility] [address] [place] [phone] 05/27/2025 Crescencio Gonzales Jr Assessments Encounter Date Diagnosis (ICD Code) Assessment Notes Treatment Notes Treatment Clinical Notes Section Notes 05/23/2025 Colon cancer screening (ICD-10 - Z12.11) 04/23/2025 Colon cancer screening (ICD-10 - Z12.11) [...] Test Test Name Order Date COLONOSCOPY 04/23/2025 Insurance Providers Payer Name Payer Address Payer Phone Subscriber Number Group Number Insured Name Patient Relationship to Insured Coverage Start Date Coverage End Date [employer] [address] [address] [place] [address] [id number] CELIA SIERRA Self - patient is the insured Medical (General) History Medical History History ICD Code Elevated blood sugar Colonoscopy 2019, tubular adenoma, 5-yea r follow-up Iron deficiency anemia Abnormal Pap smear, ASCUS, negative HPV Esophageal dysmotility
--- OUTSIDE RECORDS SUMMARY | 2025-08-20 14:41 | XMS_ITS | Clinical Summary ---
Author Organization [facility] ity Address [address] [place] [address] Care Team Providers Care Food Service Order Clerk Name Role Phone Unavailable Primary Care Provider [...] Cancer Screening 02/18/2023 02/19/20 21, 09/11/2019, 08/02/2018 Depression Screening 11/27/2024 COVID-19 Vaccine ( - 2023-2 5 season) 2025 Influenza Vaccine (#1) 2025 RSV Immunization Adult [...] Procedure Name Priority Date/Time Associated Diagnosis Comments [facility] SCREENING DIGITAL Routine 02/18/2021 4:48 PM EDT Encounter for screening mammogram for malignant neoplasm of breast from Last 3 Months or Most Recently Relevant to Health Maintenance Results * [facility] SCREENING DIGITAL (02/18/2021 4:48 PM EDT) Anatomical Region Laterality Modality Mammography 02/18/2021 3:13 PM EDT Narrative 02/18/2021 4:48 PM EDT [facility] Diagnostic Imaging Department [address] [place] [address] Patient: ADALNENA /Age/Sex: 1955 - 65 - F Unit#: [id number] Location/Status: [facility] Mnemonic/Ordering Site: [facility] Ordering Physician: KARLA GUERRERO MD [facility] Screening Digital - 02/18/21 - 1550 INDICATION: SCREENING COMPARISON: [facility] mammograms dating back to 08/17/2015 TECHNIQUE: CC and MLO views of the breasts were obtained, using full field digital mammography with 3D tomosynthesis views in the MLO projection. Computer aided detection with the [employer] 7.2-H was employed. FINDINGS: The breasts contain [...] a target date for the next mammogram. G0854 / 60347) , [id number] Dictating Physician: GARY MANUEL MD Electronically Signed by: GARY MANUEL MD Dic Date/Time: 02/18/211645 Sign date/Time: 02/18/21 1648 Procedure Note Gary Manuel MD - 11/15/2022 [facility] Diagnostic Imaging Department [address] [place] [address] Patient: NENA GALEAS /Age/Sex: 1955 - 65 - F Unit#: [id number] [facility] Mnemonic/Ordering Site: [facility] Ordering Physician: KARLA GUERRERO MD [place] Screening Digital - 02/18/21 - 9776 INDICATION: SCREENING COMPARISON: [facility] mammograms dating back to 08/17/2015 TECHNIQUE: CC and MLO views of the breasts were obtained, using full field digital mammography with 3D tomosynthesis views in the MLO projection. Computer aided detection with the [employer] 7.2-H was employed. FINDINGS: The breasts contain [...] date for the next mammogram. G0202 / 82559 , 97731 Dictating Physician: GARY MANUEL MD Electronically Signed by: GARY MANUEL MD Dic Date/Time: 02/18/21 1646 Sign date/Time: 02/18/21 1648 us Karla Guerrero MD IMG BI PROCEDURES Final Resul t from Last 3 Months or Most Recently Relevant to Health Maintenance
== END 2025-08-20 11:37 | disposition home or self-care (01) ==
LOC: HO.MAMMO 11:36
PROVIDERS: PCP Internal Medicine; Visit Provider Internal Medicine
DX: R92.2 Inconclusive mammogram (principal)
CPT/HCPCS: 76642

== ENCOUNTER → 2025-08-20 12:00 | Outpatient (BNV) | payer MEDICARE, SELFPAY | PROVIDERS: PCP Internal Medicine; Visit Provider Internal Medicine | DX: R92.8 Other abnormal and inconclusive findings on diagnostic imaging of breast (principal) | CPT/HCPCS: 76642 ==

== ENCOUNTER 2025-10-09 08:05 | Outpatient (REF) | payer MEDICARE, SELFPAY ==
--- OUTSIDE RECORDS SUMMARY | 2025-01-01 06:20 | XMS_ITS ---
Author Organization [facility] Address [address] [place] [phone] Care Team Providers Care Electronic Page Makeup System Operator Name Role Phone Karla Jennings Primary Care Provider Crescencio Soliman Jr REASON FOR VISIT Patient presents today for a colon screening Encounters Encounter Location Date Provider Diagnosis [facility] [address] [place] [phone] 01/01/2025 Crescencio Gonzales Jr Plan Of Treatment No Information Progress Notes * CELIA GALEAS TDOB:[birth year] (70 yo F)Acc No.[id number]:01/01/2025 Progress Notes Patient: CELIA WILEY Provider: Jovita Gonzales MD :1955 A ge:69 Y S ex:Female Date:01/01/2025 Address:[address] [place] [address] [address] , [id number] Pcp:Karla Jennings Subjective: * Chief Complaints: * 1 . Patient presents today for a colon screening. * Medical History: Objective: * Vitals: Assessment: Plan: * Treatment: * * The named appointment provid er may or may not be the originator of this progress note, and it is not deemed complete until electronically signed by the appointment provider. Sign off status: Pending * Provider: Jovita Gonzales MD Date: 0 01/01/2025 Generated for Nikunj robert/Gwendolyn/eTransmitting on: 12/09/2024 08:20 AM EST
--- OUTSIDE RECORDS SUMMARY | 2025-05-23 07:00 | XMS_ITS ---
Author Organization [facility] Address [address] [place] [address] Care Team Providers Care Trencher Driver Name Role Phone Karla Jennings Primary Care Provider Crescencio Soliman Jr [phone] REASON FOR VISIT screening Encounters Encounter Location Date Provider Diagnosis [facility] [address] [place], [place] [id number] 05/23/2025 Crescencio Gonzales Jr Colon cancer screening Z12.11 Assessments Encounter Date Diagnosis (ICD Code) Assessment Notes Treatment Notes Treatment Clinical Notes Section Notes 05/23/2025 Colon cancer screening (ICD-10 - Z12.11) Plan Of Treatment No Information Progress Notes * ADALCELIA TDOB:[birth year] (70 yo F)Acc No.[id number]:05/23/2025 COLON WITH MAC Patient: CELIA WILEY Provider: Jovita Gonzales MD :[id number] A ge:70 Y S ex:Female Date:05/23/2025 Address:[address] [place] [address] [address] , [place], [id number] Pcp:Karla Jennings Subjective: * Chief Complaints: * 1 . Screening. * Medical History: Objective: * Vitals: Assessment: * Assessment: 1. C olon cancer screening - Z12.11 (Primary) Plan: * Treatment: * Procedure Codes: 4 5378 DIAGNOSTIC COLONOSCOPY, 0529F INTRVL 3+YRS PTS CLNSCP DOCD, 0528F RCMND FLW-UP 10 YRS DOCD * * The named appointment provid er may or may not be the originator of this progress note, and it is not deemed complete until electronically signed by the appointment provider. Sign off status: Pending * Provider: Jovita Gonzales MD Date: 0 05/23/2025 Generated for Nikunj robert/Gwendolyn/Vera on: 1 12/09/2024 08:19 AM EST
--- OUTSIDE RECORDS SUMMARY | 2025-10-09 08:20 | XMS_ITS | Patient Health Record ---
Author Organization [facility] Address [address] [place] [address] Care Team Providers Care Inspecting And Testing Lead Hand Name Role Phone Karla Jennings Primary Care Provider Crescencio Soliman Jr Unavailable Allergies Allergen (clinical drug ingredient) Drug/Non Drug Allergy documented on EMR Reaction Allergy Type Onset Date Status iron Iron Unknown Drug Allergy Active Zofran Unknown Drug Allergy Active Results Component Value Reference Range Notes Pathology Reviewed date:05/27/2025 03:46:56 PM Interpretation: Performing Lab:[facility], [address] [place] [phone] Notes/Report: Reason For Referral No Information Medications Medication SIG (Take, Route, Fr equency, Duration) Notes Start Date End Date Status ZyrTEC 10 MG 1 tablet Orally Once a day; Duration: 30 day(s) 04/23/2025 Unknown Multi Adult Gummies - as directed Orally 5 Unknown Immunizations Vaccine Route Administration Date Status Comme [...] Status Risk Notes Problem Colon cancer screening (755077838) Colon cancer screening (Z12.11) Active confirmed Problem Pre-procedure evaluation check (096976198) Encounter for other preprocedural examination (Z01.818) Active confirmed Problem History of adenomatous polyp of colon (651144688) History of adenomatous polyp of colon (Z86.0101) Active confirmed Vital Signs Temperature 98.6 degrees Fahrenheit 04/23/2025 Blood pressure diastolic 01 mm Hg 04/23/2025 Height 58 in 04/23/2025 Blood pressure systolic 001 mm Hg 04/23/2025 Weight 107.2 lbs 04/23/2025 BMI 22.4 kg/m2 04/23/2025 Encounters Encounter Location Date Provider Diagnosis [facility] [place] Outpatient [address] [place] [phone] 05/23/2025 Crescencio Gonzales Jr Colon cancer screening Z12.11 [facility] [address] [place] [phone] 04/23/2025 Crescencio Gonzales Jr Colon cancer screening Z12.11 ; Encounter for other preprocedural examination Z01.818 and History of adenomatous polyp of colon Z86.0101 [facility] [address] [place] [phone] 12/30/2024 Crescencio Gonzales Jr [facility] [address] [place] [phone] 04/23/2025 Crescencio Gonzales Jr [facility] [address] [place] [phone] 05/27/2025 Crescencio Gonzales Jr Assessments Encounter Date [...] End Date [employer] [address] [address] [place] [address] [id number] CELIA SIERRA Self - patient is the insured Medical (General) History Medical History History ICD Code Elevated blood sugar Colonoscopy 2019, tubular adenoma, 5-yea r follow-up Iron deficiency anemia Abnormal Pap smear, ASCUS, negative HPV Esophageal dysmotility
--- OUTSIDE RECORDS SUMMARY | 2025-10-09 08:20 | XMS_ITS | Clinical Summary ---
Author Organization [facility] ity Address [address] [place] [address] Care Team Providers Care Fisheries Specialist Name Role Phone Unavailable Primary Care Provider [...] Procedure Name Priority Date/Time Associated Diagnosis Comments [facility] SCREENING DIGITAL Routine 02/18/2021 4:48 PM EDT Encounter for screening mammogram for malignant neoplasm of breast from Last 3 Months or Most Recently Relevant to Health Maintenance Results * [facility] SCREENING DIGITAL (02/18/2021 4:48 PM EDT) Anatomical Region Laterality Modality Mammography 02/18/2021 3:13 PM EDT Narrative 02/18/2021 4:48 PM EDT [facility] Diagnostic Imaging Department [address] [place] [address] Patient: ADALNENA /Age/Sex: 1955 - 65 - F Unit#: [id number] Location/Status: [facility] Mnemonic/Ordering Site: [facility] Ordering Physician: KARLA GUERRERO MD [facility] Screening Digital - 02/18/21 - 1550 INDICATION: SCREENING COMPARISON: [facility] mammograms dating back to 08/17/2015 TECHNIQUE: CC and MLO views of the breasts were obtained, using full field digital mammography with 3D tomosynthesis views in the MLO projection. Computer aided detection with the [employer] 7.2-H was employed. FINDINGS: The breasts contain [...] a target date for the next mammogram. G0167 / 74806) , [id number] Dictating Physician: GARY MANUEL MD Electronically Signed by: GARY MANUEL MD Dic Date/Time: 02/18/211645 Sign date/Time: 02/18/21 1648 Procedure Note Gary Manuel MD - 11/15/2022 [facility] Diagnostic Imaging Department [address] [place] [address] Patient: NENA GALEAS /Age/Sex: 1955 - 65 - F Unit#: [id number] [facility] Mnemonic/Ordering Site: [facility] Ordering Physician: KARLA GUERRERO MD [facility] Screening Digital - 02/18/21 - 1824 INDICATION: SCREENING COMPARISON: [facility] mammograms dating back to 08/17/2015 TECHNIQUE: CC and MLO views of the breasts were obtained, using full field digital mammography with 3D tomosynthesis views in the MLO projection. Computer aided detection with the [employer] 7.2-H was employed. FINDINGS: The breasts contain [...] date for the next mammogram. G0202 / 24173 , 87203 Dictating Physician: GARY MANUEL MD Electronically Signed by: GARY MANUEL MD Dic Date/Time: 02/18/21 1646 Sign date/Time: 02/18/21 1648 us Karla Guerrero MD IMG BI PROCEDURES Final Resul t from Last 3 Months or Most Recently Relevant to Health Maintenance
[2025-10-09 09:16] LABS: Cholesterol 153 mg/dL (<200); HDL Cholesterol 59 mg/dL (>40); Triglycerides 108 mg/dL (<150)
== END 2025-10-09 08:06 | disposition home or self-care (01) ==
LOC: HO.LAB 08:05
PROVIDERS: PCP Internal Medicine; Visit Provider Internal Medicine
DX: E78.00 Pure hypercholesterolemia, unspecified (principal); Z13.31 Encounter for screening for depression
CPT/HCPCS: 36415; 80061